=== PATIENT | female | born 1985 | race African-American/Black ===

== ENCOUNTER 2017-07-23 05:45 | Inpatient (IN) | payer MEDICAID, SELFPAY ==
[2017-07-16 14:49] VITALS: BMI 48.3
[2017-07-23] VITALS (20 sets, daily range): BP systolic 104–152; BP diastolic 64–97; PULSE 65–91; RESP 15–20; TEMP 36–37.1; O2SAT 97–100
[2017-07-23] MEDS: Lactated Ringers 1,000 ML 999 ML IV (06:00)
[2017-07-23 06:55] LABS: Absolute Lymphocyte Count 1.61 X10^3/ul (0.83-4.51); Absolute Neutrophil Count 3.5 X10^3/uL (2.0-7.7); Basophil# 0.01 X10^3/uL; Basophil% 0.2 % (0-1); Eosinophil# 0.12 X10^3/uL; Eosinophils% 2.1 % (0-5); Hematocrit 32.8 % (37-47); Hemoglobin 11.5 g/dl (12.0-15.0); Lymphocyte # 1.61 X10^3/ul (4.0); Lymphocyte % 28.3 % (19-41); Mean Corp Hgb Conc 35.1 g/gl (32-36); Mean Corpuscular Hgb 30.9 pg (27.0-32.0); Mean Corpuscular Volume 88.2 fL (81-99); Mean Platelet Vol. 9.9 fl (6.2-12.0); Monocyte# 0.41 X10^3/uL; Monocyte% 7.2 % (0-10); Neutrophil # 3.52 X10^3/uL (2.7-7.7); Platelet Count 195 K/mm3 (150-450); RBC Distribution Width CV 14.1 % (11.6-14.6); RBC Distribution Width SD 45.8 fl (35.1-43.9); Red Blood Count 3.72 M/mm3 (4.2-5.4); White Blood Count 5.7 K/mm3 (4.4-11.0)
[2017-07-23 06:56] LABS: POSITIVE COUNT NO; POSITIVE DIFFERENTIAL NO; POSITIVE MORPHOLOGY NO
[2017-07-23] MEDS: Sodium Citrate/Citric Acid 30 ML UDC PO (07:00)
[2017-07-23] MEDS: Lactated Ringers 1,000 ML 150 ML IV (07:00)
--- NOTE | 2017-07-23 07:14 | PCM.HP.OB ---
History Date of Admission: 07/23/17 Final MARIEL: 07/30/17 Gestational age: 39 Weeks and 0 Days History of this : Prior x2 Polyhydramnios HbC - no maternal intervention Pertinent Past Medical History: Chtn - on aldomet H/o PP depression See CCf H&P Allergies hydrocodone bitartrate [From Vicodin] Allergy (Verified 11/27/16 09:16) Hives meperidine HCl [From Demerol] Allergy (Verified 11/27/16 09:16) Hives Current Medications Citric Acid/Sodium Citrate (Bicitra) 30 ml PO UD TAJ Last Admin: 07/23/17 07:00 Dose: 30 ml Lactated Ringer's () 1,000 mls @ 150 mls/hr IV .Q6H40M TAJ Lactated Ringer's () 1,000 mls @ 999 mls/hr IV .Q1H1M TAJ PRN Reason: Wide Open Stop: 07/23/17 07:15 Last Admin: 07/23/17 07:00 Dose: 999 mls/hr Sodium Chloride () 0 ml IV UD TAJ Last Admin: 07/23/17 06:59 Dose: Not Given Smoking Status: Never smoker Alcohol: None Drug Use: none Number of Fetus(es): 1 Physical Exam General: Alert, Oriented x3 Abdomen: Soft, Non Tender, Non-Distended, Gravid Extremities:: No edema Assessment/Plan 31yo female for repeat Admit to L&D Proceed with repeat HbC - notify treasury consultant Social work consult PP Pre-op ancef Routine care
--- NOTE | 2017-07-23 07:18 | HP.PCM_ITS ---
History Date of Admission: 07/23/17 Final MARIEL: 07/30/17 Gestational age: 39 Weeks and 0 Days History of this : Prior x2 Polyhydramnios HbC - no maternal intervention Pertinent Past Medical History: Chtn - on aldomet H/o PP depression See CCf H&P Allergies hydrocodone bitartrate [From Vicodin] Allergy (Verified 11/27/16 09:16) Hives meperidine HCl [From Demerol] Allergy (Verified 11/27/16 09:16) Hives Current Medications Citric Acid/Sodium Citrate (Bicitra) 30 ml PO UD TAJ Last Admin: 07/23/17 07:00 Dose: 30 ml Lactated Ringer's () 1,000 mls @ 150 mls/hr IV .Q6H40M TAJ Lactated Ringer's () 1,000 mls @ 999 mls/hr IV .Q1H1M TAJ PRN Reason: Wide Open Stop: 07/23/17 07:15 Last Admin: 07/23/17 07:00 Dose: 999 mls/hr Sodium Chloride () 0 ml IV UD TAJ Last Admin: 07/23/17 06:59 Dose: Not Given Smoking Status: Never smoker Alcohol: None Drug Use: none Number of Fetus(es): 1 Physical Exam General: Alert, Oriented x3 Abdomen: Soft, Non Tender, Non-Distended, Gravid Extremities:: No edema Assessment/Plan 31yo female for repeat Admit to L&D Proceed with repeat HbC - notify sugar reprocess operator head Social work consult PP Pre-op ancef Routine care
[2017-07-23] MEDS: Cefazolin 2 GM in 0.9% Normal Saline 100 ML IV (07:27)
[2017-07-23] MEDS: Oxytocin 30 units/NS 500 ml 30 UNITS/500 ML IV.SOLN 167 UNITS IV (08:01)
[2017-07-23] MEDS: Ketorolac 30 MG/ML Syringe IV ×3 (08:30→20:58)
--- NOTE | 2017-07-23 08:49 | PCM.OB.CSR ---
Delivery Final MARIEL: 07/30/17 Gestational age: 39 Weeks and 0 Days Indications for : Repeat Elective Description of Procedure: Patient taken to OR where she was prepped and draped in normal sterile fashion in a dorsal lithotomy position with a leftward tilt. After ensuring adequacy of anesthesia the Pfannensteil skin incision was made and carried through to the underlying fascia w/ a bovie. The fascia was incised in the midline and carried laterally with the Soliz scissors. The rectus muscles were in the midline and the peritoneum was entered sharply. The bladder flap was dissected down with the Metzenbaum scissors and blunt dissection. The uterine incision was made with the scalpel and extended laterally w/ blunt dissection. The fetus was vertex and the head was brought to the incision in the flexed position. With good fundal pressure the head delivered easily. The shoulders & body easily followed. The cord was clamped and cut after 1 minute delay and the handed off to waiting RN. The placenta was delivered w/ gentle traction and fundal massage. The uterus was exteriorized and cleared of all clots and debris. The uterine incision was closed with 1 vicryl suture in a running locked fashion. A second layer of monocryl was used to imbricate the first layer and obtain hemostasis. The uterus was returned to the peritoneal cavity which was cleared of all clots and debris. Pelvis was irrigated. The uterine incision was reexamined and found to be hemostatic. Some carrie was placed over the uterine incision & blader flap due to the denuded areas. The parietal peritoneum was reapproximated with running 1 vicryl figure suture. The fascia was closed with looped PDS suture in a running standard fashion. The subcutaneous tissue was examined, any bleeding bovie cauterized. The subcutaneous tissue was reapproximated with 3-0 vicryl suture. The skin was closed in a subcuticular fashion by the BIOLOGY LECTURER with me present in the labor and delivery suite. I performed the remainder of the procedure w/ assistance. FINDINGS: Some scar tissue noted near fascia & rectus muscule. Scant scar tissue near bladder peritoneum. Amniotic Membrane Rupture Type: Artificial Amniotic Fluid Description: Lightly stained meconium Placenta Disposition: [facility] Drain: [place] to straight drain Fluids Replaced: 1700ml Cord Entanglement: None Cord Vessel Description: 3 Vessels Esitmated Blood Loss (ml): 800ml Infant Gender: Male (1 minute): 8 (5 minute): 9 Delayed cord clamping: Yes Pre-op Antibiotic Given: Ancef 2 grams IV x1
[2017-07-23] MEDS: Lactated Ringers 1,000 ML 100 ML IV ×2 (09:10→13:01)
[2017-07-23] MEDS: 0.9% Saline Lock 10 ML Syringe IV (14:20)
--- NOTE | 2017-07-23 17:58 | NURSING ---
1725 pt oob up to chair pt tolerated well; denies any dizziness while up;
--- NOTE | 2017-07-23 18:44 | NURSING ---
1830 pt returned to bed; dr mirza called on low urine output; orders received
[2017-07-23] MEDS: Lactated Ringers 500 ML 999 ML IV (18:50)
[2017-07-24] VITALS (7 sets, daily range): BP systolic 124–133; BP diastolic 64–89; PULSE 83–102; RESP 16–20; TEMP 36.2–37.3; O2SAT 97–99
[2017-07-24] MEDS: Ketorolac 30 MG/ML Syringe IV ×3 (03:29→14:53)
[2017-07-24 05:33] LABS: Hematocrit 24.1 % (37-47); Hemoglobin 8.8 g/dl (12.0-15.0); Mean Corp Hgb Conc 36.5 g/gl (32-36); Mean Corpuscular Hgb 32.5 pg (27.0-32.0); Mean Corpuscular Volume 88.9 fL (81-99); Mean Platelet Vol. 10.5 fl (6.2-12.0); Platelet Count 169 K/mm3 (150-450); RBC Distribution Width CV 13.1 % (11.6-14.6); RBC Distribution Width SD 40.7 fl (35.1-43.9); Red Blood Count 2.71 M/mm3 (4.2-5.4); White Blood Count 7.3 K/mm3 (4.4-11.0)
[2017-07-24 05:53] LABS: Scan Indicated on CBC? Y/N NO
[2017-07-24] MEDS: Lactated Ringers 1,000 ML 100 ML IV (06:30)
[2017-07-24] MEDS: Senna/Docusate Sodium 1 Tablet PO (08:21)
[2017-07-24] MEDS: 0.9% Saline Lock 10 ML Syringe IV ×2 (08:21→14:53)
--- NOTE | 2017-07-24 08:53 | PCM.PN.OB ---
Subjective: Patient sitting up in bed, patient's mother at bedside supporting patient at this time. Patient denies any issues or complaints. Patient reports that her pain is well controlled. Patient ambulating easily to bathroom and denies any problems with elimination. Patient is and baby is latched well to breast at this time; no issues with identified at this time. Objective: Nipples without cracks or blisters and is nonerythematous Incision dressing dry and intact Scant rubra lochia - Physical Exam General: Alert, Oriented x3, Cooperative HEENT: Atraumatic, Normocephalic Neck: Supple Lungs: Clear to auscultation, Normal air movement Cardiovascular: Regular rate, No murmurs Abdomen: Soft, Non Tender, Non-Distended Extremities: No edema, Capillary Refill Less than 3 Seconds Skin: No rashes, No breakdown Musculoskeletal: No Tenderness to Palpation of Joints or Extremities Neurological: Cranial nerves II-XII grossly intact Psych/Mental Status: Normal Affect, Appropriate, Alert and oriented to time, place, person, mood and affect Vital Signs Temp Pulse Resp BP Pulse Ox 98.3 F 88 18 126/64 H 97 07/24/17 06:00 07/24/17 06:00 07/24/17 06:00 07/24/17 06:00 07/24/17 06:00 Oxygen Delivery Method Room Air Weight: 247 lb 5.738 oz Body Mass Index (BMI) 48.3 Intake and Output for Last 24 Hours 07/22/17 07/23/17 07/24/17 23:59 23:59 23:59 Intake Total 4463 / 4463 1700 / 1700 Output Total 450 / 450 375 / 375 Balance 4013 / 4013 1325 / 1325 Laboratory Tests Past 24 Hrs 07/24/17 05:16 WBC 7.3 RBC 2.71 L Hgb 8.8 L Hct 24.1 L MCV 88.9 MCH 32.5 H MCHC 36.5 H RDW 13.1 RDW Differential 40.7 Plt Count 169 MPV 10.5 Medical Necessity - Tobacco Use Smoking Status: Never smoker Assessment/Plan A: 31 y/o G4 now P4, s/p repeat LTCS, Hx of CHTN - normotensive at this time, Asymptomatic Anemia P: 1) Repeat CBC at noon today 2) Consultation with Dr. Simmons re: reinitiation of antihypertensive medications - patient had been on Aldomet during the . Decision made at this time to not restart medication at this time as patient has been normotensive thus far. Will continue to monitor blood pressures through the day. 3) Continue orders at this time and assisting with Twila Kang CNM
[2017-07-24] MEDS: oxyCODONE 5 MG Tablet PO ×2 (11:02→18:06)
[2017-07-24 12:47] LABS: Hematocrit 24.8 % (37-47); Hemoglobin 8.9 g/dl (12.0-15.0); Mean Corp Hgb Conc 35.9 g/gl (32-36); Mean Corpuscular Hgb 31.9 pg (27.0-32.0); Mean Corpuscular Volume 88.9 fL (81-99); Mean Platelet Vol. 10.9 fl (6.2-12.0); Platelet Count 181 K/mm3 (150-450); RBC Distribution Width SD 40.3 fl (35.1-43.9); Red Blood Count 2.79 M/mm3 (4.2-5.4); White Blood Count 7.9 K/mm3 (4.4-11.0)
[2017-07-24 12:56] LABS: Scan Indicated on CBC? Y/N NO
[2017-07-24] MEDS: Ibuprofen 600 MG Tablet PO (20:47)
[2017-07-25] MEDS: Acetaminophen 500 MG Tablet 1000 MG PO (02:46)
[2017-07-25 02:49] VITALS: BP 143/88; PULSE 91; RESP 18; TEMP 36.8; O2SAT 100
[2017-07-25] MEDS: Ibuprofen 600 MG Tablet PO (06:27)
[2017-07-25 08:20] VITALS: BP 143/83; PULSE 88; RESP 18; TEMP 36.9; O2SAT 97
--- NOTE | 2017-07-25 08:53 | PCM.DCCSEC ---
Discharge Diet: No Restrictions Discharge Activity: May not drive while taking narcotic pain medications., May Shower May resume sexual activity in: 4-6 weeks Weight Bearing Status: Weight bearing as tolerated Call your doctor if your incision/area has: Continuous Slow Oozing, Sudden Increased Bleeding, Increased Pain/ Swelling, Increased Redness, Foul Smelling Discharge, Swelling at the incision site Suture Line Care: Avoid Pulling/Pushing, Avoid Pinching/Bending Cleanse incision/area with: Soap & Water Additional Instructions: If you experience any of the following, contact your healthcare provider. Bleeding that soaks a pad every hour for 2 hours Fever 100.4 or higher Unrelieved incision or abdominal pain Swelling, redness, discharge or bleeding from your incision or episiotomy site Your incision begins to separate Problems urinating (including inability to urinate or burning while urinating). Visual changes Severe headache Flu-like symptoms Pain or redness in one of both of your breasts Pain, warmth, tenderness or swelling in your legs, especially the calf area Frequent nausea and vomiting Symptoms of depression or anxiety If you experience any of the following, call 911 or go to the nearest Emergency Room. Chest pain Problems breathing Seizure activity Partial or complete paralysis of a body part, slurred speech, weakness or drooping of the face, or a sudden inability to walk or hold your balance Allergies/Adverse Reactions: Allergies hydrocodone bitartrate [From Vicodin] Allergy (Verified 11/27/16 09:16) Hives meperidine HCl [From Demerol] Allergy (Verified 11/27/16 09:16) Hives Medications to take at Discharge Vits [Prenatabs FA ] 1 tablet PO DAILY 07/16/17 Methyldopa 1 tab PO DAILY 07/23/17 Docusate Sodium [Colace] 100 mg PO BID PRN #60 cap 07/25/17 Ferrous Sulfate, Dried [Slow Release Iron] 160 mg PO BID #60 tablet.er 07/25/17 Ibuprofen 600 mg PO Q6H PRN PRN #60 tab 07/25/17 Oxycodone HCl/Acetaminophen [Percocet 5/325] 1 tab PO Q6H PRN PRN 7 Days #28 tab 07/25/17 The following prescriptions were given: Ibuprofen 600 mg PO Q6H PRN PRN #60 tab PRN Reason: Pain Oxycodone HCl/Acetaminophen [Percocet 5/325] 1 tab PO Q6H PRN PRN 7 Days #28 tab PRN Reason: Pain Docusate Sodium [Colace] 100 mg PO BID PRN #60 cap PRN Reason: Constipation Ferrous Sulfate, Dried [Slow Release Iron] 160 mg PO BID #60 tablet.er Follow-Up: Call to make an appointment with your doctor for an incision check in 1-2 weeks. You will also need a 6 week post- follow up appointment. Primary Care Physician: Care Physician,No Primary [Primary Care Provider] -
--- NOTE | 2017-07-25 08:59 | DCINST_ITS ---
Discharge Diet: No Restrictions Discharge Activity: May not drive while taking narcotic pain medications., May Shower May resume sexual activity in: 4-6 weeks Weight Bearing Status: Weight bearing as tolerated Call your doctor if your incision/area has: Continuous Slow Oozing, Sudden Increased Bleeding, Increased Pain/ Swelling, Increased Redness, Foul Smelling Discharge, Swelling at the incision site Suture Line Care: Avoid Pulling/Pushing, Avoid Pinching/Bending Cleanse incision/area with: Soap & Water Additional Instructions: If you experience any of the following, contact your healthcare provider. * Bleeding that soaks a pad every hour for 2 hours * Fever 100.4 or higher * Unrelieved incision or abdominal pain * Swelling, redness, discharge or bleeding from your incision or episiotomy site * Your incision begins to separate * Problems urinating (including inability to urinate or burning while urinating) . * Visual changes * Severe headache * Flu-like symptoms * Pain or redness in one of both of your breasts * Pain, warmth, tenderness or swelling in your legs, especially the calf area * Frequent nausea and vomiting * Symptoms of depression or anxiety If you experience any of the following, call 911 or go to the nearest Emergency Room. * Chest pain * Problems breathing * Seizure activity * Partial or complete paralysis of a body part, slurred speech, weakness or drooping of the face, or a sudden inability to walk or hold your balance Allergies/Adverse Reactions: Allergies hydrocodone bitartrate [From Vicodin] Allergy (Verified 11/27/16 09:16) Hives meperidine HCl [From Demerol] Allergy (Verified 11/27/16 09:16) Hives Medications to take at Discharge Vits [Prenatabs FA ] 1 tablet PO DAILY 07/16/17 Methyldopa 1 tab PO DAILY 07/23/17 Docusate Sodium [Colace] 100 mg PO BID PRN #60 cap 07/25/17 Ferrous Sulfate, Dried [Slow Release Iron] 160 mg PO BID #60 tablet.er 07/25/17 Ibuprofen 600 mg PO Q6H PRN PRN #60 tab 07/25/17 Oxycodone HCl/Acetaminophen [Percocet 5/325] 1 tab PO Q6H PRN PRN 7 Days #28 tab 07/25/17 The following prescriptions were given: Ibuprofen 600 mg PO Q6H PRN PRN #60 tab PRN Reason: Pain Oxycodone HCl/Acetaminophen [Percocet 5/325] 1 tab PO Q6H PRN PRN 7 Days #28 tab PRN Reason: Pain Docusate Sodium [Colace] 100 mg PO BID PRN #60 cap PRN Reason: Constipation Ferrous Sulfate, Dried [Slow Release Iron] 160 mg PO BID #60 tablet.er Follow-Up: Call to make an appointment with your doctor for an incision check in 1-2 weeks. You will also need a 6 week post- follow up appointment. Primary Care Physician: Care Physician,No Primary [Primary Care Provider] -
--- NOTE | 2017-07-25 09:00 | PCM.PN.OB ---
Subjective: Pain controlled - Physical Exam General: Alert, Oriented x3 Abdomen: Soft, Non Tender, Non-Distended - ff mid & below umb; incision - bandage c/d/i Extremities: No Calf Tenderness Vital Signs Temp Pulse Resp BP Pulse Ox 98.3 F 91 18 143/88 H 100 07/25/17 02:49 07/25/17 02:49 07/25/17 02:49 07/25/17 02:49 07/25/17 02:49 Oxygen Delivery Method Room Air Weight: 247 lb 5.738 oz Body Mass Index (BMI) 48.3 Intake and Output for Last 24 Hours 07/23/17 07/24/17 07/25/17 23:59 23:59 23:59 Intake Total 4463 / 4463 1700 / 1700 Output Total 450 / 450 1075 / 1075 Balance 4013 / 4013 625 / 625 Laboratory Tests Past 24 Hrs 07/24/17 12:15 WBC 7.9 RBC 2.79 L Hgb 8.9 L Hct 24.8 L MCV 88.9 MCH 31.9 MCHC 35.9 RDW 13.0 RDW Differential 40.3 Plt Count 181 MPV 10.9 Medical Necessity - Tobacco Use Smoking Status: Never smoker Assessment/Plan POD#2 Chronic hypertension - resume aldomet 250mg antonio, reviewed R/B/A in . Also discussed symptoms of PP preE & when to call. Anemia - D/c home on bid iron D/c home later today per patient request Continue social work consultation
[2017-07-25] MEDS: oxyCODONE 5 MG Tablet PO (09:37)
[2017-07-25 13:00] VITALS: BP 140/83; PULSE 88; RESP 18; TEMP 36.8; O2SAT 97
== END 2017-07-25 13:40 | disposition home or self-care (01) | DRG 370 ==
PROVIDERS: Advanced Practice Midwife; Admitting Provider Obstetrics & Gynecology; Visit Provider Obstetrics & Gynecology
PROC: 10D00Z1 Extraction of Products of Conception, Low, Open Approach (ICD-10-PCS; CPT 59514; principal; 2017-07-23 07:15)
DX: O10.92 Unspecified pre-existing hypertension complicating childbirth (principal); O90.81 Anemia of the puerperium; Z3A.39 39 weeks gestation of pregnancy; Z37.0 Single live birth; O34.211 Maternal care for low transverse scar from previous cesarean delivery; O77.0 Labor and delivery complicated by meconium in amniotic fluid; Z79.899 Other long term (current) drug therapy
CPT/HCPCS: 85025; 85027; 99218; J7120; A4216; G0378; J2405

== ENCOUNTER 2018-08-08 16:27 | Emergency (ER) | payer MEDICAID, SELFPAY ==
[2018-08-08 16:28] VITALS: BP 167/121; PULSE 80; RESP 16; TEMP 36.4; O2SAT 100; BMI 39.0
--- NOTE | 2018-08-08 16:42 | ED.VISSUMM ---
- ER Visit Summary Date of Service: 08/08/18 Chief Complaint: Eye watering History of Present Illness: The patient is a 33 F with right eye watering. Symptoms started earlier today. Associated with pain. Worse in the light. She tried eyedrops, but nothing seems to help. She never had this before. Denies any exposures or trauma. Denies contact lens use. Denies fever or systemic symptoms. Denies rash. Denies any other HEENT symptoms. Denies any history of glaucoma or sickle cell disease. Physical Examination: Blood pressure 167/121. Otherwise vitals unremarkable. Afebrile. Patient sitting comfortably in a well lit room. No acute distress. Very mild ptosis on the right. Conjunctivae and sclera are injected. Pupils normal, reactive. Good extraocular motion. Otherwise gross exam is unremarkable. Test Results: Visual acuity performed by nursing. Tetracaine and fluorescein applied. Patient has a band over the lower half of her cornea. This is hazy with floor seen uptake. I do not see dendritic lesions or linear abrasions. No ulcers or deep injuries. Intraocular pressures obtained and is 21. Emergency Department Course and Treatment: Patient was discussed with Dr. Fitzgerald. He suspects based on my findings that the patient slept with her eye open last night. He advised antibiotics and follow-up with him tomorrow if she is having continued symptoms. Treatment Plan: As above Disposition: Discharge Impression: Right eye corneal abrasion This note was generated with [employer] dictation software. It may contain incorrect words, spelling, and punctuation that were not noted in review of the chart prior to signing ED Disposition - Plan for ED Patient: Referrals: Care Physician,No Primary [Primary Care Provider] -
--- NOTE | 2018-08-08 17:34 | ED.DEP ---
ED Disposition - Plan for ED Patient: Instructions: ED Eye Injury Corneal Abrasion Referrals: Sincere Fitzgerald MD [STAFF PHYSICIAN] -
[2018-08-08] MEDS: Fluorescein 1 MG STRIP 1 STRIP OPHTHALMIC (17:48)
[2018-08-08] MEDS: Erythromycin Base 1 OPTH.TUBE 1 APPLIC RIGHT EYE (17:48)
[2018-08-08] MEDS: Tetracaine 0.5% Ophthalmic Bottle OPHTHALMIC (17:48)
== END 2018-08-08 17:49 | disposition home or self-care (01) ==
LOC: ED 16:47
PROVIDERS: Emergency Provider Emergency Medicine
DX: S05.01XA Injury of conjunctiva and corneal abrasion without foreign body, right eye, initial encounter (principal); Z72.0 Tobacco use; X58.XXXA Exposure to other specified factors, initial encounter; Y93.9 Activity, unspecified; Y92.89 Other specified places as the place of occurrence of the external cause; Y99.8 Other external cause status
CPT/HCPCS: 99283

== ENCOUNTER 2019-02-10 09:38 | Emergency (ER) | payer MEDICAID, SELFPAY ==
[2019-02-10 09:40] VITALS: BP 163/123; PULSE 78; RESP 18; TEMP 36.9; O2SAT 98; BMI 35.2
--- NOTE | 2019-02-10 09:51 | ED.DCSUM_ITS ---
History of Present Illness Chief Complaint: Abd Pain Informant: Patient Onset: Days - 3 Narrative: 3 days intermittent right upper quadrant abdominal pain. No fevers. No nausea or vomiting. Normal bowel movements. No urinary symptoms. Denies any previous similar symptoms in the past. States no worsening factors, states last meal was yesterday evening with no flare. However pain worsened this morning. No history of gastric ulcers or kidney injury. States he uses Aleve as needed for pain. Does not take any daily medicines. 3 C-sections in the past. Reports does not follow specific PCP however was able to get in with the physicians when she needs to as an outpatient. Last menstrual period started 2 days ago. Prior similar symptoms: No Past Medical History - Allergies and Home Meds Allergies/Adverse Reactions: Allergies hydrocodone bitartrate [From Vicodin] Allergy (Verified 02/10/19 09:46) Hives meperidine HCl [From Demerol] Allergy (Verified 02/10/19 09:46) Hives Primary Care Physician: Care Physician,No Primary [Primary Care Provider] - Surgical History: - - x3 Smoking Status: Never smoker Review of Systems General: Denies: Chills, Fever, Sweats Eyes: Denies: Visual changes - bilaterally, Diplopia ENT: Denies: Rhinorrhea, Sore throat Cardiovascular: Denies: Chest pain, Palpitations Respiratory: Denies: Dyspnea, Cough, Dyspnea on exertion Gastrointestinal: Reports: Abdominal pain. Denies: Nausea, Vomiting, Diarrhea, Melena, Hematochezia Genitourinary: Denies: Dysuria, Hematuria, Frequency Musculoskeletal: Denies: Back pain, Extremity Pain Skin: Denies: Rash, Wounds Neurological: Denies: Headache, Weakness, Numbness Physical Exam Vital Signs/Narrative: Vital Signs Temp Pulse Resp BP Pulse Ox 02/10/19 09:40 98.4 F 78 18 163/123 H 98 Inital Vital Signs reviewed: Yes General: Well nourished, Well developed, No Acute Distress Head: Normocephalic, Atraumatic Eyes: Perrl, EOMI ENT: Moist mucous membranes, No rhinorrhea Neck: Supple, Nontender Cardiovascular: Regular rate, Regular rhythm, No murmurs Respiratory: No distress, CTA bilaterally, Chest nontender Abdomen: Soft, Nondistended, Normal bowel sounds, - - Mild tenderness to deep palpation right upper quadrant without guarding or rebound. Negative McBurney's tenderness. Back: Nontender, Normal Inspection Extremities: Nontender, No edema Skin: Normal color, No rash Neurological: Alert, Oriented x3, Cranial nerves II-XII grossly intact, Normal Strength, Normal Sensation Psychological: Normal affect, Normal Mood Diagnostic/Tx/Re-eval Abnormal Lab Results 02/10/19 02/10/19 02/10/19 10:15 10:29 10:29 WBC Cancelled 4.8 Corrected WBC Cancelled RBC Cancelled 4.00 L Hgb Cancelled 10.2 L Hct Cancelled 29.9 L MCV Cancelled 74.8 L MCH Cancelled 25.5 L MCHC Cancelled 34.1 RDW Std Deviation Cancelled 48.9 H RDW Coeff of Ruby Cancelled 18.0 H Plt Count Cancelled 216 MPV Cancelled 9.8 Immature Gran % (Auto) Cancelled 0.200 Neut % (Auto) Cancelled 49.3 Lymph % (Auto) Cancelled 41.5 H [place] % (Auto) Cancelled 6.3 Eos % (Auto) Cancelled 2.1 Baso % (Auto) Cancelled 0.6 Absolute Neuts (auto) Cancelled 2.3 Absolute Lymphs (auto) Cancelled 1.97 Total Counted Cancelled Neutrophils % (Manual) Cancelled Band Neutrophils % Cancelled Lymphocytes % (Manual) Cancelled Monocytes % (Manual) Cancelled Eosinophils % (Manual) Cancelled Basophils % (Manual) Cancelled Metamyelocytes % Cancelled Myelocytes % Cancelled Promyelocytes % Cancelled Blast Cells % Cancelled Plasma Cell % (Manual) Cancelled Other Cells % Cancelled Nucleated RBC % Cancelled 0 Nucleated RBCs/100 WBC Cancelled Differential Comment Cancelled Diff Path Review Cancelled Hypersegmented Neuts Cancelled Atypical Lymphocytes Cancelled Reactive Lymphocytes Cancelled Smudge Cells Cancelled Toxic Granulation Cancelled Toxic Vacuolation Cancelled Dohle Bodies Cancelled Kimo Rods Cancelled Platelet Estimate Cancelled Plt Morphology Comment Cancelled RBC Morphology Cancelled Polychromasia Cancelled Hypochromasia Cancelled Poikilocytosis Cancelled Basophilic Stippling Cancelled Anisocytosis Cancelled Microcytosis Cancelled Macrocytosis Cancelled Spherocytes Cancelled Sickle Cells Cancelled Target Cells Cancelled Tear Drop Cells Cancelled Ovalocytes Cancelled Stomatocytes Cancelled [place] Bodies Cancelled Dotty Cells Cancelled Bite Cells Cancelled Crenated Cell Cancelled Acanthocytes (Spur) Cancelled Rouleaux Cancelled Schistocytes Cancelled Sodium 139 Potassium 3.8 Chloride 110 H Carbon Dioxide 23.0 Anion Gap 6 BUN 13 Creatinine 0.68 Estim Creat Clear Calc 86.10 Est GFR (MDRD) Af Amer 128 Est GFR (MDRD) Non-Af 106 BUN/Creatinine Ratio 19.0 Glucose 81 Calcium 9.0 Total Bilirubin 0.50 Direct Bilirubin 0.11 AST 17 ALT 13 Alkaline Phosphatase 52 Total Protein 8.0 Albumin 3.6 Globulin 4.4 H Lipase 116 Clinical Impression(s) from Imaging Studies Gallbladder Ultrasound 02/10/19 09:51 IMPRESSION: Normal right upper quadrant ultrasound examination. Electronically Signed: Roney Ruelas, at 12:20 EST , Service support , - Medical Decision Making Patient vital signs stable. Nonsurgical abdomen. Pain right upper quadrant, initially denied any medicines. Did have labs are normal ultrasound gallbladder negative. Later requested medicines given Toradol with improvement. Treat short course of NSAIDs use as needed she will follow-up with her PCP for reevaluation. All questions were answered. ED Disposition - Plan for ED Patient: Disposition: Home or Assisted Living Diagnosis: RUQ abdominal pain Instructions: ABDOMINAL PAIN, Unknown Cause, (Female) Prescriptions: Ibuprofen [Motrin] 600 mg PO Q6H PRN PRN #20 tablet PRN Reason: Pain Score 1-10/10 Referrals: Care Physician,No Primary [Primary Care Provider] - Additional Instructions: RUQ ultrasound negative. Labs normal. Follow up with your doctor.
--- NOTE | 2019-02-10 09:51 | US_ITS ---
STUDY: ABDOMINAL ULTRASOUND - RIGHT UPPER QUADRANT REASON FOR VISIT: Female, 33 years old 3 day history of right upper quadrant pain. TECHNIQUE: Ultrasound evaluation of the right upper quadrant was performed with real-time and static galdamez-scale imaging. TECHNICAL QUALITY: Adequate. COMPARISON: None. FINDINGS: Liver: The liver measures 15.8 cm. There is normal echogenicity of the liver. The bile ducts are within normal limits. There is hepatic color flow. The direction of portal flow is hepatopetal. There is no demonstrated mass lesion. Gallbladder: Normal distended gallbladder. The gallbladder wall measures 1.8 mm. There is a negative sonographic Bowser's sign. There is no pericholecystic fluid. There are no gallstones. Common Bile Duct (C.B.D.): The common bile duct measures 3.0 mm. Pancreas: Normal size of the head, body and tail of the pancreas. There is normal echogenicity of the pancreas. There is no demonstrated pancreatic mass or cyst. Right Kidney: Normal size of the right kidney. The right kidney measures 10.8 cm x 6 x 5.1 cm. Normal renal cortex. The right cortex measures 1.5 cm. There is no demonstrated renal mass or cyst. There is no right hydronephrosis. US/Gallbladder IMPRESSION: Normal right upper quadrant ultrasound examination. Electronically Signed: Roney Ruelas, at 12:20 EST , Service support ,
--- NOTE | 2019-02-10 10:24 | NURSING ---
PER MINA SINGH, NEED ANOTHER PURPLE TOP
[2019-02-10 10:36] LABS: Absolute Lymphocyte Count 1.97 X10^3/uL (0.83-4.51); Absolute Neutrophil Count 2.3 X10^3/uL (2.0-7.7); Basophil# 0.03 X10^3/uL; Basophil% 0.6 % (0-1); Eosinophils% 2.1 % (0-5); Hematocrit 29.9 % (37-47); Hemoglobin 10.2 g/dL (12.0-15.0); Lymphocyte # 1.97 X10^3/ul (4.0); Lymphocyte % 41.5 % (19-41); Mean Corp Hgb Conc 34.1 g/dL (32-36); Mean Corpuscular Hgb 25.5 pg (27.0-32.0); Mean Corpuscular Volume 74.8 fL (81-99); Mean Platelet Vol. 9.8 fl (6.2-12.0); Monocyte% 6.3 % (0-10); NRBC Flagged by Analyzer 0 % (0-5); Neutrophil # 2.34 X10^3/uL (2.7-7.7); Neutrophil % 49.3 % (47-70); Platelet Count 216 K/mm3 (150-450); RBC Distribution Width SD 48.9 fl (35.1-43.9); White Blood Count 4.8 K/mm3 (4.4-11.0)
[2019-02-10 10:52] LABS: AST(SGOT) 17 U/L (15-37); Alanine Aminotransfer ALT/SGPT 13 U/L (13-56); Albumin, Serum 3.6 g/dL (3.2-5.0); Alkaline Phosphatase 52 U/L (45-117); Anion Gap 6 (5-15); BUN 13 mg/dL (7-18); Bilirubin, Direct 0.11 mg/dL (0.00-0.30); Chloride 110 mmol/L (98-107); Creatinine, Serum 0.68 mg/dL (0.55-1.02); EST Glomerular Filtration Rate 106 mL/min (>60); Est Glom Filt Rate - Afr Amer 128 mL/min (>60); Globulin 4.4 g/dL (2.2-4.2); Glucose 81 mg/dL (74-106); Lipase 116 U/L (73-393); Potassium 3.8 mmol/L (3.5-5.1); Sodium Level 139 mmol/L (136-145)
[2019-02-10 12:05] VITALS: BP 188/119; PULSE 71; RESP 16; O2SAT 98
[2019-02-10] MEDS: Ketorolac 30 MG/ML Syringe IV (12:37)
[2019-02-10 13:52] VITALS: BP 170/117; RESP 16
--- NOTE | 2019-02-10 13:55 | ED.RN ---
REVIEWED D/C INSTRUCTIONS, FOLLOW UP CARE, PRESCRIPTION, AND S/S THAT WOULD WARRANT A RETURN TO THE ED WITH PT. PT VERBALIZED AN UNDERSTANDING AND DENIES FURTHER QUESTIONS FOR THIS RN. PT SKIN WARM AND DRY, RESP EVEN AND UNLABORED, PT A&O X 3, NO DISTRESS NOTED. PT AMBULATED OUT OF ED, GAIT STEADY.
== END 2019-02-10 13:56 | disposition home or self-care (01) ==
PROVIDERS: Emergency Provider Emergency Medicine
DX: R10.11 Right upper quadrant pain (principal)
CPT/HCPCS: 76705; 80048; 80076; 83690; 85025; 96374; 99285; A4216

== ENCOUNTER 2019-04-14 08:52 | Emergency (ER) | payer MEDICAID, SELFPAY ==
[2019-04-14 08:53] VITALS: BP 189/123; PULSE 102; RESP 16; TEMP 38.5; O2SAT 96; BMI 47.2
--- NOTE | 2019-04-14 09:07 | RAD_ITS ---
STUDY: X-RAY CHEST REASON FOR EXAM: Female, 33 years old. Cold like symptoms x 3 days TECHNIQUE: PA and lateral views of the chest. COMPARISON: None. FINDINGS: The lungs are clear and expanded. There is no demonstrated pleural abnormality. Normal size heart. Normal mediastinum and deepali. Normal visualized pulmonary arteries. Normal visualized aortic arch and descending thoracic aorta. Normal visualized thoracic spine. Normal visualized ribs, clavicles, and shoulders. There is no demonstrated abnormality of the visualized soft tissue structures of the upper abdomen. RAD/Chest PA and Lateral IMPRESSION: Normal x-ray examination of the chest. Electronically Signed: Roney Ruelas, at 9:38 EST , Service support ,
[2019-04-14] MEDS: Ibuprofen 600 MG Tablet PO (09:13)
[2019-04-14] MEDS: Acetaminophen 500 MG Tablet 1000 MG PO (09:13)
--- NOTE | 2019-04-14 09:13 | ED.VISSUMM ---
- ER Visit Summary Date of Service: 04/14/19 Chief Complaint: Fever History of Present Illness: The patient is a 33 F with no primary care physician. She reports that she has a fever that began 3 days ago. Is been 101 degrees. She had chills and cold sweats. She has a sore throat that set at 10 severity. She has a cough productive green sputum without blood. She has mild right ear pain. She has a headache that is 10 out of 10 in severity and aching. She does have a history of similar headaches. She also complains of generalized weakness. She did get a flu shot this year. Physical Examination: Vitals: One 1.3, 189/123, 102, 16, 96% on room air which is not hypoxic. General: Well-nourished and well-developed. Head: Normocephalic atraumatic. HEENT: TMs are within normal limits bilaterally. Pharyngeal erythema. No tonsillar exudate or enlargement. No cervical lymphadenopathy. Neck: Supple, no lymphadenopathy. No JVD. Nontender. Cardiovascular: Regular rate and rhythm. No murmurs. Respiratory: No respiratory distress. Clear to auscultation bilaterally. Abdominal: Soft, nontender, nondistended, normal bowel sounds. No guarding, rebound, or peritoneal signs. Back: Nontender. Extremities: Nontender, no edema. Skin: Normal color, no rash. Neurologic: Alert and oriented ?3. Cranial nerves II through XII are intact. Normal strength and sensation. Psych: Normal affect. Test Results: Chest x-ray shows no acute disease. Rapid strep is negative. Influenza is negative. Emergency Department Course and Treatment: Patient refused an IV or test. She reports that she is not sexually active. She was given Tylenol and ibuprofen p.o. She is resting more comfortably. Repeat blood pressure is 190/111. Treatment Plan: Patient will be discharged with symptomatic care. Instructed to follow-up with Dr. Hernandez, who is next on list for no doc, in 3 to 5 days for further evaluation. She does understand that she needs to have her blood pressure checked again. If this remains elevated she will need to be started on blood pressure medications. Return to the emergency department for any worsening symptoms. Disposition: To home in improved and stable condition. Impression: 1. URI. 2. Hypertension. This note was generated with Dragon dictation software. It may contain incorrect words, spelling, and punctuation that were not noted in review of the chart prior to signing ED Disposition - Plan for ED Patient: Instructions: URI, Viral, No Abx (Adult), HYPERTENSION, To Be Confirmed Referrals: Daniel Hernandez DO [NON CLINICAL AFFILIATE] - 3-5 Days
[2019-04-14 09:18] VITALS: O2SAT 96
[2019-04-14 09:30] VITALS: BP 190/111
== END 2019-04-14 10:15 | disposition home or self-care (01) ==
LOC: ED 09:16
PROVIDERS: Emergency Provider Emergency Medicine
DX: J06.9 Acute upper respiratory infection, unspecified (principal); I10 Essential (primary) hypertension; Z72.0 Tobacco use
CPT/HCPCS: 71046; 87804; 87880; 99283

== ENCOUNTER 2019-11-26 13:55 | Emergency (ER) | payer MEDICAID, SELFPAY ==
[2019-11-26 13:56] VITALS: BP 162/110; PULSE 87; RESP 16; TEMP 36.4; O2SAT 99; BMI 34.7
--- NOTE | 2019-11-26 15:15 | RAD_ITS ---
STUDY: X-RAY - RIGHT TIBIA AND FIBULA REASON FOR EXAM: Female, 34 years old. PAIN S./P FALLING ON STAIRS TECHNIQUE: 2 view(s) of the tibia and fibula were obtained. COMPARISON: None. FINDINGS: Normal visualized tibia. Normal visualized fibula. The soft tissue structures are unremarkable. RAD/Tibia & Fibula 2 Views IMPRESSION: Normal x-ray examination of the tibia and fibula. Electronically Signed: Roney Ruelas, at 15:46 EDT , Service support ,
--- NOTE | 2019-11-26 15:59 | ED.VISSUMM ---
- ER Visit Summary Date of Service: 11/26/19 Chief Complaint: Right leg pain History of Present Illness: The patient is a 34 F who presents with right leg pain that began after a fall today. Patient states she tripped on the steps and hit her right leg. Patient states the pain is over the anterior aspect of the right lower leg. Patient describes the pain is sharp. Patient states pain is worse with certain movements. Patient denies any paresthesias or weakness. Patient denies any head injury or loss of consciousness. Patient denies any other injuries. Physical Examination: Vital signs are stable. Patient is afebrile. Patient is in no acute distress. Musculoskeletal exam reveals tenderness over the anterior lateral aspect of the right lower leg. There is some mild edema. There is no ecchymosis. There is no bony crepitance or step-off. Range of motion was limited in all motions of the right lower leg secondary to pain. Sensation was intact to light touch in all digits. Capillary refill was less than 2 seconds in all digits. Pedal pulses are equal bilaterally. Test Results: X-rays of the right tib-fib were obtained. There is no acute fracture. This was interpreted by the radiologist and myself. Emergency Department Course and Treatment: Patient was instructed to ice and elevate the right leg. Patient was advised of her x-ray findings. Patient was instructed take Tylenol or ibuprofen as needed for pain. Patient was instructed to follow-up with her primary care physician in 5 to 7 days. Patient understood and was agreeable with the plan. All questions were answered. Disposition: Discharge home Impression: Right leg contusion This note was generated with RE[employer]IVE dictation software. It may contain incorrect words, spelling, and punctuation that were not noted in review of the chart prior to signing ED Disposition - Plan for ED Patient: Disposition: Home or Assisted Living Diagnosis: Contusion of right lower leg, initial encounter Instructions: ED EXTREMITY CONTUSION Lower Referrals: Elliott Ratliff MD [STAFF PHYSICIAN] - 5-7 Days
== END 2019-11-26 16:40 | disposition home or self-care (01) ==
PROVIDERS: Emergency Provider Emergency Medicine
DX: S80.11XA Contusion of right lower leg, initial encounter (principal); W01.0XXA Fall on same level from slipping, tripping and stumbling without subsequent striking against object, initial encounter; Y93.01 Activity, walking, marching and hiking; Y92.89 Other specified places as the place of occurrence of the external cause; Y99.8 Other external cause status
CPT/HCPCS: 73590; 99282

== ENCOUNTER 2021-06-05 09:13 | Inpatient (IN) | payer MEDICAID, SELFPAY ==
[2021-06-05] VITALS (17 sets, daily range): BP systolic 124–212; BP diastolic 91–161; PULSE 73–119; RESP 16–24; TEMP 36.3–36.9; O2SAT 95–100; BMI 44.1; BMI 43.3
--- NOTE | 2021-06-05 09:22 | EKG12_ITS ---
Test Reason : Blood Pressure : / mmHG Vent. Rate : 107 BPM Atrial Rate : 107 BPM P-R Int : 148 ms QRS Dur : 088 ms QT Int : 366 ms P-R-T Axes : 034 022 062 degrees QTc Int : 488 ms Sinus tachycardia Poor R wave progression Nonspecific T wave abnormality Confirmed by JOCELYN GILLIS, AKSHAT ([id number]), senior editor MONET CARROLL ([id number]) on 06/08/2021 9:59:35 AM Referred By: Confirmed By:AKSHAT BANKS MD
--- NOTE | 2021-06-05 09:24 | ED.VIS.CHEST ---
HPI History of Present Illness Chief Complaint: Chest Pain Informant: patient Onset/Context/Timing Onset: Days (1 week, worse since last evening) Activity at onset: gradual Timing: Waxes and wanes Quality: Positive for Aching, Heaviness and Pressure Location: - (Across the upper chest) Current Severity: Moderate Maximum Severity: Moderate Worsened By: Exertion Associated Symptoms: Positive for Dyspnea Narrative Narrative: Patient presents secondary to chest pain. She reports chest pain across her upper chest for the past week with some radiation into her arms and back. She states pain has been significantly worse since last evening. She reports shortness of breath with any exertion. She does report a history of hypertension but has not been on medication for quite some time. [facility] Medical History Anxiety Hypertension Home Medications NK 06/05/21 [History Last Taken Unknown] Allergy/AdvReac Type Severity Reaction Status Date / Time hydrocodone bitartrate Allergy Hives Verified 06/05/21 09:17 [From Vicodin] meperidine HCl [From Demerol] Allergy Hives Verified 06/05/21 09:17 Social History Smoking Status: Current every day smoker tobacco type: cigarettes ROS ROS ED Constitutional Constitutional ED: Denies chills or fever(s) Eyes Eyes: Denies change in vision ENT ENT ED: Denies sore throat Cardiovascular Cardiovascular: Reports chest pain Respiratory/Chest Respiratory/Chest: Reports dyspnea; Denies cough Gastrointestinal Gastrointestinal: Denies abdominal pain, diarrhea, nausea or vomiting Genitourinary Genitourinary ED: Denies dysuria Musculoskeletal Musculoskeletal: Reports back pain Integumentary Denies rash Neurologic Neurologic: Denies headache(s) or weakness Allergic/Immunologic Allergic/Immunologic ED: Denies urticaria EXAM Physical Exam Const Vital Signs: 06/05/21 09:13 06/05/21 09:19 06/05/21 09:23 Temperature 98.5 F Temperature Source Oral Pulse Rate 112 H 119 H Respiratory Rate 24 H 20 H Respiratory Effort Normal Non-Labored Respiratory Pattern Tachypnea Blood Pressure 212/161 H 212/161 H Blood Pressure Mean 178 178 Pulse Ox 100 99 Oxygen Delivery Method Room Air Room Air Room Air 06/05/21 09:32 06/05/21 09:45 06/05/21 10:13 Temperature Temperature Source Pulse Rate 97 97 Respiratory Rate 20 H 16 Respiratory Effort Respiratory Pattern Blood Pressure 195/152 H 195/141 H 175/137 H Blood Pressure Mean 166 159 149 Pulse Ox 100 95 Oxygen Delivery Method Room Air Room Air 06/05/21 11:15 06/05/21 12:02 06/05/21 12:05 Temperature Temperature Source Pulse Rate 77 Respiratory Rate 19 H Respiratory Effort Respiratory Pattern Blood Pressure 124/91 H 178/137 H 177/136 H Blood Pressure Mean 102 150 149 Pulse Ox 97 Oxygen Delivery Method Room Air Positive well nourished and well developed General Appearance ED: well developed HEENT normocephalic Eyes PERRL and EOMs intact bilaterally Neck supple Chest Wall inspection of chest normal and palpation of chest normal Resp normal respiratory effort Effort and Inspection: respiratory distress Cardio regular rhythm Rate: tachycardic GI soft to palpation and non-tender Extremity normal to inspection Neuro oriented x3 Sensorium / Orientation: awake and alert Psych mental status grossly normal Skin no rashes or lesions noted Heart Score History: Highly Suspicious ECG: Normal Age: </= 45 years Risk Factors: 1 or 2 Risk Factors Troponin: >/=3 x Normal Limit Score: 5 MDM MDM MDM Narrative Medical decision making narrative: Patient given aspirin on arrival. Patient given 10 mg of IV labetalol for blood pressure control. She was given morphine and Zofran for pain. Lab work, EKG, chest x-ray obtained. Lab Data Attestation: I reviewed the patient's lab results. Labs: Laboratory Results - last 24 hr 06/05/21 06/05/21 06/05/21 09:40 09:40 09:40 WBC Cancelled Corrected WBC Cancelled RBC Cancelled Hgb Cancelled Hct Cancelled MCV Cancelled MCH Cancelled MCHC Cancelled RDW Std Deviation Cancelled RDW Coeff of Ruby Cancelled Plt Count Cancelled MPV Cancelled Immature Gran % (Auto) Cancelled Neut % (Auto) Cancelled Lymph % (Auto) Cancelled [place] % (Auto) Cancelled Eos % (Auto) Cancelled Baso % (Auto) Cancelled Absolute Neuts (auto) Cancelled Absolute Lymphs (auto) Cancelled Total Counted Cancelled Neutrophils % (Manual) Cancelled Band Neutrophils % Cancelled Lymphocytes % (Manual) Cancelled Monocytes % (Manual) Cancelled Eosinophils % (Manual) Cancelled Basophils % (Manual) Cancelled Metamyelocytes % Cancelled Myelocytes % Cancelled Promyelocytes % Cancelled Blast Cells % Cancelled Plasma Cell % (Manual) Cancelled Other Cells % Cancelled Nucleated RBC % Cancelled Nucleated RBCs/100 WBC Cancelled Differential Comment Cancelled Diff Path Review Cancelled Hypersegmented Neuts Cancelled Atypical Lymphocytes Cancelled Reactive Lymphocytes Cancelled Smudge Cells Cancelled Toxic Granulation Cancelled Toxic Vacuolation Cancelled Dohle Bodies Cancelled Kimo Rods Cancelled Platelet Estimate Cancelled Plt Morphology Comment Cancelled RBC Morphology Cancelled Polychromasia Cancelled Hypochromasia Cancelled Poikilocytosis Cancelled Basophilic Stippling Cancelled Anisocytosis Cancelled Microcytosis Cancelled Macrocytosis Cancelled Spherocytes Cancelled Sickle Cells Cancelled Target Cells Cancelled Tear Drop Cells Cancelled Ovalocytes Cancelled Stomatocytes Cancelled [place] Bodies Cancelled Dotty Cells Cancelled Bite Cells Cancelled Crenated Cell Cancelled Acanthocytes (Spur) Cancelled Rouleaux Cancelled Schistocytes Cancelled Sodium 137 Potassium 3.8 Chloride 107 Carbon Dioxide 22.0 Anion Gap 8 BUN 10 Creatinine 0.90 Estim Creat Clear Calc 63.86 Est GFR (MDRD) Af Amer 92 Est GFR (MDRD) Non-Af 76 BUN/Creatinine Ratio 11.1 Glucose 99 Calcium 8.8 Troponin I High Sens 74741 H* Serum , Qual NEGATIVE 06/05/21 10:15 WBC 4.9 Corrected WBC RBC 4.14 L Hgb 10.5 L Hct 30.3 L MCV 73.2 L MCH 25.4 L MCHC 34.7 RDW Std Deviation 46.8 H RDW Coeff of Ruby 17.8 H Plt Count 348 MPV 9.5 Immature Gran % (Auto) 0.200 Neut % (Auto) 65.9 Lymph % (Auto) 27.4 [place] % (Auto) 5.1 Eos % (Auto) 0.8 Baso % (Auto) 0.6 Absolute Neuts (auto) 3.2 Absolute Lymphs (auto) 1.33 Total Counted Neutrophils % (Manual) Band Neutrophils % Lymphocytes % (Manual) Monocytes % (Manual) Eosinophils % (Manual) Basophils % (Manual) Metamyelocytes % Myelocytes % Promyelocytes % Blast Cells % Plasma Cell % (Manual) Other Cells % Nucleated RBC % 0 Nucleated RBCs/100 WBC Differential Comment Diff Path Review Hypersegmented Neuts Atypical Lymphocytes Reactive Lymphocytes Smudge Cells Toxic Granulation Toxic Vacuolation Dohle Bodies Kimo Rods Platelet Estimate Plt Morphology Comment RBC Morphology Polychromasia Hypochromasia Poikilocytosis Basophilic Stippling Anisocytosis Microcytosis Macrocytosis Spherocytes Sickle Cells Target Cells Tear Drop Cells Ovalocytes Stomatocytes [place] Bodies Dotty Cells Bite Cells Crenated Cell Acanthocytes (Spur) Rouleaux Schistocytes Sodium Potassium Chloride Carbon Dioxide Anion Gap BUN Creatinine Estim Creat Clear Calc Est GFR (MDRD) Af Amer Est GFR (MDRD) Non-Af BUN/Creatinine Ratio Glucose Calcium Troponin I High Sens Serum , Qual Radiography Chest X-Ray - ED: 1 View, Read by ED Physician and Cardiomegaly Diagnostic Testing: Clinical Impression(s) from Imaging Studies Chest X-Ray 06/05/21 09:59 IMPRESSION: No radiographic evidence of acute cardiopulmonary disease. No interval change. at 1018 Reported and signed by: Deric Bro MD Electronically Signed: Deric Bro MD at 10:17 EDT , Chest CTA 06/05/21 10:35 IMPRESSION: 1. No evidence of acute pulmonary embolism. 2. Pulmonary edema secondary to CHF/fluid overload. 3. Cardiomegaly with left ventricular hypertrophy. Individualized dose optimization techniques were used for this CT. at 1142 Reported and signed by: Deric Bro MD Electronically Signed: Deric Bro MD at 11:41 EDT , EKG Initial EKG: Attestation: I personally reviewed and interpreted this EKG as follows: Interpretation: Sinus Tachycardia (Sinus tach at 107. Nonspecific lateral T wave flattening with no acute ST change.) Treatment and Re-Evaluation Narrative: Chest x-ray per my interpretation reveals cardiomegaly with no focal infiltrate. Radial interpretation is reviewed and they do not believe there is any significant interval change. Lab work reveals normal renal function. Troponin is elevated at 12,488. On repeat evaluation patient is resting much more comfortably. Due to elevated blood pressure with pain pattern CTA of the chest was obtained to rule out dissection. This reveals evidence of mild pulmonary edema but no evidence of dissection or PE. Patient's blood pressure is currently 177/136, a 20% reduction over arrival. I did speak with cardiology. They asked the patient to be observed for repeat labs and echocardiogram. They did suggest starting losartan 50 mg twice daily, Norvasc 10 mg daily, Lopressor 50 mg twice daily. I will speak with hospitalist regarding admission. Discharge Plan Triage Chief Complaint: Chest Pain ED Provider: Kiesha Johnson Dx/Rx/DC Orders Clinical Impression: Hypertensive emergency, Elevated troponin Prescriptions: No Action NK RF: 0 Primary Care Provider: Care Physician,No Primary Referrals: Care Physician,No Primary [Primary Care Provider] - Disposition Disposition: Acute Care Hospital [facility]
[2021-06-05] MEDS: Aspirin 81 MG TAB.CHEW 324 MG PO (09:35)
[2021-06-05] MEDS: Ondansetron 4 MG/2 ML Vial IV (09:39)
[2021-06-05] MEDS: Morphine 4 MG/ML Syringe IV (09:40)
[2021-06-05] MEDS: Labetalol (Prefilled) 20 MG/4 ML 10 MG IV (09:47)
--- NOTE | 2021-06-05 09:55 | NURSING ---
CBCD IS CLOTTED
--- NOTE | 2021-06-05 09:59 | RAD_ITS ---
History: chest pain EXAMINATION/TECHNIQUE: XR Chest 1 View: Portable COMPARISON: April 14, 2019 FINDINGS: LINES/DEVICES: None. LUNGS: No consolidation, edema or effusion. No pneumothorax. MEDIASTINUM AND CARDIOVASCULAR STRUCTURES: Cardiac silhouette not enlarged. Central airways and mediastinal contour are unremarkable. BONES AND SOFT TISSUES: Unremarkable. RAD/Chest 1 View (Portable) IMPRESSION: No radiographic evidence of acute cardiopulmonary disease. No interval change. at 1018 Reported and signed by: Deric Bro MD Electronically Signed: Deric Bro MD at 10:17 EDT ,
[2021-06-05 10:06] LABS: Internal QC Validated? YES +Cl - CLEAR BKGD; Pregnancy, Serum, hCG Quali. NEGATIVE Negative
[2021-06-05 10:08] LABS: Anion Gap 8 (5-15); BUN 10 mg/dL (7-18); BUN/Creat Ratio 11.1 RATIO (10-20); Calcium,Total 8.8 mg/dL (8.5-10.1); Chloride 107 mmol/L (98-107); EST Glomerular Filtration Rate 76 mL/min (>60); Est Glom Filt Rate - Afr Amer 92 mL/min (>60); Estimated Creatinine Clearance 63.86 ml/min; Glucose 99 mg/dL (74-106); Potassium 3.8 mmol/L (3.5-5.1); Sodium Level 137 mmol/L (136-145); Troponin-I HS (w/2H Reflex) 12488 pg/mL (3.0-54.0)
[2021-06-05 10:26] LABS: Absolute Lymphocyte Count 1.33 X10^3/uL (0.83-4.51); Absolute Neutrophil Count 3.2 X10^3/uL (2.0-7.7); Basophil# 0.03 X10^3/uL; Basophil% 0.6 % (0-1); Eosinophil# 0.04 X10^3/uL; Eosinophils% 0.8 % (0-5); Hematocrit 30.3 % (37-47); Hemoglobin 10.5 g/dL (12.0-15.0); Lymphocyte # 1.33 X10^3/ul (0.83-4.51); Lymphocyte % 27.4 % (19-41); Mean Corp Hgb Conc 34.7 g/dL (32-36); Mean Corpuscular Hgb 25.4 pg (27.0-32.0); Mean Corpuscular Volume 73.2 fL (81-99); Mean Platelet Vol. 9.5 fl (6.2-12.0); Monocyte# 0.25 X10^3/uL; Monocyte% 5.1 % (0-10); NRBC Flagged by Analyzer 0 % (0-5); Neutrophil % 65.9 % (47-70); Platelet Count 348 K/mm3 (150-450); RBC Distribution Width CV 17.8 % (11.6-14.6); RBC Distribution Width SD 46.8 fl (35.1-43.9); Red Blood Count 4.14 M/mm3 (4.2-5.4); White Blood Count 4.9 K/mm3 (4.4-11.0)
--- NOTE | 2021-06-05 10:35 | CT_ITS ---
EXAM: CT ANGIOGRAPHY CHEST WITHOUT AND WITH INTRAVENOUS CONTRAST : 1985 CLINICAL INDICATION: cp, back pain, HTN TECHNIQUE: Helically acquired angiography images were obtained of the chest without and with intravenous contrast. This CT exam was performed using one or more of the following dose reduction techniques: automated exposure control, adjustment of the mA and/or kV according to patient size, and/or use of iterative reconstruction technique. This report was created using Dr[employer]4-[employer] report generation technology. MIP reconstructed images were created and reviewed. CONTRAST: IV 100mL [id number] COMPARISON: Chest radiograph June 05, 2021 FINDINGS: PULMONARY ARTERIES: Unremarkable. Normal in caliber. No evidence of pulmonary embolism. AORTA: Unremarkable. Normal in caliber. No evidence of dissection. GREAT VESSELS OF AORTIC ARCH: Unremarkable. Normal in caliber. No evidence of dissection. INFERIOR VENA CAVA: Contrast refluxes into distended inferior vena cava and hepatic veins indicating increased right-sided heart pressure. LUNGS AND PLEURAL SPACES: Minimal pleural effusion noted bilaterally. Mild thickening of the pulmonary interstitium consistent with mild pulmonary edema. No mass. No pneumothorax. HEART: Mild cardiomegaly with left ventricular hypertrophy. Minimal pericardial effusion. No coronary artery calcification. MEDIASTINUM: Unremarkable. No mediastinal or hilar adenopathy. Esophagus is unremarkable. No hiatal hernia. THYROID: Unremarkable. No thyroid lesions. BONES/JOINTS: Unremarkable. No suspicious lytic or blastic abnormality. CT/CTA Chest W/WO Contrast IMPRESSION: 1. No evidence of acute pulmonary embolism. 2. Pulmonary edema secondary to CHF/fluid overload. 3. Cardiomegaly with left ventricular hypertrophy. Individualized dose optimization techniques were used for this CT. at 1142 Reported and signed by: Deric Bro MD Electronically Signed: Deric Bro MD at 11:41 EDT ,
--- NOTE | 2021-06-05 12:53 | CM.ED ---
SW Note Referral Source: MD Referral Reason: Patient has four children 13, 11, 11, and 3 year old and patient needs admitted SW met with patient. Patient said that her 13 year old could watch the children over night and SW said that was not a good plan. Patient then said that her friend is bringing the 3 year old into the ED today and he will stay with her. SW explained that patient needs to care for herself and with a 3 year old it will be difficult for her to rest while the child is here. SW attempted to problem solve as to who could watch the children. Patient said that she is from [place]. Patient said that she has no siblings. Her father is in [place] and her mother recently. Patient said that her friend, Leia Larsen is watching her 3 year old but can't watch the older children as her is sick. Patient is a single mom. Patient said that she would ask Leia when they came to the hospital. SW met with Leia, patient's friend, and patient. Leia said she could care for the children while mother is in the hospital. Pauloemilylillie began to know patient through the [facility] and has been active in her life for 4 years. Leia said that she would keep the children and take them to school in the morning. Leia said that the children are good children. Leia identifies herself as patient's Godmother. and RN updated Elodia ARAGON
--- NOTE | 2021-06-05 13:12 | NURSING ---
DR BRYANT IN ER
[2021-06-05 13:26] LABS: Troponin-I HS 14091 pg/mL (3.0-54.0)
--- NOTE | 2021-06-05 13:26 | ED.RN ---
aware of high critical repeat troponin. no new orders at this time
--- NOTE | 2021-06-05 13:27 | NURSING ---
PCU [facility] HYPERTENSIVE EMERGENCY, ELEVATED TROP
--- NOTE | 2021-06-05 13:30 | CASEMGMT ---
MAVIS BUI Assessment: RN CM to room to meet with patient for initial transition planning/care coordination assessment. MAVIS BUI introduced self and role at [facility]. Patient voices understanding and consents to assessment at this time. No visitors present at bedside. Patient is alert and oriented and answers all questions appropriately. Patient sitting up on ER cart in no apparent distress. Care providers, pharmacy, and demographics verified/updated at this time. Admitting Dx: hypertensive emergency, elevated troponin PCP: No PCP. [facility] Healthcare Provider Directory provided to patient. Specialists: Denies Preferred Pharmacy: [email or web address] Insurance: [employer] Prescription Benefit: yes Living Will/HPOA: Patient denies having a living will or HPOA. LNOK: Father Jef Kaufman Living Arrangements: Patient is a single mother and lives with 4 children (ages 13 yo, 10 yo twins and 3 yo) in upstairs duplex apartment with 6 steps to enter the home. Patient states independent with ADLs prior to hospitalization. 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 Smoking/ETOH: Current smoker (1/2 ppd), denies ETOH use Transportation: Patient drives self and denies transportation concerns. DME/HHC/SNF: Patient denies having any DME in the home and denies need for DME at this time. Denies previous HHC or SNF stays. Patient has no concerns with going home at time of discharge. CM to follow for any discharge planning/needs. Patient voices no concerns/needs at this time. Advised patient to ask for CM if any questions/concerns/needs arise. Voices understanding. Plan: home
[2021-06-05 13:37] LABS: Amphetamine Urine VISTA NEGATIVE (<1000 ng/mL); Barbiturate Urine VISTA NEGATIVE (< 200 ng/mL); Benzodiazepine Urine VISTA NEGATIVE (< 200 ng/mL); Cocaine Urine VISTA NEGATIVE (< 300 ng/mL); Ecstacy Urine VISTA NEGATIVE (< 500 ng/mL); Methadone Urine VISTA NEGATIVE (< 300 ng/mL); PCP Urine VISTA NEGATIVE (< 25 ng/mL); THC Urine VISTA POSITIVE (< 50 ng/mL); Vista UDS pH Range 5
--- NOTE | 2021-06-05 14:40 | ECHOD_ITS ---
Reason For Study: CHEST PAIN Procedure This was a 2D Doppler, Color Flow transthoracic echocardiogram. Exam performed portable in patient room. Left Ventricle Moderately dilated left ventricle. The estimated ejection fraction is 35 %. Stage 2 diastolic dysfunction. There is moderate to severe global hypokinesis of the left ventricle. Right Ventricle Normal RV size. Normal systolic function. Atria Normal left atrium. Normal right atrium. Mitral Valve Normal mitral valve. Mild-Moderate (1-2+) eccentric mitral valve insufficiency. Tricuspid Valve Normal tricuspid valve. Mild to moderate (1-2+) tricuspid valve insufficiency. Pulmonary artery systolic pressure is 40 mmHg. Aortic Valve Trisinus/trileaflet aortic valve. Pulmonic Valve Normal pulmonic valve. Mild (1+) pulmonic valve insufficiency. Great Vessels Normal aortic root. The pulmonary artery is normal size. Normal inferior vena cava. Pericardium/Pleural No pericardial effusion. MMode/2D Measurements & Calculations LVIDd: 6.4 cm IVSd: 0.98 cm Ao root diam: 3.0 cm LVIDs: 5.5 cm LVPWd: 1.2 cm RVDd: 3.7 cm FS: 12.7 % LAV(MOD-bp): 50.1 ml LVAd ap4: 48.7 cm2 SV(MOD-sp4): 70.1 ml LAV(MOD-bp) Indexed: 25.7 ml/m2 LVLd ap4: 9.1 cm LAV(MOD-sp2): 48.4 ml EDV(MOD-sp4): 217.9 ml LAV(MOD-sp4): 50.6 ml EDV(sp4-el): 220.6 ml LVAs ap4: 37.7 cm2 LVLs ap4: 8.0 cm ESV(MOD-sp4): 147.8 ml ESV(sp4-el): 150.4 ml EF(MOD-sp4): 32.2 % EF(sp4-el): 31.8 % SV(sp4-el): 70.2 ml LA A4 area: 17.8 cm2 LA dimension(2D): 4.2 cm RA A4 area: 14.0 cm2 Time Measurements MV dec time: 0.14 sec Doppler Measurements & Calculations MV E max james: 114.7 cm/sec Lat Peak E' James: 6.0 cm/sec Med Peak E' James: 4.7 cm/sec MV A max james: 65.8 cm/sec E/E' lat: 19.1 E/E' med: 24.6 MV E/A: 1.7 Ao V2 max: 134.8 cm/sec LV V1 max: 82.2 cm/sec PA V2 max: 69.7 cm/sec Ao max P.3 mmHg LV V1 max P.7 mmHg TR max james: 300.1 cm/sec TR max P.0 mmHg ECHO/Echo Complete Interpretation Summary Moderately dilated left ventricle. The estimated ejection fraction is 35 %. Pulmonary artery systolic pressure is 40 mmHg. Stage 2 diastolic dysfunction. Mild-Moderate (1-2+) eccentric mitral valve insufficiency. Mild to moderate (1-2+) tricuspid valve insufficiency. Ordering Physician: Jhonny Rothman Performed By: Ely Prince RDCS
--- NOTE | 2021-06-05 14:45 | EKG12_ITS ---
Test Reason : AM EKG Blood Pressure : / mmHG Vent. Rate : 068 BPM Atrial Rate : 068 BPM P-R Int : 158 ms QRS Dur : 098 ms QT Int : 428 ms P-R-T Axes : 031 007 169 degrees QTc Int : 455 ms Normal sinus rhythm T wave abnormality, consider lateral ischemia Abnormal ECG Confirmed by JOCELYN GILLIS, AKSHAT ([id number]), society editor MONET CARROLL ([id number]) on 06/08/2021 10:13:10 AM Referred By: DR BRYANT Confirmed By:AKSHAT BANKS MD
[2021-06-05 15:15] LABS: BNP,B-Type NATRIURETIC PEPTIDE 1110.4 pg/mL (0-100)
--- NOTE | 2021-06-05 16:16 | HP.PCM.HOS_ITS ---
HPI - General General Date of Admission: 06/05/21 Date of Service: 06/05/21 Chief Complaint: Chest pain HPI Narrative STARR HURLEY, is a 35 F who presents to the emergency room at [facility] with complaints of chest discomfort that has been going on for the last week, she describes the chest discomfort as a tightness, also she describes it as being sharp and located in the mid chest area. She also states that the dis comfort goes down her arms and into her lower back. Patient denies any nausea or vomiting or diaphoresis. Patient has been complaining of intermittent shortness of breath on exertion. Patient was diagnosed as having hypertension 3 to 4 years ago when she was , unfortunately, she did not continue taking her blood pressure medications as directed has not been on any blood pressure medication for several years. Work-up in the emergency room included an EKG which showed normal sinus rhythm without evidence of ischemia, patient has CT of her chest performed which showed pulmonary edema, no evidence of any emboli were noted. Patient's blood pressure was very elevated (initial blood pressure was 212/161), lab work was obtained,- CBC showed a hemoglobin of 10.5 with normal white blood cell count, her chemistry profile was unremarkable, and her troponin was elevated at 14,091, beta natruretic peptide was elevated at 1110. Patient was given IV Trandate in the emergency room for her hypertension, cardiology was contacted and the case was discussed with cardiology by the emergency room physician. Patient will be admitted to PCU for non-STEMI, acute CHF, and hypertensive emergency, she will be placed on a beta-giselle, and ARB, IV Lasix, and a calcium channel giselle. She will get an echocardiogram performed and see cardiology in consultation. Patient may need to undergo heart catheterization-I discussed this briefly with her-depending on the results of her echocardiogram. Further note: Patient had a tox screen performed in the ER which was positive for opiates and cannabinoids, patient denies to the nurses in the emergency room that she uses outpatient opiates-it appears that her urine sample for toxicology was not obtained until early this afternoon, by that time she had had a dose of morphine in the emergency room that was given to her when she was first admitted earlier this morning to the ER. I feel this is why her tox screen is positive for opiates. [facility] Medical History Anxiety Hypertension Home Medications NK 06/05/21 [History Last Taken Unknown] Allergy/AdvReac Type Severity Reaction Status Date / Time hydrocodone bitartrate Allergy Hives Verified 06/05/21 09:17 [From Vicodin] meperidine HCl [From Demerol] Allergy Hives Verified 06/05/21 09:17 Family History (Updated 06/05/21 @ 14:35 by Kiesha Leahy) Mother Breast cancer Hypertension Diabetes Heart disease Social History Smoking Status: Current every day smoker tobacco type: cigarettes ROS Constitutional Constitutional: Denies anorexia, change in weight, fever(s), night sweats or weakness Eyes Eyes: Denies blurry vision, change in vision, discharge from eye(s) or eye pain Cardiovascular Cardiovascular: Reports chest pain and dyspnea on exertion; Denies claudication, edema or palpitations Respiratory/Chest Respiratory/Chest: Denies cough, hemoptysis, shortness of breath at rest or shortness of breath with exertion Gastrointestinal Gastrointestinal: Denies abdominal pain, constipation, diarrhea, hematemesis, hematochezia, melena, nausea or vomiting Genitourinary Genitourinary: Denies dysuria, hematuria, urinary frequency, urinary hesitancy, urinary incontinence or urinary urgency Musculoskeletal Musculoskeletal: Reports back pain; Denies joint pain, joint stiffness, joint swelling, myalgias or neck pain Neurologic Neurologic: Denies abnormal gait, abnormal speech, dizziness, focal weakness, headache(s), loss of vision, numbness, other visual disturbances, paresthesias, syncope or tingling Psychiatric Psychiatric: Denies anxiety, cognitive impairment, depression, irritability, mood swings or suicidal ideation Endocrine Endocrinology: Denies change in body appearance, cold intolerance, excessive sweating, heat intolerance, polydipsia or polyuria Hematologic/Lymphatic Hematologic/Lymphatic: Denies none, anemia, easy bleeding, easy bruising or lymphadenopathy Allergic/Immunologic Allergic/Immunologic: Denies rhinitis, urticaria, eczemia or asthma Vital Signs Vital Signs Vital Signs: 06/05/21 09:13 06/05/21 09:19 06/05/21 09:23 Temperature 98.5 F Temperature Source Oral Pulse Rate 112 H 119 H Respiratory Rate 24 H 20 H Respiratory Effort Normal Non-Labored Respiratory Pattern Tachypnea Blood Pressure 212/161 H 212/161 H Blood Pressure Mean 178 178 Blood Pressure Source Blood Pressure Position Blood Pressure Location Pulse Ox 100 99 Oxygen Delivery Method Room Air Room Air Room Air Oxygen Flow Rate (L/min) 06/05/21 09:32 06/05/21 09:45 06/05/21 10:13 Temperature Temperature Source Pulse Rate 97 97 Respiratory Rate 20 H 16 Respiratory Effort Respiratory Pattern Blood Pressure 195/152 H 195/141 H 175/137 H Blood Pressure Mean 166 159 149 Blood Pressure Source Blood Pressure Position Blood Pressure Location Pulse Ox 100 95 Oxygen Delivery Method Room Air Room Air Oxygen Flow Rate (L/min) 06/05/21 11:15 06/05/21 12:02 06/05/21 12:05 Temperature Temperature Source Pulse Rate 77 Respiratory Rate 19 H Respiratory Effort Respiratory Pattern Blood Pressure 124/91 H 178/137 H 177/136 H Blood Pressure Mean 102 150 149 Blood Pressure Source Blood Pressure Position Blood Pressure Location Pulse Ox 97 Oxygen Delivery Method Room Air Oxygen Flow Rate (L/min) 06/05/21 13:00 06/05/21 14:10 06/05/21 14:26 Temperature 97.3 F L 98.1 F Temperature Source Temporal Oral Pulse Rate 90 80 80 Respiratory Rate 24 H 20 H 16 Respiratory Effort Respiratory Pattern Blood Pressure 156/119 H 154/110 H 177/137 H Blood Pressure Mean 131 124 150 Blood Pressure Source Monitor Blood Pressure Position Sitting Blood Pressure Location Left Arm Pulse Ox 99 97 100 Oxygen Delivery Method Nasal Cannula Nasal Cannula Nasal Cannula Oxygen Flow Rate (L/min) 2 2 2 06/05/21 15:00 Temperature Temperature Source Pulse Rate 77 Respiratory Rate Respiratory Effort Respiratory Pattern Blood Pressure Blood Pressure Mean Blood Pressure Source Blood Pressure Position Blood Pressure Location Pulse Ox Oxygen Delivery Method Oxygen Flow Rate (L/min) Weight Weight: 100.7 kg Body Mass Index (BMI) 43.3 Physical Exam Const alert, oriented x3, no apparent distress and healthy appearing General Appearance: cooperative, well kempt and well developed Orientation / Consciousness: awake, oriented to person, oriented to place and oriented to time HEENT normocephalic and moist oral mucous membranes Eyes PERRL, EOMs intact bilaterally and conjunctivae normal Neck nuchal rigidity, supple, no JVD, thyroid normal and no carotid bruits General: trachea midline Resp normal respiratory effort and clear to auscultation bilaterally Auscultation: Negative for rales, rhonchi or wheezes Cardio regular rate, regular rhythm, S1 normal heart sound, S2 normal heart sound, no murmurs, no rub, no gallops, no clicks and no JVD GI normal to inspection, nondistended, normoactive bowel sounds, soft to palpation, non-tender and non-distended Extremity no clubbing, cyanosis or edema Skin no rashes or lesions noted, no wounds and skin turgor normal General Skin Exam: no breakdown Neuro oriented x3, CN's II-XII intact bilaterally, no focal motor deficits and no sensory deficits noted Sensorium / Orientation: awake and alert Speech: speech normal Psych affect normal Results Lab / Micro Data Result Diagrams: 06/05/21 10:15 06/05/21 09:40 Labs: Laboratory Results - last 24 hr 06/05/21 09:40: Serum , Qual NEGATIVE 06/05/21 09:40: WBC Cancelled, Corrected WBC Cancelled, RBC Cancelled, Hgb Cancelled, Hct Cancelled, MCV Cancelled, MCH Cancelled, MCHC Cancelled, RDW Std Deviation Cancelled, RDW Coeff of Ruby Cancelled, Plt Count Cancelled, MPV Cancelled, Immature Gran % (Auto) Cancelled, Neut % (Auto) Cancelled, Lymph % (Auto) Cancelled, [place] % (Auto) Cancelled, Eos % (Auto) Cancelled, Baso % (Auto) Cancelled, Absolute Neuts (auto) Cancelled, Absolute Lymphs (auto) Cancelled, Total Counted Cancelled, Neutrophils % (Manual) Cancelled, Band Neutrophils % Cancelled, Lymphocytes % (Manual) Cancelled, Monocytes % (Manual) Cancelled, Eosinophils % (Manual) Cancelled, Basophils % (Manual) Cancelled, Metamyelocytes % Cancelled, Myelocytes % Cancelled, Promyelocytes % Cancelled, Blast Cells % Cancelled, Plasma Cell % (Manual) Cancelled, Other Cells % Cancelled, Nucleated RBC % Cancelled, Nucleated RBCs/100 WBC Cancelled, Differential Comment Cancelled, Diff Path Review Cancelled, Hypersegmented Neuts Cancelled, Atypical Lymphocytes Cancelled, Reactive Lymphocytes Cancelled, Smudge Cells Cancelled, Toxic Granulation Cancelled, Toxic Vacuolation Cancelled, Dohle Bodies Cancelled, Kimo Rods Cancelled, Platelet Estimate Cancelled, Plt Morphology Comment Cancelled, RBC Morphology Cancelled, Polychromasia Cancelled, Hypochromasia Cancelled, Poikilocytosis Cancelled, Basophilic Stippling Cancelled, Anisocytosis Cancelled, Microcytosis Cancelled, Macrocytosis Cancelled, Spherocytes Cancelled, Sickle Cells Cancelled, Target Cells Cancelled, Tear Drop Cells Cancelled, Ovalocytes Cancelled, Stomatocytes Cancelled, [place] Bodies Cancelled, Dotty Cells Cancelled, Bite Cells Canc elled, Crenated Cell Cancelled, Acanthocytes (Spur) Cancelled, Rouleaux Cancelled, Schistocytes Cancelled 06/05/21 09:40: Sodium 137, Potassium 3.8, Chloride 107, Carbon Dioxide 22.0, Anion Gap 8, BUN 10, Creatinine 0.90, Estim Creat Clear Calc 63.86, Est GFR (MDRD) Af Amer 92, Est GFR (MDRD) Non-Af 76, BUN/Creatinine Ratio 11.1, Glucose 99, Calcium 8.8, Troponin I High Sens 13054 H* 06/05/21 10:15: WBC 4.9, RBC 4.14 L, Hgb 10.5 L, Hct 30.3 L, MCV 73.2 L, MCH 25.4 L, MCHC 34.7, RDW Std Deviation 46.8 H, RDW Coeff of Ruby 17.8 H, Plt Count 348, MPV 9.5, Immature Gran % (Auto) 0.200, Neut % (Auto) 65.9, Lymph % (Auto) 27.4, [place] % (Auto) 5.1, Eos % (Auto) 0.8, Baso % (Auto) 0.6, Absolute Neuts (auto) 3.2, Absolute Lymphs (auto) 1.33, Nucleated RBC % 0 06/05/21 10:15: B-Natriuretic Peptide 1110.4 H 06/05/21 12:50: Troponin I High Sens [id number] H* 06/05/21 13:15: Urine Opiates Screen POSITIVE H, Urine Methadone Screen NEGATIVE , Ur Barbiturates Screen NEGATIVE, Ur Phencyclidine Scrn NEGATIVE, Ur Amphetamines Screen NEGATIVE, MDMA (Ecstasy) Screen NEGATIVE, U Benzodiazepines Scrn NEGATIVE, Urine Cocaine Screen NEGATIVE, U Cannabinoids Screen POSITIVE H, Ur Drug Screen Comment Radiology Impression Chest X-Ray 06/05/21 09:59 IMPRESSION: No radiographic evidence of acute cardiopulmonary disease. No interval change. at 1018 Reported and signed by: Deric Bro MD Electronically Signed: Deric Bro MD at 10:17 EDT , Chest CTA 06/05/21 10:35 IMPRESSION: 1. No evidence of acute pulmonary embolism. 2. Pulmonary edema secondary to CHF/fluid overload. 3. Cardiomegaly with left ventricular hypertrophy. Individualized dose optimization techniques were used for this CT. at 1142 Reported and signed by: Deric Bro MD Electronically Signed: Deric Bro MD at 11:41 EDT , Assessment & Plan Assessment/Plan (1) Hypertensive emergency: PLAN: 1. [id number] will be admitted to PCU, cardiac enzymes will be cycled, she will be placed on 81 mg aspirin daily, metoprolol, Norvasc, losartan, and receive IV Lasix. She will be seen in consultation by cardiology and undergo an echocardiogram. Further testing may be indicated such as a heart catheterization. #2 hypertensive emergency-patient's blood pressure will be aggressively treated, she was placed on IV Lasix due to congestive heart failure. She will remain on her other medications as listed above. #3 congestive heart failure-type unknown-patient will be given IV Lasix, again she was placed on losartan and metoprolol #4 noncompliance with medical regimen-patient was reminded that she needs to be diligent about taking her blood pressure medications, she understands this and understands that she would be at risk for stroke or similar bad outcome if she does not take her medications. #5+ opiates on tox screen-according to nursing in the emergency room, patient was given IV morphine initially when she was admitted to the ER, several hours l ater urine was collected for tox screen, I think that this is why the patient's tox screen is positive for opiates. Patient denies any outpatient use of opiates per nursing in the ER. Charges/Coding Visit Charges Inpatient E&M: 99049 Init Hosp L3
[2021-06-05] MEDS: Losartan Potassium 100 MG Tablet PO (16:35)
[2021-06-05] MEDS: Furosemide 20 MG/2 ML VIAL IV ×2 (16:35→18:07)
[2021-06-05] MEDS: amLODIPine 5 MG Tablet PO (16:35)
[2021-06-05] MEDS: Metoprolol Tartrate 50 MG Tablet PO ×2 (16:35→22:03)
[2021-06-05] MEDS: 0.9% Saline Lock 10 ML Syringe IV ×2 (16:36→18:07)
[2021-06-05 16:53] LABS: Troponin-I HS 9090 pg/mL (3.0-54.0)
--- NOTE | 2021-06-05 18:52 | PCM.CONS.C ---
Assessment & Plan Assessment/Plan (1) Hypertensive emergency: PLAN: She presents with severe hypertension with evidence of cardiac enzyme elevation. Her blood pressure was initially treated with intravenous labetalol. She is currently being treated with oral beta-giselle with Lopressor 50 mg twice a day Losartan 50 mg twice a day Amlodipine 10 mg a day These medications will be reviewed in the next 24 to 48 hours. (2) Elevated troponin: PLAN: She does have significant cardiac enzyme elevation. It is likely that the above is a type II event due to the severe hypertension. However it may be prudent at that level to obtain and perform a cardiac catheterization to exclude any obstructive coronary disease. A CT scan has been performed which has excluded pulmonary embolism. (3) Cardiomyopathy: PLAN: She does have evidence of a cardiomyopathy which is likely on the basis of hypertensive heart disease. We will start guideline directed medical therapy. (4) CHF (NYHA class III, ACC/AHA stage C): PLAN: She does have evidence of congestive heart failure [place] Association class III with reduced ejection fraction. We will start the beta-giselle and titrate upwards Continue TYSON inhibitor for now which can later be switched to Entresto IV diuretics with Lasix Thank you for allowing me to participate in the care of your patient. Please don't hesitate to call if any issues arise. HPI Consult Data Date of Consult: 06/05/21 HPI Narrative HPI Narrative: STARR HURLEY, is a 35 F who presents to the emergency room with complaints of chest discomfort described as a heaviness and a tightness as well as sharp chest discomfort located in the mid chest area. She also said that the discomfort goes down her arms into her lower back. She denied any nausea vomiting or diaphoresis. She has been having intermittent shortness of breath with exertion. She had been diagnosed with hypertension a few years ago when she was however she did not continue taking her blood pressure medications. She says that she has not seen a physician for many years. She presented to the emergency room and an EKG was done which was noted to be normal. Due to the chest discomfort she underwent a CAT scan which showed mild pulmonary edema. Her blood pressure however was noted to be very elevated at 212 161 she was given intravenous labetalol. I was then called and discussed her case with the emergency room physician and medication regimen was given which was optimized. She currently is not having any chest discomfort. Cardiac enzymes demonstrated a troponin of over 14,000. She had an echocardiogram done which demonstrated global reduction in left ventricular systolic function with an estimated ejection fraction of approximately 35%. The ventricle was mildly dilated. [facility] Medical History Anxiety Hypertension Smoker Home Medications NK 06/05/21 [History Last Taken Unknown] Allergy/AdvReac Type Severity Reaction Status Date / Time hydrocodone bitartrate Allergy Hives Verified 06/05/21 09:17 [From Vicodin] meperidine HCl [From Demerol] Allergy Hives Verified 06/05/21 09:17 Family History Mother Breast cancer Hypertension Diabetes Heart disease Social History Smoking Status: Current every day smoker tobacco type: cigarettes ROS Constitutional Constitutional: Denies fever(s) or weight loss Eyes Eyes: Reports systems reviewed and no addt'l complaints, except as documented ENT HEENT: Reports systems reviewed and no addt'l complaints, except as documented Cardiovascular Cardiovascular: Reports chest pain at rest, chest pain with activity, dyspnea at rest and dyspnea on exertion; Denies edema, palpitations or paroxysmal nocturnal dyspnea Respiratory/Chest Respiratory/Chest: Denies dyspnea on exertion, productive cough, shortness of breath at rest or shortness of breath with exertion Gastrointestinal Gastrointestinal: Denies change in bowel habits, nausea, vomiting or weight changes Genitourinary Genitourinary: Denies difficulty urinating Musculoskeletal Musculoskeletal: Denies joint stiffness or muscle weakness Integumentary Integumentary: Denies lesions Neurologic Neurologic: Denies dizziness or syncope Psychiatric Psychiatric: Denies anxiety Endocrine Endocrinology: Denies excessive sweating or fatigue Hematologic/Lymphatic Hematologic/Lymphatic: Denies anemia Allergic/Immunologic Allergic/Immunologic: Denies seasonal rhinorrhea Physical Exam Const alert, oriented x3 and no apparent distress General Appearance: cooperative HEENT hearing grossly normal bilaterally Head and Scalp: atraumatic Eyes EOMs intact bilaterally Neck General: normal visual inspection Chest inspection of chest normal and palpation of chest normal Resp normal respiratory effort Auscultation: clear to auscultation bilaterally Cardio regular rate, regular rhythm, S1 normal heart sound and S2 normal heart sound Jugular Venous Distention: JVD Heart Sounds: abnormal sounds GI normal to inspection, nondistended, normoactive bowel sounds Extremity normal capillary refill and no pedal edema Peripheral Pulses: Yes pulses 2+ throughout and femoral pulses present Skin no rashes or lesions noted Neuro oriented x3 and CN's II-XII intact bilaterally Psych Appearance: grossly normal and appropriate Risk Stratification Risk Stratification Applicable: No Objective Data Vital Signs: Vital Signs Temp Pulse Resp BP Pulse Ox 97.7 F L 76 18 152/117 H 97 06/05/21 17:35 06/05/21 17:35 06/05/21 17:35 06/05/21 17:35 06/05/21 17:35 Oxygen Flow Rate (L/min) 2 Oxygen Delivery Method Room Air Weight: 222 lb 0.088 oz Body Mass Index (BMI) 43.3 Intake & Output: Intake and Output for Last 24 Hours 06/03/21 06/04/21 06/05/21 22:59 23:59 23:59 Intake Total 360 / 360 Balance 360 / 360 Lab / Micro Data Result Diagrams: 06/05/21 10:15 06/05/21 09:40 Labs: Laboratory Results - last 24 hr 06/05/21 09:40: Serum , Qual NEGATIVE 06/05/21 09:40: WBC Cancelled, Corrected WBC Cancelled, RBC Cancelled, Hgb Cancelled, Hct Cancelled, MCV Cancelled, MCH Cancelled, MCHC Cancelled, RDW Std Deviation Cancelled, RDW Coeff of Ruby Cancelled, Plt Count Cancelled, MPV Cancelled, Immature Gran % (Auto) Cancelled, Neut % (Auto) Cancelled, Lymph % (Auto) Cancelled, [place] % (Auto) Cancelled, Eos % (Auto) Cancelled, Baso % (Auto) Cancelled, Absolute Neuts (auto) Cancelled, Absolute Lymphs (auto) Cancelled, Total Counted Cancelled, Neutrophils % (Manual) Cancelled, Band Neutrophils % Cancelled, Lymphocytes % (Manual) Cancelled, Monocytes % (Manual) Cancelled, Eosinophils % (Manual) Cancelled, Basophils % (Manual) Cancelled, Metamyelocytes % Cancelled, Myelocytes % Cancelled, Promyelocytes % Cancelled, Blast Cells % Cancelled, Plasma Cell % (Manual) Cancelled, Other Cells % Cancelled, Nucleated RBC % Cancelled, Nucleated RBCs/100 WBC Cancelled, Differential Comment Cancelled, Diff Path Review Cancelled, Hypersegmented Neuts Cancelled, Atypical Lymphocytes Cancelled, Reactive Lymphocytes Cancelled, Smudge Cells Cancelled, Toxic Granulation Cancelled, Toxic Vacuolation Cancelled, Dohle Bodies Cancelled, Kimo Rods Cancelled, Platelet Estimate Cancelled, Plt Morphology Comment Cancelled, RBC Morphology Cancelled, Polychromasia Cancelled, Hypochromasia Cancelled, Poikilocytosis Cancelled, Basophilic Stippling Cancelled, Anisocytosis Cancelled, Microcytosis Cancelled, Macrocytosis Cancelled, Spherocytes Cancelled, Sickle Cells Cancelled, Target Cells Cancelled, Tear Drop Cells Cancelled, Ovalocytes Cancelled, Stomatocytes Cancelled, [place] Bodies Cancelled, [place] [employer] Cells Cancelled, Bite Cells Cancelled, Crenated Cell Cancelled, Acanthocytes (Spur) Cancelled, Rouleaux Cancelled, Schistocytes Cancelled 06/05/21 09:40: Sodium 137, Potassium 3.8, Chloride 107, Carbon Dioxide 22.0, Anion Gap 8, BUN 10, Creatinine 0.90, Estim Creat Clear Calc 63.86, Est GFR (MDRD) Af Amer 92, Est GFR (MDRD) Non-Af 76, BUN/Creatinine Ratio 11.1, Glucose 99, Calcium 8.8, Troponin I High Sens 28719 H* 06/05/21 10:15: WBC 4.9, RBC 4.14 L, Hgb 10.5 L, Hct 30.3 L, MCV 73.2 L, MCH 25.4 L, MCHC 34.7, RDW Std Deviation 46.8 H, RDW Coeff of Ruby 17.8 H, Plt Count 348, MPV 9.5, Immature Gran % (Auto) 0.200, Neut % (Auto) 65.9, Lymph % (Auto) 27.4, [place] % (Auto) 5.1, Eos % (Auto) 0.8, Baso % (Auto) 0.6, Absolute Neuts (auto) 3.2, Absolute Lymphs (auto) 1.33, Nucleated RBC % 0 06/05/21 10:15: B-Natriuretic Peptide 1110.4 H 06/05/21 12:50: Troponin I High Sens 56540 H* 06/05/21 13:15: Urine Opiates Screen POSITIVE H, Urine Methadone Screen NEGATIVE, Ur Barbiturates Screen NEGATIVE, Ur Phencyclidine Scrn NEGATIVE, Ur Amphetamines Screen NEGATIVE, MDMA (Ecstasy) Screen NEGATIVE, U Benzodiazepines Scrn NEGATIVE, Urine Cocaine Screen NEGATIVE, U Cannabinoids Screen POSITIVE H, Ur Drug Screen Comment 06/05/21 16:04: Troponin I High Sens 9090 H* Cardiology Labs/Tests 06/05/21 09:40: WBC Cancelled, Corrected WBC Cancelled, RBC Cancelled, Hgb Cancelled, Hct Cancelled, MCV Cancelled, MCH Cancelled, MCHC Cancelled, Plt Count Cancelled, MPV Cancelled, Immature Gran % (Auto) Cancelled, Neut % (Auto) Cancelled, Lymph % (Auto) Cancelled, [place] % (Auto) Cancelled, Eos % (Auto) Cancelled, Baso % (Auto) Cancelled, Absolute Neuts (auto) Cancelled, Total Counted Cancelled, Neutrophils % (Manual) Cancelled, Band Neutrophils % Cancelled, Lymphocytes % (Manual) Cancelled, Monocytes % (Manual) Cancelled, Eosinophils % (Manual) Cancelled, Basophils % (Manual) Cancelled, Metamyelocytes % Cancelled, Myelocytes % Cancelled, Promyelocytes % Cancelled, Blast Cells % Cancelled, Plasma Cell % (Manual) Cancelled, Other Cells % Cancelled, Nucleated RBC % Cancelled 06/05/21 09:40: Sodium 137, Potassium 3.8, Chloride 107, Carbon Dioxide 22.0, Anion Gap 8, BUN 10, Creatinine 0.90, Est GFR (MDRD) Af Amer 92, Est GFR (MDRD) Non-Af 76, BUN/Creatinine Ratio 11.1, Glucose 99, Calcium 8.8 06/05/21 10:15: WBC 4.9, RBC 4.14 L, Hgb 10.5 L, Hct 30.3 L, MCV 73.2 L, MCH 25.4 L, MCHC 34.7, Plt Count 348, MPV 9.5, Immature Gran % (Auto) 0.200, Neut % (Auto) 65.9, Lymph % (Auto) 27.4, [place] % (Auto) 5.1, Eos % (Auto) 0.8, Baso % (Auto) 0.6, Absolute Neuts (auto) 3.2, Nucleated RBC % 0 06/05/21 10:15: B-Natriuretic Peptide 1110.4 H Rhythm: EKG: ECHO: Stress Test: Cardiac Cath: PCI: CT Surgery: Holter monitor: EPS: PPM: CXR: Chest CT Scan: Radiography Diagnostic Testing: Radiology Impression Chest X-Ray 06/05/21 09:59 IMPRESSION: No radiographic evidence of acute cardiopulmonary disease. No interval change. at 1018 Reported and signed by: Deric Bro MD Electronically Signed: Deric Bro MD at 10:17 EDT , Chest CTA 06/05/21 10:35 IMPRESSION: 1. No evidence of acute pulmonary embolism. 2. Pulmonary edema secondary to CHF/fluid overload. 3. Cardiomegaly with left ventricular hypertrophy. Individualized dose optimization techniques were used for this CT. at 1142 Reported and signed by: Deric Bro MD Electronically Signed: Deric Bro MD at 11:41 EDT , Echocardiogram 06/05/21 14:40 Interpretation Summary Moderately dilated left ventricle. The estimated ejection fraction is 35 %. Pulmonary artery systolic pressure is 40 mmHg. Stage 2 diastolic dysfunction. Mild-Moderate (1-2+) eccentric mitral valve insufficiency. Mild to moderate (1-2+) tricuspid valve insufficiency. Ordering Physician: Jhonny Rothman Performed By: Ely Prince RDCS
[2021-06-06] VITALS (12 sets, daily range): BP systolic 136–153; BP diastolic 99–118; PULSE 66–93; RESP 16–18; TEMP 36.7–36.9; O2SAT 95–100
[2021-06-06 05:54] LABS: Anion Gap 5 (5-15); BUN 13 mg/dL (7-18); BUN/Creat Ratio 13.8 RATIO (10-20); Calcium,Total 8.8 mg/dL (8.5-10.1); Chloride 107 mmol/L (98-107); Cholesterol 144 mg/dL (200); Creatinine, Serum 0.94 mg/dL (0.55-1.02); EST Glomerular Filtration Rate 72 mL/min (>60); Est Glom Filt Rate - Afr Amer 88 mL/min (>60); Estimated Creatinine Clearance 61.14 ml/min; Glucose 93 mg/dL (74-106); High Density Lipoprotein 47 mg/dL; Magnesium 2.3 mg/dL (1.6-2.6); Potassium 3.8 mmol/L (3.5-5.1); Sodium Level 137 mmol/L (136-145); Triglycerides 60 mg/dL; Very Low Density Lipoprotein 12 mg/dL (5-40)
--- NOTE | 2021-06-06 05:55 | EKG12_ITS ---
Test Reason : CP ADMIN Blood Pressure : / mmHG Vent. Rate : 084 BPM Atrial Rate : 084 BPM P-R Int : 154 ms QRS Dur : 092 ms QT Int : 414 ms P-R-T Axes : 032 033 030 degrees QTc Int : 489 ms Normal sinus rhythm Nonspecific T wave abnormality Abnormal ECG Confirmed by JOCELYN GILLIS, AKSHAT ([id number]), video news editor MONET CARROLL ([id number]) on 06/08/2021 10:14:05 AM Referred By: MANNY Confirmed By:AKSHAT BANKS MD
[2021-06-06] MEDS: amLODIPine 5 MG Tablet PO ×2 (06:38→08:19)
[2021-06-06] MEDS: Losartan Potassium 100 MG Tablet PO (06:38)
[2021-06-06] MEDS: Aspirin E.C. 81 MG Tablet PO (06:38)
[2021-06-06] MEDS: Metoprolol Tartrate 50 MG Tablet PO (06:38)
[2021-06-06] MEDS: 0.9% Saline Lock 10 ML Syringe IV (06:39)
--- NOTE | 2021-06-06 07:56 | PN.CARD_ITS ---
Subjective Subjective Patient seen and had. Underwent cardiac catheterization today. Objective Data Vital Signs: Vital Signs Temp Pulse Resp BP Pulse Ox 98.0 F 93 16 153/118 H 100 06/06/21 06:36 06/06/21 07:00 06/06/21 06:36 06/06/21 06:36 06/06/21 06:36 Oxygen Flow Rate (L/min) 2 Oxygen Delivery Method Room Air Weight: 222 lb 0.088 oz Body Mass Index (BMI) 43.3 Intake & Output: Intake and Output for Last 24 Hours 06/04/21 06/05/21 06/06/21 23:59 23:59 23:59 Intake Total 560 / 560 0 / 0 Balance 560 / 560 0 / 0 Lab / Micro Data Result Diagrams: 06/05/21 10:15 06/06/21 04:49 Labs: Laboratory Results - last 24 hr 06/05/21 09:40: Serum , Qual NEGATIVE 06/05/21 09:40: WBC Cancelled, Corrected WBC Cancelled, RBC Cancelled, Hgb Cancelled, Hct Cancelled, MCV Cancelled, MCH Cancelled, MCHC Cancelled, RDW Std Deviation Cancelled, RDW Coeff of Ruby Cancelled, Plt Count Cancelled, MPV Cancelled, Immature Gran % (Auto) Cancelled, Neut % (Auto) Cancelled, Lymph % (Auto) Cancelled, [place] % (Auto) Cancelled, Eos % (Auto) Cancelled, Baso % (Auto) Cancelled, Absolute Neuts (auto) Cancelled, Absolute Lymphs (auto) Cancelled, Total Counted Cancelled, Neutrophils % (Manual) Cancelled, Band Neutrophils % Cancelled, Lymphocytes % (Manual) Cancelled, Monocytes % (Manual) Cancelled, Eosinophils % (Manual) Cancelled, Basophils % (Manual) Cancelled, Metamyelocytes % Cancelled, Myelocytes % Cancelled, Promyelocytes % Cancelled, Blast Cells % Cancelled, Plasma Cell % (Manual) Cancelled, Other Cells % Cancelled, Nucleated RBC % Cancelled, Nucleated RBCs/100 WBC Cancelled, Differential Comment Cancelled, Diff Path Review Cancelled, Hypersegmented Neuts Cancelled, Atypical Lymphocytes Cancelled, Reactive Lymphocytes Cancelled, Smudge Cells Cancelled, Toxic Granulation Cancelled, Toxic Vacuolation Cancelled, Dohle Bodies Cancelled, Kimo Rods Cancelled, Platelet Estimate Cancelled, Plt Morphology Comment Cancelled, RBC Morphology Cancelled, Polychromasia Cancelled, Hypochromasia Cancelled, Poikilocytosis Cancelled, Basophilic Stippling Cancelled, Anisocytosis Cancelled, Microcytosis Cancelled, Macrocytosis Cancelled, Spherocytes Cancelled, Sickle Cells Cancelled, Target Cells Cancelled, Tear Drop Cells Cancelled, Ovalocytes Cancelled, Stomatocytes Cancelled, [place] Bodies Cancelled, [place] Cells Cancelled, Bite Cells Cancelled, Crenated Cell Cancelled, Acanthocytes (Spur) Cancelled, Rouleaux Cancelled, Schistocytes Cancelled 06/05/21 09:40: Sodium 137, Potassium 3.8, Chloride 107, Carbon Dioxide 22.0, Anion Gap 8, BUN 10, Creatinine 0.90, Estim Creat Clear Calc 63.86, Est GFR (MDRD) Af Amer 92, Est GFR (MDRD) Non-Af 76, BUN/Creatinine Ratio 11.1, Glucose 99, Calcium 8.8, Troponin I High Sens 21926 H* 06/05/21 10:15: WBC 4.9, RBC 4.14 L, Hgb 10.5 L, Hct 30.3 L, MCV 73.2 L, MCH 25.4 L, MCHC 34.7, RDW Std Deviation 46.8 H, RDW Coeff of Ruby 17.8 H, Plt Count 348, MPV 9.5, Immature Gran % (Auto) 0.200, Neut % (Auto) 65.9, Lymph % (Auto) 27.4, [place] % (Auto) 5.1, Eos % (Auto) 0.8, Baso % (Auto) 0.6, Absolute Neuts (auto) 3.2, Absolute Lymphs (auto) 1.33, Nucleated RBC % 0 06/05/21 10:15: B-Natriuretic Peptide 1110.4 H 06/05/21 12:50: Troponin I High Sens 74581 H* 06/05/21 13:15: Urine Opiates Screen POSITIVE H, Urine Methadone Screen NEGATIVE, Ur Barbiturates Screen NEGATIVE, Ur Phencyclidine Scrn NEGATIVE, Ur Amphetamines Screen NEGATIVE, MDMA (Ecstasy) Screen NEGATIVE, U Benzodiazepines Scrn NEGATIVE, Urine Cocaine Screen NEGATIVE, U Cannabinoids Screen POSITIVE H, Ur Drug Screen Comment 06/05/21 16:04: Troponin I High Sens 9090 H* 06/06/21 04:49: Sodium 137, Potassium 3.8, Chloride 107, Carbon Dioxide 25.0, Anion Gap 5, BUN 13, Creatinine 0.94, Estim Creat Clear Calc 61.14, Est GFR (MDRD) Af Amer 88, Est GFR (MDRD) Non-Af 72, BUN/Creatinine Ratio 13.8, Glucose 93, Calcium 8.8, Magnesium 2.3, Triglycerides 60, Cholesterol 144, LDL Cholesterol 85, VLDL Cholesterol 12, HDL Cholesterol 47 Cardiology Labs/Tests 06/05/21 09:40: WBC Cancelled, Corrected WBC Cancelled, RBC Cancelled, Hgb Cancelled, Hct Cancelled, MCV Cancelled, MCH Cancelled, MCHC Cancelled, Plt Count Cancelled, MPV Cancelled, Immature Gran % (Auto) Cancelled, Neut % (Auto) Cancelled, Lymph % (Auto) Cancelled, [place] % (Auto) Cancelled, Eos % (Auto) Cancelled, Baso % (Auto) Cancelled, Absolute Neuts (auto) Cancelled, Total Counted Cancelled, Neutrophils % (Manual) Cancelled, Band Neutrophils % Cancelled, Lymphocytes % (Manual) Cancelled, Monocytes % (Manual) Cancelled, Eosinophils % (Manual) Cancelled, Basophils % (Manual) Cancelled, Metamyelocytes % Cancelled, Myelocytes % Cancelled, Promyelocytes % Cancelled, Blast Cells % Cancelled, Plasma Cell % (Manual) Cancelled, Other Cells % Cancelled, Nucleated RBC % Cancelled 06/05/21 09:40: Sodium 137, Potassium 3.8, Chloride 107, Carbon Dioxide 22.0, Anion Gap 8, BUN 10, Creatinine 0.90, Est GFR (MDRD) Af Amer 92, Est GFR (MDRD) Non-Af 76, BUN/Creatinine Ratio 11.1, Glucose 99, Calcium 8.8 06/05/21 10:15: WBC 4.9, RBC 4.14 L, Hgb 10.5 L, Hct 30.3 L, MCV 73.2 L, MCH 25.4 L, MCHC 34.7, Plt Count 348, MPV 9.5, Immature Gran % (Auto) 0.200, Neut % (Auto) 65.9, Lymph % (Auto) 27.4, [place] % (Auto) 5.1, Eos % (Auto) 0.8, Baso % (Auto) 0.6, Absolute Neuts (auto) 3.2, Nucleated RBC % 0 06/05/21 10:15: B-Natriuretic Peptide 1110.4 H 06/06/21 04:49: Sodium 137, Potassium 3.8, Chloride 107, Carbon Dioxide 25.0, Anion Gap 5, BUN 13, Creatinine 0.94, Est GFR (MDRD) Af Amer 88, Est GFR (MDRD) Non-Af 72, BUN/Creatinine Ratio 13.8, Glucose 93, Calcium 8.8, Magnesium 2.3, Triglycerides 60, Cholesterol 144, LDL Cholesterol 85, VLDL Cholesterol 12, HDL Cholesterol 47 Rhythm: EKG: ECHO: Stress Test: Cardiac Cath: PCI: CT Surgery: Holter monitor: EPS: PPM: CXR: Chest CT Scan: Radiography Diagnostic Testing: Radiology Impression Chest X-Ray 06/05/21 09:59 IMPRESSION: No radiographic evidence of acute cardiopulmonary disease. No interval change. at 1018 Reported and signed by: Deric Bro MD Electronically Signed: Deric Bro MD at 10:17 EDT Reading Location ID and State: [facility] / [place] Tel , Service support , Chest CTA 06/05/21 10:35 IMPRESSION: 1. No evidence of acute pulmonary embolism. 2. Pulmonary edema secondary to CHF/fluid overload. 3. Cardiomegaly with left ventricular hypertrophy. Individualized dose optimization techniques were used for this CT. at 1142 Reported and signed by: Deric Bro MD Electronically Signed: Deric Bro MD at 11:41 EDT , Echocardiogram 06/05/21 14:40 Interpretation Summary Moderately dilated left ventricle. The estimated ejection fraction is 35 %. Pulmonary artery systolic pressure is 40 mmHg. Stage 2 diastolic dysfunction. Mild-Moderate (1-2+) eccentric mitral valve insufficiency. Mild to moderate (1-2+) tricuspid valve insufficiency. Ordering Physician: Jhonny Rothman Performed By: Ely Prince RDCS Physical Exam Const alert, oriented x3 and no apparent distress General Appearance: cooperative HEENT hearing grossly normal bilaterally Head and Scalp: atraumatic Eyes EOMs intact bilaterally Neck General: normal visual inspection Chest inspection of chest normal and palpation of chest normal Resp normal respiratory effort Auscultation: clear to auscultation bilaterally Cardio regular rate, regular rhythm, S1 normal heart sound and S2 normal heart sound Jugular Venous Distention: JVD GI normal to inspection, nondistended, normoactive bowel sounds Extremity normal capillary refill and no pedal edema Peripheral Pulses: Yes pulses 2+ throughout and femoral pulses present Skin no rashes or lesions noted Neuro oriented x3 and CN's II-XII intact bilaterally Psych Appearance: grossly normal and appropriate Assessment & Plan Assessment/Plan (1) Hypertensive emergency: PLAN: She presents with severe hypertension with evidence of cardiac enzyme elevation. Her blood pressure was initially treated with intravenous labetalol. She is currently being treated with oral beta-giselle with Lopressor 50 mg twice a day Losartan 50 mg twice a day Amlodipine 10 mg a day (2) Elevated troponin: PLAN: She does have significant cardiac enzyme elevation. It is likely that the above is a type II event due to the severe hypertension. * Cardiac catheterization done today demonstrates normal coronary arteries with moderately severely reduced left ventricular ejection fraction. I suspect this was the etiology of the troponin elevation (3) Cardiomyopathy: PLAN: She does have evidence of a cardiomyopathy which is likely on the basis of hypertensive heart disease. We will start guideline directed medical therapy. (4) CHF (NYHA class III, ACC/AHA stage C): PLAN: She does have evidence of congestive heart failure [place] Association class III with reduced ejection fraction. We will start the beta-giselle and titrate upwards Continue TYSON inhibitor for now which can later be switched to Entresto P.o. Susie Thank you for allowing me to participate in the care of your patient. Please don't hesitate to call if any issues arise. From my standpoint she can be discharged for outpatient follow-up.
--- NOTE | 2021-06-06 08:02 | CL.D_ITS ---
Patient Name: STARR HURLEY Study Date: 06/06/2021 Performing: Harmeet Sorenson MD Ht: 60 inches 152 cm : 1985 Wt: 223 lbs 101 kg Age: 35 Gender: female BSA: 1.95 PROCEDURE(S) PERFORMED [id number])LHC/COR/LV CLINICAL PROFILE AND INDICATIONS Indications: Cardiomyopathy Heart Failure: NYHA Class: 3, Newly Diagnosed: Yes, Heart Failure Type: Systolic Stress/Imaging Stress/Image Study Performed: No CAD Presentations: Symptom unlikely to be ischemic. CONCLUSIONS Normal coronary arteries Cardiomyopathy: Congestive RECOMMENDATIONS Medical therapy DESCRIPTION OF PROCEDURE The patient arrived to the procedure lab. The risks and benefits of the procedure as well as a full d escription of our services here and current unavailability of surgical backup were fully explained to the patient and/or their significant other prior to the catheterization. The Timeout was completed, verifying the correct patient and procedure. The patient's procedural site was prepped and draped in the usual fashion. Local anesthetic was given subcutaneously to right radial region with Lidocaine 2% . Using a modified Seldinger technique, arterial access was obtained via the right radial artery, a 6 Fr sheath was inserted. Left Coronary Artery selective angiography was performed in multiple views u sing a 5 Fr. 4.0 Eaton catheter. Right Coronary Artery selective angiography was then performed in mu ltiple views using a 5 Fr. 4.0 Eaton catheter. Left Ventriculography was performed in [place] projection using a 5 Fr. Pigtail catheter. LV to AO pullback pressures were then recorded.The arterial sheath was pulled and a TR Band was applied for hemostasis CORONARY ANGIOGRAPHY DOMINANCE: Right Dominant LEFT HEART ASSESSMENT Left Ventricular Ejection Fraction: by LV Gram 35 % Global Hypokinesis - Severe Depressed Left Ventricular systolic function LEFT MAIN: Angiographically normal LEFT ANTERIOR DESCENDING ARTERY: Angiographically normal CIRCUMFLEX ARTERY: Angiographically normal RIGHT CORONARY ARTERY: Angiographically normal COMPLICATIONS No Complications PROCEDURE MEDICATIONS Versed 1 mg IV Fentanyl 50 mcg IV Versed 1 mg IV Oxygen: 2 L/min via nasal cannula Heparin given IA 06/06/2021 07:40:51 Verapamil 2.5mg, Ntg 100mcgs, 3000 units of Heparin given IA 06/06/2021 07:40:51 SUMMARY OF HEMODYNAMIC DATA Time AIR REST ECG 07:19:50 AO 135/106 (117) SA 07:41:35 LV 115/24, 29 07:46:48 LV 119/24, 30 07:46:56 LV 130/31, 35 07:47:23 LV 116/27, 31 07:47:30 LVp 119/23, 27 07:47:37 AOp 130/96 (111) 07:47:42 Signed By Harmeet Sorenson MD On 06/06/2021 07:53:40 Harmeet Sorenson MD
[2021-06-06] MEDS: 0.9% Normal Saline 1,000 ML 45 ML IV (08:10)
[2021-06-06] MEDS: Furosemide 40 MG Tablet PO (08:19)
[2021-06-06] MEDS: Acetaminophen 325 MG Tablet 650 MG PO (08:19)
--- NOTE | 2021-06-06 09:39 | PCM.DC ---
Discharge Instructions Diet Discharge Diet: Low fat / Low cholesterol Activity Discharge Activity: Return to Normal Activity Follow Up Care Test Results: Test results from this visit will be discussed in further detail at your follow-up appointment, if applicable. Discharge Plan Admission Admit Date/Time: 06/05/21 13:32 Primary Reason for Your Visit: Chest pain. Hypertensive urgency. Attending Provider: Mega Viera Primary Care Provider: Care Physician,No Primary Consulting Providers: Harmeet Sorenson Discharge Orders/Prescriptions Prescriptions: New furosemide 40 mg Tablet 40 mg PO DAILY Qty: 30 RF: 0 amlodipine 10 mg Tablet 10 mg PO DAILY Qty: 30 RF: 0 metoprolol tartrate 50 mg Tablet 50 mg PO BID Qty: 60 RF: 0 losartan 100 mg Tablet 100 mg PO DAILY Qty: 30 RF: 0 potassium chloride 8 mEq capsule, extended release 8 meq PO DAILY Qty: 30 RF: 0 Referrals / Follow Up: Harmeet Sorenson MD [STAFF PHYSICIAN] - Within 1 Month (cardiomyopathy follow up) Elliott Ratliff MD [STAFF PHYSICIAN] - Within 2 Weeks (Establish Primary Care) Care Physician,No Primary [Primary Care Provider] - Disposition Disposition (needs filled in before D/C Order can be placed): Home, Self Care
--- NOTE | 2021-06-06 09:44 | PCM.DC.SUM ---
Providers Date of Admission: 06/05/21 Primary Care Physician: Alla Primary Care Phys Consultations 06/05/21 14:40 Consult: Cardiology Routine Consulting Provider: Harmeet Sorenson Reason for Consult: NSTEMI EMERGENT Consult: No MD Notified: Yes Date Notified: 06/05/21 Time Notified: 14:00 Method of Notification: Verbal Method of Consult:: In-Person Reason For Visit: HYPERTENSIVE EMERGENCY, ELEVATED TROPONIN Diagnosis Discharge Diagnosis (1) Hypertensive emergency: Status: Acute Code(s): I16.1 - Hypertensive emergency (2) Elevated troponin: Status: Acute Code(s): R77.8 - Other specified abnormalities of plasma proteins (3) Cardiomyopathy: Status: Acute Code(s): I42.9 - Cardiomyopathy, unspecified (4) CHF (NYHA class III, ACC/AHA stage C): Status: Acute Code(s): I50.9 - Heart failure, unspecified Medications at Discharge Home Medications amlodipine 10 mg PO DAILY #30 tab 06/06/21 furosemide 40 mg PO DAILY #30 tab 06/06/21 losartan 100 mg PO DAILY #30 tab 06/06/21 metoprolol tartrate 50 mg PO BID #60 tab 06/06/21 potassium chloride 8 meq PO DAILY #30 cap 06/06/21 Hospital Course Operations None Procedures 2-D Echocardiogram (Moderately dilated left ventricle. The estimated ejection fraction is 35 %. Pulmonary artery systolic pressure is 40 mmHg. Stage 2 diastolic dysfunction. Mild-Moderate (1-2+) eccentric mitral valve insufficiency. Mild to moderate (1-2+) tricuspid valve insufficiency.) and Cardiac catheterization (Normal coronary arteries Cardiomyopathy: Congestive) Summary of Care Provided Minutes Spent on Discharge: 28 Hospital Course: This is a 35-year-old female presents with complaints of chest pain. Patient was noted to be hypertensive with blood pressure of 212/161. Patient has known history of hypertension but has not taken meds in 3years saying that she has been just very busy having 3 kids and has not been established with a primary care doctor during this time. Patient's troponins were elevated at 14,091. Patient had 2D echocardiogram that showed an EF of 35%. Patient underwent cardiac catheterization that showed normal coronaries. Patient likely had nonischemic cardiomyopathy due to uncontrolled hypertension. Patient has been started on numerous medications for her hypertension. Patient will need to be established with a primary care physician and referral be made. Patient also need follow-up with cardiology to further evaluate her cardiomyopathy. Patient states that despite not being established with a primary care doctor in the past few years she is more than willing to follow-up and take her medications. Physical Exam Const alert and no apparent distress Resp normal respiratory effort, no retractions, no use of accessory muscles and clear to auscultation bilaterally Cardio regular rate, regular rhythm, S1 normal heart sound and S2 normal heart sound Extremity Extremity Narrative: Right wrist catheterization site intact. No ecchymosis noted. Weight / BMI Weight Weight: 100.7 kg Body Mass Index (BMI) 43.3 ABG / Lab / Microbiology Data Result Diagrams: 06/05/21 10:15 06/06/21 04:49 Laboratory: Laboratory Results - last 24 hr 06/05/21 09:40: Serum , Qual NEGATIVE 06/05/21 09:40: WBC Cancelled, Corrected WBC Cancelled, RBC Cancelled, Hgb Cancelled, Hct Cancelled, MCV Cancelled, MCH Cancelled, MCHC Cancelled, RDW Std Deviation Cancelled, RDW Coeff of Ruby Cancelled, Plt Count Cancelled, MPV Cancelled, Immature Gran % (Auto) Cancelled, Neut % (Auto) Cancelled, Lymph % (Auto) Cancelled, [place] % (Auto) Cancelled, Eos % (Auto) Cancelled, Baso % (Auto) Cancelled, Absolute Neuts (auto) Cancelled, Absolute Lymphs (auto) Cancelled, Total Counted Cancelled, Neutrophils % (Manual) Cancelled, Band Neutrophils % Cancelled, Lymphocytes % (Manual) Cancelled, Monocytes % (Manual) Cancelled, Eosinophils % (Manual) Cancelled, Basophils % (Manual) Cancelled, Metamyelocytes % Cancelled, Myelocytes % Cancelled, Promyelocytes % Cancelled, Blast Cells % Cancelled, Plasma Cell % (Manual) Cancelled, Other Cells % Cancelled, Nucleated RBC % Cancelled, Nucleated RBCs/100 WBC Cancelled, Differential Comment Cancelled, Diff Path Review Cancelled, Hypersegmented Neuts Cancelled, Atypical Lymphocytes Cancelled, Reactive Lymphocytes Cancelled, Smudge Cells Cancelled, Toxic Granulation Cancelled, Toxic Vacuolation Cancelled, Dohle Bodies Cancelled, Kimo Rods Cancelled, Platelet Estimate Cancelled, Plt Morphology Comment Cancelled, RBC Morphology Cancelled, Polychromasia Cancelled, Hypochromasia Cancelled, Poikilocytosis Cancelled, Basophilic Stippling Cancelled, Anisocytosis Cancelled, Microcytosis Cancelled, Macrocytosis Cancelled, Spherocytes Cancelled, Sickle Cells Cancelled, Target Cells Cancelled, Tear Drop Cells Cancelled, Ovalocytes Cancelled, Stomatocytes Cancelled, Orozco-Venersborg Bodies Cancelled, Dotty Cells Cancelled, Bite Cells Cancelled, Crenated Cell Cancelled, Acanthocytes (Spur) Cancelled, Rouleaux Cancelled, Schistocytes Cancelled 06/05/21 09:40: Sodium 137, Potassium 3.8, Chloride 107, Carbon Dioxide 22.0, Anion Gap 8, BUN 10, Creatinine 0.90, Estim Creat Clear Calc 63.86, Est GFR (MDRD) Af Amer 92, Est GFR (MDRD) Non-Af 76, BUN/Creatinine Ratio 11.1, Glucose 99, Calcium 8.8, Troponin I High Sens 78754 H* 06/05/21 10:15: WBC 4.9, RBC 4.14 L, Hgb 10.5 L, Hct 30.3 L, MCV 73.2 L, MCH 25.4 L, MCHC 34.7, RDW Std Deviation 46.8 H, RDW Coeff of Ruby 17.8 H, Plt Count 348, MPV 9.5, Immature Gran % (Auto) 0.200, Neut % (Auto) 65.9, Lymph % (Auto) 27.4, Dimmit % (Auto) 5.1, Eos % (Auto) 0.8, Baso % (Auto) 0.6, Absolute Neuts (auto) 3.2, Absolute Lymphs (auto) 1.33, Nucleated RBC % 0 06/05/21 10:15: B-Natriuretic Peptide 1110.4 H 06/05/21 12:50: Troponin I High Sens 30044 H* 06/05/21 13:15: Urine Opiates Screen POSITIVE H, Urine Methadone Screen NEGATIVE, Ur Barbiturates Screen NEGATIVE, Ur Phencyclidine Scrn NEGATIVE, Ur Amphetamines Screen NEGATIVE, MDMA (Ecstasy) Screen NEGATIVE, U Benzodiazepines Scrn NEGATIVE, Urine Cocaine Screen NEGATIVE, U Cannabinoids Screen POSITIVE H, Ur Drug Screen Comment 06/05/21 16:04: Troponin I High Sens 9090 H* 06/06/21 04:49: Sodium 137, Potassium 3.8, Chloride 107, Carbon Dioxide 25.0, Anion Gap 5, BUN 13, Creatinine 0.94, Estim Creat Clear Calc 61.14, Est GFR (MDRD) Af Amer 88, Est GFR (MDRD) Non-Af 72, BUN/Creatinine Ratio 13.8, Glucose 93, Calcium 8.8, Magnesium 2.3, Triglycerides 60, Cholesterol 144, LDL Cholesterol 85, VLDL Cholesterol 12, HDL Cholesterol 47 Radiography Diagnostic Testing: Radiology Impression Chest X-Ray 06/05/21 09:59 IMPRESSION: No radiographic evidence of acute cardiopulmonary disease. No interval change. at 1018 Reported and signed by: Deric Bro MD Electronically Signed: Deric Bro MD at 10:17 EDT , Chest CTA 06/05/21 10:35 IMPRESSION: 1. No evidence of acute pulmonary embolism. 2. Pulmonary edema secondary to CHF/fluid overload. 3. Cardiomegaly with left ventricular hypertrophy. Individualized dose optimization techniques were used for this CT. at 1142 Reported and signed by: Deric Bro MD Electronically Signed: Deric Bro MD at 11:41 EDT , Echocardiogram 06/05/21 14:40 Interpretation Summary Moderately dilated left ventricle. The estimated ejection fraction is 35 %. Pulmonary artery systolic pressure is 40 mmHg. Stage 2 diastolic dysfunction. Mild-Moderate (1-2+) eccentric mitral valve insufficiency. Mild to moderate (1-2+) tricuspid valve insufficiency. Ordering Physician: Jhonny Rothman Performed By: Ely Prince RDCS D/C Instructions Discharge Diet: Low fat / Low cholesterol Meaningful Use Info Meaningful Use Diagnoses (Choose all that apply): AMI and CHF AMI/Post PCI/Angioplasty Aspirin given w/in 24hrs of arrival?: Yes ASA at discharge?: No Reason ASA not ordered:: Allergy (Nonischemic) Antiplatelet Therapy at Discharge:: No Reason Antiplatelet Therapy not ordered:: Allergy (Nonischemic) Statins at discharge?: No Reason statins not ordered:: Allergy (Nonischemic) Tyson/ARB at discharge?: Yes Beta Abhijit at discharge?: Yes Done w/ Acute NC measure.: Yes Documented LVEF (%): 35 CHF TYSON/ARB ordered at discharge?: Yes Documented LVEF (%): 35 Discharge Plan Admission Admit Date/Time: 06/05/21 13:32 Primary Reason for Your Visit: Chest pain. Hypertensive urgency. Attending Provider: Mega Viera Primary Care Provider: Care Physician,No Primary Consulting Providers: Harmeet oSrenson Discharge Orders/Prescriptions Prescriptions: New furosemide 40 mg Tablet 40 mg PO DAILY Qty: 30 RF: 0 amlodipine 10 mg Tablet 10 mg PO DAILY Qty: 30 RF: 0 metoprolol tartrate 50 mg Tablet 50 mg PO BID Qty: 60 RF: 0 losartan 100 mg Tablet 100 mg PO DAILY Qty: 30 RF: 0 potassium chloride 8 mEq capsule, extended release 8 meq PO DAILY Qty: 30 RF: 0 Referrals / Follow Up: Harmeet Sorenson MD [STAFF PHYSICIAN] - Within 1 Month (cardiomyopathy follow up) Elliott Ratliff MD [STAFF PHYSICIAN] - Within 2 Weeks (Establish Primary Care) Care Physician,No Primary [Primary Care Provider] - Disposition Disposition (needs filled in before D/C Order can be placed): Home, Self Care Charges/Coding Visit Charges OBSV E&M: 17361 Observation care discharge
== END 2021-06-06 10:43 | disposition home or self-care (01) | DRG 192 ==
LOC: ED 13:01 → PCU 06-06 07:02
PROVIDERS: Admitting Provider Internal Medicine; Emergency Provider Emergency Medicine
DX: I16.1 Hypertensive emergency (principal); I42.9 Cardiomyopathy, unspecified; I50.9 Heart failure, unspecified; I11.0 Hypertensive heart disease with heart failure; F17.210 Nicotine dependence, cigarettes, uncomplicated; Z91.19 Patient's noncompliance with other medical treatment and regimen
CPT/HCPCS: 36415; 71045; 71275; 80048; 80061; 80307; 83735; 83880; 84484; 84703; 85025; 93005; 93306; 93458; 99152; 99153; 99285; J7030; Q9967; A4216; C1769; C1894; J1940; J2405

== ENCOUNTER 2021-06-24 08:49 | Emergency (ER) | payer MEDICAID, SELFPAY ==
[2021-06-24 08:50] VITALS: BP 141/100; PULSE 72; RESP 18; TEMP 36.7; O2SAT 97; BMI 39.0
--- NOTE | 2021-06-24 09:17 | EX.ED.VIS.EY ---
HPI <NICOLE Ribeiro - Last Filed: 06/24/21 09:41> History of Present Illness Chief Complaint: Eye Problem Narrative Narrative: 35-year-old female with history of hypertension presents the emerge department with a foreign body sensation to her left eye. Patient states she was watching her face this morning, thought she saw something white in her eye and came to the emergency department for evaluation. Patient was concerned there was a bug in her eye. Patient denies any visual changes, patient denies any fever chills nausea vomiting. Patient denies any severe eye pain. PFSH <NICOLE Ribeiro - Last Filed: 06/24/21 09:41> PFSH Medical History Anxiety Cardiomyopathy CHF (NYHA class III, ACC/AHA stage C) HFrEF (heart failure with reduced ejection fraction) Hypertension Non-ischemic cardiomyopathy Smoker Home Medications amlodipine 10 mg PO DAILY #30 tab 06/06/21 [Rx Last Taken Unknown] furosemide 40 mg PO DAILY #30 tab 06/06/21 [Rx Last Taken Unknown] losartan 100 mg PO DAILY #30 tab 06/06/21 [Rx Last Taken Unknown] metoprolol tartrate 50 mg PO BID #60 tab 06/06/21 [Rx Last Taken Unknown] potassium chloride 8 meq PO DAILY #30 cap 06/06/21 [Rx Last Taken Unknown] erythromycin 1 applic LEFT EYE TID 4 Days #1 g 06/24/21 [Rx Last Taken Unknown] Allergy/AdvReac Type Severity Reaction Status Date / Time hydrocodone bitartrate Allergy Hives Verified 06/24/21 08:49 [From Vicodin] meperidine HCl [From Demerol] Allergy Hives Verified 06/24/21 08:49 Family History Mother Breast cancer Hypertension Diabetes Heart disease Surgical History (Updated 06/06/21 @ 08:53 by Gilma Lopez) History of left heart catheterization (06/06/21) Social History Smoking Status: Current every day smoker tobacco type: cigarettes ROS <NICOLE Ribeiro - Last Filed: 06/24/21 09:41> ROS ED ROS Narrative Constitutional: Negative for fever, chills, weight loss or gain, weakness Eyes: Negative for vision loss, vision change, double vision. Positive for for sensation to the left eye ENT: Negative for any hearing changes, ringing in the ears, discharge, pain Nose: Negative for any congestion, runny nose, sinus pain, allergies Throat: Negative for any sore throat, swelling, voice changes, Cardiovascular: Negative for any chest pain, tightness, palpitations, racing heartbeat Respiratory: Negative for any cough, sputum production, hemoptysis, shortness of breath, shortness of breath on exertion, Gastrointestinal: Negative for any abdominal pain, nausea, vomiting, diarrhea, constipation, blood in stool, blood in vomit : Negative for any urinary frequency, incontinence, dysuria, retention, blood in urine Muscle skeletal: Negative for any muscle joint pain, stiffness, myalgias, arthralgias, neck pain, back pain Neurological: Negative for any headache, dizziness, syncope, numbness or tingling Skin: Negative for any rashes, lumps, itching, abrasions, lacerations Psychiatric: Negative for any depression, anxiety, stress, suicidal ideation, homicidal ideation Hematologic: Negative for any easy bruising, excessive bruising, easy bleeding Allergies: Negative for any eczema, hives, rash EXAM <NICOLE Ribeiro - Last Filed: 06/24/21 09:41> Physical Exam Const Vital Signs: 06/24/21 08:50 Temperature 98.1 F Temperature Source Temporal Pulse Rate 72 Respiratory Rate 18 Blood Pressure 141/100 H Blood Pressure Mean 113 Pulse Ox 97 Oxygen Delivery Method Room Air Positive well nourished and well developed General Appearance ED: well developed HEENT atraumatic Eyes Eyes Narrative: On initial inspection, there was a small white foreign body, this did move around once the tetracaine was placed. On reinspection with the use of Q-tip, there was no foreign body noted. Patient did receive tetracaine, fluorescein staining, there was no obvious abrasion. Patient tolerated well. There is no redness of the conjunctiva, negative for any cellulitis, deep tissue infection. General Eye ED: Yes normal appearance of both eyes and normal light reflex Visual Acuity: acuity normal Neck no lymphadenopathy and supple Resp normal respiratory effort and clear to auscultation bilaterally Cardio regular rate and regular rhythm GI non-tender and non-distended Palpation: soft Back/Spine no CVA tenderness Extremity normal to inspection Neuro oriented x3 Sensorium / Orientation: alert, oriented to person and oriented to place Skin Rashes: no rashes [facility] <NICOLE Ribeiro - Last Filed: 06/24/21 09:41> [facility] Narrative Medical decision making narrative: Patient appears well, patient appears nontoxic, vital signs are stable. Patient presents to the emergency department with a foreign body sensation to her left eye. Upon initial inspection, there was a small white piece of an object, once tetracaine was placed, this object moved, and after fluorescein staining was no longer visible. There was no obvious corneal abrasion, patient tolerated well. Due to the foreign body seen, the patient be placed on erythromycin ointment to cover for any infection. Patient will follow up closely with eye clinic. Patient struck to return for any vision changes, worsening eye pain, fever chills nausea vomiting. Lab Data Attestation: I reviewed the patient's lab results. <Dr. Katherin Fleming, - Last Filed: 06/24/21 09:28> [facility] Narrative Medical decision making narrative: Patient was evaluated with physician oceanographer assistant. I fully evaluated the patient and agree with assessment. Patient had foreign body sensation for likely over something in her eye while washing her face today. She attempted to remove it with a Q-tip and was unsuccessful. Patient denies any eye pain currently. She denies photophobia. On exam patient is noted to have normal pupils that are reactive. There is no conjunctival erythema. Eyelids were everted no foreign bodies noted. The eye was stained with fluorescein and I do not appreciate any corneal abrasions or foreign bodies. Plan will be to start patient on antibiotic eyedrops and have her follow-up with ophthalmology within the next 2 to 3 days if symptoms do not improve. Patient advised to return if worsening pain increased redness, vision changes, or condition should worsen anyway. Discharge Plan Triage Chief Complaint: Eye Problem ED Midlevel Provider: Leonardo Barber ED Provider: Katherin Fleming Dx/Rx/DC Orders Clinical Impression: Abrasion, corneal Instructions: Corneal Injury Prescriptions: New erythromycin 5 mg/gram (0.5 %) ointment 1 applic LEFT EYE TID 4 Days Qty: 1 RF: 0 No Action furosemide 40 mg Tablet 40 mg PO DAILY Qty: 30 RF: 0 amlodipine 10 mg Tablet 10 mg PO DAILY Qty: 30 RF: 0 metoprolol tartrate 50 mg Tablet 50 mg PO BID Qty: 60 RF: 0 losartan 100 mg Tablet 100 mg PO DAILY Qty: 30 RF: 0 potassium chloride 8 mEq capsule, extended release 8 meq PO DAILY Qty: 30 RF: 0 Primary Care Provider: Care Physician,No Primary Referrals: Godfrey Lake MD [STAFF PHYSICIAN] - Care Physician,No Primary [Primary Care Provider] - Activity Restrictions/Additional Instructions: Please see ophthalmology this upcoming week. You will place 1/2 inch ribbon of the medication to your bottom eyelid 3 times a day for 4 days. Print Language: Uzbek Disposition Disposition: Home, Self Care
[2021-06-24] MEDS: Fluorescein 1 MG STRIP 1 STRIP LEFT EYE (10:07)
[2021-06-24] MEDS: Tetracaine 0.5% Ophthalmic Bottle 1 DRP LEFT EYE (10:07)
== END 2021-06-24 10:09 | disposition home or self-care (01) ==
LOC: ED 09:54
PROVIDERS: Emergency Provider Emergency Medicine; Visit Provider Emergency Medicine
DX: S05.02XA Injury of conjunctiva and corneal abrasion without foreign body, left eye, initial encounter (principal); I11.0 Hypertensive heart disease with heart failure; I42.8 Other cardiomyopathies; I50.22 Chronic systolic (congestive) heart failure; F17.210 Nicotine dependence, cigarettes, uncomplicated; Z79.899 Other long term (current) drug therapy; X58.XXXA Exposure to other specified factors, initial encounter; Y93.9 Activity, unspecified; Y99.9 Unspecified external cause status; Y92.9 Unspecified place or not applicable
CPT/HCPCS: 99282

== ENCOUNTER 2021-09-10 05:23 | Inpatient (IN) | payer MEDICAID, SELFPAY ==
[2021-09-10] VITALS (25 sets, daily range): BP systolic 133–188; BP diastolic 111–144; PULSE 77–124; RESP 16–23; TEMP 36.1–37.3; O2SAT 93–100; BMI 43.9; BMI 42.8
--- NOTE | 2021-09-10 05:31 | EKG12_ITS ---
Test Reason : SOB Blood Pressure : / mmHG Vent. Rate : 121 BPM Atrial Rate : 121 BPM P-R Int : 142 ms QRS Dur : 088 ms QT Int : 320 ms P-R-T Axes : 046 057 -02 degrees QTc Int : 454 ms Sinus tachycardia Nonspecific T wave abnormality Abnormal ECG Confirmed by JOCELYN GILLIS, AKSHAT ([id number]), photographic editor MONET CARROLL ([id number]) on 09/15/2021 11:49:48 AM Referred By: Confirmed By:AKSHAT BANKS MD
--- NOTE | 2021-09-10 05:34 | EKG12_ITS ---
Test Reason : SOB Blood Pressure : / mmHG Vent. Rate : 120 BPM Atrial Rate : 120 BPM P-R Int : 144 ms QRS Dur : 092 ms QT Int : 328 ms P-R-T Axes : 052 055 -47 degrees QTc Int : 463 ms Sinus tachycardia T wave abnormality, consider lateral ischemia Abnormal ECG Confirmed by FADUMO GILLIS, AMANDA ([id number]), purchase request editor MARLON ENRIQUEZ ([id number]) on 09/11/2021 10:13:52 AM Referred By: Confirmed By:AMANDA THORNE MD
[2021-09-10 05:42] LABS: Absolute Lymphocyte Count 2.31 X10^3/uL (0.83-4.51); Basophil# 0.03 X10^3/uL; Basophil% 0.4 % (0-1); Eosinophil# 0.08 X10^3/uL; Eosinophils% 1.2 % (0-5); Hematocrit 34.5 % (37-47); Hemoglobin 11.7 g/dL (12.0-15.0); Lymphocyte # 2.31 X10^3/ul (0.83-4.51); Lymphocyte % 33.6 % (19-41); Mean Corp Hgb Conc 33.9 g/dL (32-36); Mean Corpuscular Hgb 25.6 pg (27.0-32.0); Mean Corpuscular Volume 75.5 fL (81-99); Mean Platelet Vol. 9.5 fl (6.2-12.0); Monocyte# 0.41 X10^3/uL; NRBC Flagged by Analyzer 0 % (0-5); Neutrophil # 4.03 X10^3/uL (2.7-7.7); Neutrophil % 58.5 % (47-70); Platelet Count 402 K/mm3 (150-450); RBC Distribution Width CV 18.1 % (11.6-14.6); RBC Distribution Width SD 49.3 fl (35.1-43.9); Red Blood Count 4.57 M/mm3 (4.2-5.4); White Blood Count 6.9 K/mm3 (4.4-11.0)
--- NOTE | 2021-09-10 05:48 | ED.VIS.DYS ---
HPI History of Present Illness Chief Complaint: Shortness of Breath Informant: patient Onset/Context/Timing Onset: Weeks (2-3) Context: gradual Timing: Continuous Quality: Positive for Orthopnea Worsened by: Lying flat Relieved by: other (Sitting up and standing) Associated Symptoms cough; Negative for rhinorrhea, ear pain, fever, sore throat, chills or sweats Chest Pain: Positive for Tightness (Left chest) Narrative Narrative: Patient presents with shortness of breath that has been getting progressively worse over the past 2 to 3 weeks. Patient states that she ran out of her medications approximately 2 to 3 weeks ago. Patient states she was unable to make her appointment because she had to care for her children. Patient states her breathing is worse whenever she lays flat. Patient states it is better when she sits in a hot bath. Patient admits to a cough and some wheezing. Patient denies any fevers or chills. Patient denies any sore throat or rhinorrhea. Patient does admit to some tightness over the left side of her chest. Patient denies any nausea or vomiting. PFSH PFSH Medical History Anxiety Cardiomyopathy CHF (NYHA class III, ACC/AHA stage C) Former smoker HFrEF (heart failure with reduced ejection fraction) Hypertension Myocardial infarct Non-ischemic cardiomyopathy Smoker Allergy/AdvReac Type Severity Reaction Status Date / Time hydrocodone bitartrate Allergy Hives Verified 06/24/21 08:49 [From Vicodin] meperidine HCl [From Demerol] Allergy Hives Verified 06/24/21 08:49 Family History Mother Breast cancer Hypertension Diabetes Heart disease Surgical History History of History of left heart catheterization (06/06/21) Social History Smoking Status: Former smoker ROS ROS ED Constitutional Constitutional ED: Denies chills or fever(s) Eyes Eyes: Denies blurry vision or change in vision ENT ENT ED: Denies rhinorrhea or sore throat Cardiovascular Cardiovascular: Reports chest pain; Denies palpitations Respiratory/Chest Respiratory/Chest: Reports cough and dyspnea Gastrointestinal Gastrointestinal: Denies nausea or vomiting Genitourinary Genitourinary ED: Reports urinary frequency; Denies dysuria or hematuria Musculoskeletal Musculoskeletal: Reports back pain; Denies neck pain Integumentary Denies abscess or rash Neurologic Neurologic: Denies headache(s) or weakness Allergic/Immunologic Allergic/Immunologic ED: Denies mouth swelling or urticaria EXAM Physical Exam Const Vital Signs: 09/10/21 05:27 09/10/21 05:33 09/10/21 05:34 Temperature 99.1 F Temperature Source Oral Pulse Rate 124 H Respiratory Rate 18 Respiratory Effort Short of Breath Respiratory Depth Normal Respiratory Pattern Tachypnea Blood Pressure 179/130 H Blood Pressure Mean 146 Pulse Ox 99 99 Oxygen Delivery Method Nasal Cannula Room Air Nasal Cannula Oxygen Flow Rate (L/min) 2 2 09/10/21 05:56 09/10/21 06:16 Temperature Temperature Source Pulse Rate 106 H 104 H Respiratory Rate 23 H Respiratory Effort Respiratory Depth Respiratory Pattern Blood Pressure 188/144 H 166/124 H Blood Pressure Mean 158 Pulse Ox 100 Oxygen Delivery Method Nasal Cannula Oxygen Flow Rate (L/min) 2 Positive well nourished, well developed and obese General Appearance ED: well developed Nutritional Appearance: obese HEENT Reports moist mucous membranes Neck supple and no JVD Resp normal respiratory effort Auscultation: wheezes expiratory wheezes and throughout Cardio regular rhythm Rate: tachycardic GI non-tender and non-distended Auscultation: normoactive bowel sounds Palpation: soft Extremity normal to inspection General Extremety ED: Negative for edema or tenderness General Extremity: Negative for edema Neuro oriented x3, CN's II-XII intact bilaterally and no sensory deficits noted Sensorium / Orientation: alert Speech: speech normal Motor Exam: strength 5/5 throughout Psych mental status grossly normal MDM MDM MDM Narrative Medical decision making narrative: EKG was obtained. On my interpretation, it showed a sinus tachycardia with a rate of 120. HI interval, QRS interval, and QTc intervals were all normal. Shannon was normal. There are nonspecific ST-T wave changes. This was unchanged compared to previous EKG dated 06/06/2021. CBC was within normal limits. Basic metabolic profile was essentially within normal limits. High-sensitivity troponin was elevated to 51. BNP was elevated at 1192.8. Portable chest x-ray was obtained. There is 1 view. On my interpretation there is evidence of congestive heart failure. There is cardiomegaly. Bony thorax is normal. There are no infiltrates. Radiologist also interpreted the x-ray and agrees. Patient was given a dose of Lasix here. Patient was given aspirin. Patient was given nitroglycerin paste. Case was discussed with the hospitalist. She will admit the patient to PCU. Patient understood and was agreeable with the plan. All questions were answered. Lab Data Attestation: I reviewed the patient's lab results. Labs: Laboratory Results - last 24 hr 09/10/21 09/10/21 09/10/21 05:31 05:31 05:31 WBC 6.9 RBC 4.57 Hgb 11.7 L Hct 34.5 L MCV 75.5 L MCH 25.6 L MCHC 33.9 RDW Std Deviation 49.3 H RDW Coeff of Ruby 18.1 H Plt Count 402 MPV 9.5 Immature Gran % (Auto) 0.300 Neut % (Auto) 58.5 Lymph % (Auto) 33.6 [place] % (Auto) 6.0 Eos % (Auto) 1.2 Baso % (Auto) 0.4 Absolute Neuts (auto) 4.0 Absolute Lymphs (auto) 2.31 Nucleated RBC % 0 Sodium 138 Potassium 3.7 Chloride 109 H Carbon Dioxide 22.0 Anion Gap 7 BUN 15 Creatinine 0.92 Estim Creat Clear Calc 61.89 Est GFR (MDRD) Af Amer 89 Est GFR (MDRD) Non-Af 74 BUN/Creatinine Ratio 16.2 Glucose 122 H Calcium 8.8 Troponin I High Sens 251 H* B-Natriuretic Peptide 1192.8 H Radiography Chest X-Ray - ED: 1 View, Read by ED Physician, Read by Radiologist and CHF Diagnostic Testing: Clinical Impression(s) from Imaging Studies Chest X-Ray 09/10/21 05:55 IMPRESSION: Hazy lung opacities suggest possible pulmonary edema versus early infiltrates. Borderline cardiomegaly. Electronically Signed: Veronika Hinkle MD at 6:18 EDT , EKG Initial EKG: Interpretation: Sinus Tachycardia (120) and Non-Specific ST Changes Prior EKG tracings: available for review Prior: Unchanged (06/06/2021) Discharge Plan Triage Chief Complaint: Shortness of Breath ED Provider: Mega Chu Dx/Rx/DC Orders Clinical Impression: Congestive heart failure, Elevated troponin Primary Care Provider: Care Physician,No Primary Referrals: Care Physician,No Primary [Primary Care Provider] - Disposition Disposition: Acute Care Hospital [facility]
[2021-09-10] MEDS: Aspirin 81 MG TAB.CHEW 324 MG PO (05:53)
--- NOTE | 2021-09-10 05:55 | RAD_ITS ---
STUDY: X-RAY CHEST REASON FOR EXAM: Female, 36 years old. chest pain TECHNIQUE: AP portable. 5:53 AM. COMPARISON: 06/05/2021. FINDINGS: LUNGS: Hazy opacities in the mid to lower lungs. No pneumothorax. MEDIASTINUM: Unremarkable. CARDIAC SILHOUETTE: Top normal size. Stable. BONES AND SOFT TISSUES: No acute abnormalities. RAD/Chest 1 View (Portable) IMPRESSION: Hazy lung opacities suggest possible pulmonary edema versus early infiltrates. Borderline cardiomegaly. Electronically Signed: Veronika Hinkle MD at 6:18 EDT ,
[2021-09-10 06:00] LABS: BNP,B-Type NATRIURETIC PEPTIDE 1192.8 pg/mL (0-100)
--- NOTE | 2021-09-10 06:09 | ED.RN ---
DR MORENO NOTIFIED OF ELEVATED TROPONIN
[2021-09-10 06:11] LABS: Anion Gap 7 (5-15); BUN 15 mg/dL (7-18); BUN/Creat Ratio 16.2 RATIO (10-20); Calcium,Total 8.8 mg/dL (8.5-10.1); Chloride 109 mmol/L (98-107); Creatinine, Serum 0.92 mg/dL (0.55-1.02); EST Glomerular Filtration Rate 74 mL/min (>60); Est Glom Filt Rate - Afr Amer 89 mL/min (>60); Estimated Creatinine Clearance 61.89 ml/min; Glucose 122 mg/dL (74-106); Potassium 3.7 mmol/L (3.5-5.1); Sodium Level 138 mmol/L (136-145); Troponin-I HS (w/2H Reflex) 251 pg/mL (3.0-54.0)
[2021-09-10] MEDS: Nitroglycerin Oint 1 INCH PACKET TD (06:16)
[2021-09-10] MEDS: Furosemide 40 MG/4 ML Vial IV ×3 (06:19→17:58)
--- NOTE | 2021-09-10 07:12 | HP.PCM.HOS_ITS ---
HPI - General General Date of Admission: 09/10/21 Date of Service: 09/10/21 Chief Complaint: shortness of breath HPI Narrative STARR HURLEY, is a 36 F with a PMH as outlined who presents via the ED on 09/10/2021 with a complaint of shortness of breath. This had been ongoing for about 2-3 weeks prior to admission. She does have a history of congestive heart failure. She run out of her meds a few weeks ago and hadnt seen her doctors or gotten a refill because she was caring for her children. She admitted to associated orthopnea, wheezing and some left sided chest pain. She denied any nausea, vomiting or diarrhea. Review of systems was otherwise negative. She had a cath back in May 2021 which showed EF of 35% and clean coronaries. Vitals in the ED were BP of 166/124, KS of 104, RR of 23 and she was saturating at 100% on 2L of oxygen. CBC showed Hb of 11.7 with wbc of 6.9 and platelets of 402. Chemistry was unremarkable, and initial troponin was 251, with BNP of 1192.8. CXR showed hazy lung opacities suggesting possible pulmonary edema vs early infiltrates and borderline cardiomegaly. EKG showed no acute ST changes. She is being admitted to be managed for acute on chronic HFrEF due to medication noncompliance. PFSH Medical History Anxiety Cardiomyopathy CHF (NYHA class III, ACC/AHA stage C) Former smoker HFrEF (heart failure with reduced ejection fraction) Hypertension Myocardial infarct Non-ischemic cardiomyopathy Smoker Home Medications amlodipine 10 mg tablet tab blood pressure 09/10/21 [History Last Taken Unknown] furosemide 40 mg tablet tab water pill 09/10/21 [History Last Taken Unknown] losartan 100 mg tablet tab blood pressure 09/10/21 [History Last Taken Unknown] Allergy/AdvReac Type Severity Reaction Status Date / Time hydrocodone bitartrate Allergy Hives Verified 06/24/21 08:49 [From Vicodin] meperidine HCl [From Demerol] Allergy Hives Verified 06/24/21 08:49 Family History Mother Breast cancer Hypertension Diabetes Heart disease Surgical History History of History of left heart catheterization (06/06/21) Social History (Updated 09/10/21 @ 09:07 by Zainab Falcon) household members: children housing: house Smoking Status: Former smoker ROS Constitutional Constitutional: Reports fatigue; Denies anorexia, chills, fever(s), malaise or weakness Eyes Eyes: Denies change in vision ENT HEENT: Denies dysphagia or headache(s) Cardiovascular Cardiovascular: Reports chest pain, dyspnea on exertion, edema, orthopnea and paroxysmal nocturnal dyspnea; Denies lightheadedness, palpitations, rapid heart rate or syncope Respiratory/Chest Respiratory/Chest: Reports cough, dyspnea, shortness of breath at rest, shortness of breath with exertion and wheezing; Denies excessive phlegm production, hemoptysis or productive cough Gastrointestinal Gastrointestinal: Denies abdominal pain, constipation, diarrhea, dyspepsia, nausea or vomiting Genitourinary Genitourinary: Denies dysuria Musculoskeletal Musculoskeletal: Denies arthralgias or back pain Neurologic Neurologic: Denies confusion, dizziness, focal weakness, headache(s), seizures, syncope, tingling or tremor(s) Psychiatric Psychiatric: Denies anxiety or depression Hematologic/Lymphatic Hematologic/Lymphatic: Denies anemia Vital Signs Vital Signs Vital Signs: 09/10/21 05:27 09/10/21 05:33 09/10/21 05:34 Temperature 99.1 F Temperature Source Oral Pulse Rate 124 H Respiratory Rate 18 Respiratory Effort Short of Breath Respiratory Depth Normal Respiratory Pattern Tachypnea Blood Pressure 179/130 H Blood Pressure Mean 146 Pulse Ox 99 99 Oxygen Delivery Method Nasal Cannula Room Air Nasal Cannula Oxygen Flow Rate (L/min) 2 2 09/10/21 05:56 09/10/21 06:16 Temperature Temperature Source Pulse Rate 106 H 104 H Respiratory Rate 23 H Respiratory Effort Respiratory Depth Respiratory Pattern Blood Pressure 188/144 H 166/124 H Blood Pressure Mean 158 Pulse Ox 100 Oxygen Delivery Method Nasal Cannula Oxygen Flow Rate (L/min) 2 Weight Weight: 224 lb 10.417 oz Body Mass Index (BMI) 43.9 Physical Exam Const alert, oriented x3 and no apparent distress Constitutional Narrative: morbid obesity General Appearance: cooperative HEENT normocephalic, head/scalp atraumatic, hearing grossly normal bilaterally and moist oral mucous membranes Neck no lymphadenopathy Resp Resp Narrative: diminished breath sounds bibasally, mild wheezing, few crackles. Cardio regular rate, regular rhythm, S1 normal heart sound, S2 normal heart sound and no murmurs GI normal to inspection, nondistended, normoactive bowel sounds, soft to palpation, non-tender and non-distended Extremity normal to inspection, full ROM and no clubbing, cyanosis or edema Neuro oriented x3, CN's II-XII intact bilaterally, moves all extremities and no focal motor deficits Sensorium / Orientation: awake Motor Exam: strength 5/5 throughout Psych affect normal Results Lab / Micro Data Result Diagrams: 09/10/21 05:31 09/10/21 05:31 Labs: Laboratory Results - last 24 hr 09/10/21 05:31: WBC 6.9, RBC 4.57, Hgb 11.7 L, Hct 34.5 L, MCV 75.5 L, MCH 25.6 L, MCHC 33.9, RDW Std Deviation 49.3 H, RDW Coeff of Ruby 18.1 H, Plt Count 402, MPV 9.5, Immature Gran % (Auto) 0.300, Neut % (Auto) 58.5, Lymph % (Auto) 33.6, [place] % (Auto) 6.0, Eos % (Auto) 1.2, Baso % (Auto) 0.4, Absolute Neuts (auto) 4.0, Absolute Lymphs (auto) 2.31, Nucleated RBC % 0 09/10/21 05:31: Sodium 138, Potassium 3.7, Chloride 109 H, Carbon Dioxide 22.0, Anion Gap 7, BUN 15, Creatinine 0.92, Estim Creat Clear Calc 61.89, Est GFR (MDRD) Af Amer 89, Est GFR (MDRD) Non-Af 74, BUN/Creatinine Ratio 16.2, Glucose 122 H, Calcium 8.8, Troponin I High Sens 251 H* 09/10/21 05:31: B-Natriuretic Peptide 1192.8 H Radiology Impression Chest X-Ray 09/10/21 05:55 IMPRESSION: Hazy lung opacities suggest possible pulmonary edema versus early infiltrates. Borderline cardiomegaly. Electronically Signed: Veronika Hinkle MD at 6:18 EDT , Assessment & Plan Assessment/Plan (1) Congestive heart failure: (2) Elevated troponin: PLAN: Plan #Acute on chronic combined systolic and diastolic heart failure * due to noncompliance with her meds * says her meds run out a few weeks ago and she has not been able to see her doctors or get a refill * admit to PCU with telemetry * CXR showed bilateral hazy opacities suggesting pulmonary edema vs early infiltrates, adn borderline cardiomegaly * BNP is elevated at 1192. initial troponin also elevated at 251 * diurese with IV lasix 40mg bid. * fluid restriction to 1500cc daily * monitor intake and output * breathing treatment wtih bronchodilators * cycle troponins. * 2D echo from May 2021 showed EF of 35%, with moderately dilated LV, and pulmonary artery systolic pressure of 40mmHg as well as stage 2 diastolic dysfunction * patient doesnt know what meds she is on, but from her previous discahrge summary, she is on losartan 100mg daily, metoprolol 50mg bid and amlodipine 10mg daily * #Nstemi * initial troponin is elevated at 251 * EKG showed no acute ST changes * I think this is likely a type 2 nonstemi due to demand ischemia from acute on chronic heart failure * cycle troponins * had a cardiac cath on 06/06/2021 which showed normal coronaries * aspirin 81mg daily * consult cardiology * DVT prophylaxis: lovenox Code status: full code. Charges/Coding Visit Charges Inpatient E&M: 02115 Init Hosp L3
[2021-09-10 07:39] LABS: Reflex Troponin-HS? (from REC) Y
[2021-09-10] MEDS: Metoprolol Tartrate 5 MG/5 ML Vial IV ×3 (08:21→08:32)
[2021-09-10 09:01] LABS: Troponin-I HS 240 pg/mL (3.0-54.0)
[2021-09-10] MEDS: Acetaminophen 325 MG Tablet 650 MG PO (09:18)
[2021-09-10] MEDS: Enoxaparin 40 MG/0.4 ML Syringe SC ×2 (10:19→22:28)
[2021-09-10] MEDS: 0.9% Saline Lock 10 ML Syringe IV (10:19)
[2021-09-10 12:18] LABS: Troponin-I HS 247 pg/mL (3.0-54.0)
[2021-09-10] MEDS: Ipratropium/Albuterol Sulfate 3 ML AMPUL.NEB INHALATION ×2 (14:45→19:38)
[2021-09-10] MEDS: Metoprolol Tartrate 50 MG Tablet PO (15:24)
[2021-09-10] MEDS: amLODIPine 10 MG Tablet PO (15:24)
--- NOTE | 2021-09-10 16:20 | CON.PCM.CA_ITS ---
Assessment & Plan Assessment/Plan (1) Accelerated hypertension with NYHA class 4 systolic heart failure: (2) Elevated troponin: (3) Non compliance w medication regimen: (4) Obesity: (5) Hypokalemia due to excessive renal loss of potassium: (6) Type 2 ND (myocardial infarction): PLAN: Plan Assessment: 1. Accelerated hypertension with class IV acute on chronic systolic left heart failure 2. Personal history of hypertension with hypertensive heart disease and LV systolic dysfunction as well as LV diastolic dysfunction. LV end-diastolic pressure was 23 to 30 mmHg at the time of coronary angiography. 3. Medication noncompliance related to social responsibilities, single mother, work responsibilities. 4. Type II myocardial infarction recent coronary angiography showed angiographically normal coronary arteries 5. Iatrogenic hypokalemia 6. Increased BMI. 7. Poor social support. Recommendations: 1. Entresto 24/26 p.o. twice daily, with goal to uptitrate as tolerated. 2. I suspect that we will be able to quickly increase dose to Entresto 49/51 p.o. twice daily 3. She has Medicaid, hence unlikely that the Entresto will be cost prohibitive for her, social service to check 4. Aldactone 50 mg p.o. daily 5. Discontinue amlodipine 6. Carvedilol 12.5 mg p.o. twice daily, uptitrate to 25 mg p.o. twice daily and even further based on heart rate and blood pressure. 7. Discussed extensively the importance of medication compliance, and she understands. 8. Weight management was touched upon, this is to be addressed at subsequent office visits. 9. Dietary education for congestive heart failure. Does not require additional work-up for ischemic heart disease. Thank you for allowing us to participate in patient's care, please do not hesitate to call if further questions arise, Sincerely, Skye Castillo MD [facility] HPI Consult Data Date of Consult: 09/10/21 HPI Narrative Reason for Consultation: Chest discomfort and shortness of breath HPI Narrative: STARR HURLEY, is a 36 F who presents with over 1 week history of worsening shortness of breath orthopnea PND and chest tightness. She is a single mother of 4 children, works part-time at the [employer], could not make it to doctors appointments, and her medications ran out. She has had a similar presentation in May 2021, at which time she had elevated troponins accelerated hypertension cardiomyopathy with left ventricular ejection fraction of 25 to 30% angiographically normal coronary arteries LVEDP 23 to 30 mmHg. On her echocardiogram she had left atrial enlargement of 4.2 cm left ventricular enlargement with end-systolic dimension of 5.5 cm, 1-2+ eccentric mitral regurgitation, 1-2+ tricuspid regurgitation, 1+ pulmonary regurgitation and RV systolic pressure of 40 mmHg. Her BMI is excessive. There is no family history of premature coronary artery disease. Since admission, with initiation of medications and some diuretics her symptoms have improved. She is anxious to be discharged. She had accelerated hypertension on presentation to the emergency department. She denies any fever chills or cough. Denies any bleeding diathesis TIA sym ptoms or history of DVT or pulmonary embolism. Denies headache or diplopia. Denies any focal weakness. Her troponin is mildly elevated. Her EKG shows lateral ST-T abnormality which is unchanged compared to prior EKGs. [employer] Medical History Anxiety Cardiomyopathy CHF (NYHA class III, ACC/AHA stage C) Former smoker HFrEF (heart failure with reduced ejection fraction) Hypertension Myocardial infarct Non-ischemic cardiomyopathy Smoker Home Medications amlodipine 10 mg tablet tab blood pressure 09/10/21 [History Last Taken Unknown] furosemide 40 mg tablet tab water pill 09/10/21 [History Last Taken Unknown] losartan 100 mg tablet tab blood pressure 09/10/21 [History Last Taken Unknown] Allergy/AdvReac Type Severity Reaction Status Date / Time hydrocodone bitartrate Allergy Hives Verified 06/24/21 08:49 [From Vicodin] meperidine HCl [From Demerol] Allergy Hives Verified 06/24/21 08:49 Family History Mother Breast cancer Hypertension Diabetes Heart disease Surgical History History of History of left heart catheterization (06/06/21) Social History (Updated 09/10/21 @ 09:07 by Zainab Falcon) household members: children housing: house Smoking Status: Former smoker ROS ROS Narrative 12 point review of systems was obtained. Except as noted in history of present illness, review of systems is negative. Physical Exam Narrative Awake alert able to speak in full sentences no accessory muscle use not on oxygen. Hypertensive, sinus tachycardia noted oxygen saturation on room air is in the high 90s. No jugular venous distention carotid bruits scleral icterus or facial asymmetry. Tearful during conversation. Breath sounds distant without crepitations or rhonchi heart sounds regular did not appreciate any murmur rub or gallop abdomen obese and nontender without palpable masses or bruits extremities show no edema distal pulses are symmetric 2-3+ out of 4+ neurologically she is alert oriented x3 moves all extremities can ambulate without assistance. Skin shows no petechia or rash. Musculoskeletal no major deformities identified. Risk Stratification Risk Stratification Applicable: Yes Age >/= 65: No >/= 3 CAD Risk Factors (HTN, HLD, DM, family hx of CAD, or current smoker): No Aspirin Use in the Past 7 Days: No Severe Angina (>/= episodes in 24 hours): Yes EKG ST Changes >/= 0.5mm: Yes Positive Cardiac Marker: Yes RALPH Risk Stratification Score: 3 RALPH % Risk: 13% Risk Objective Data Vital Signs: Vital Signs Temp Pulse Resp BP Pulse Ox 97 F L 87 16 164/125 H 99 09/10/21 15:20 09/10/21 15:24 09/10/21 15:20 09/10/21 15:20 09/10/21 15:20 Oxygen Flow Rate (L/min) 2 Oxygen Delivery Method Room Air Weight: 219 lb 5.759 oz Body Mass Index (BMI) 42.8 Intake & Output: Intake and Output for Last 24 Hours 09/08/21 09/09/21 09/10/21 23:59 23:59 23:59 Intake Total 480 / 480 Balance 480 / 480 Lab / Micro Data Result Diagrams: 09/10/21 05:31 09/10/21 05:31 Labs: Laboratory Results - last 24 hr 09/10/21 05:31: WBC 6.9, RBC 4.57, Hgb 11.7 L, Hct 34.5 L, MCV 75.5 L, MCH 25.6 L, MCHC 33.9, RDW Std Deviation 49.3 H, RDW Coeff of Ruby 18.1 H, Plt Count 402, MPV 9.5, Immature Gran % (Auto) 0.300, Neut % (Auto) 58.5, Lymph % (Auto) 33.6, [place] % (Auto) 6.0, Eos % (Auto) 1.2, Baso % (Auto) 0.4, Absolute Neuts (auto) 4.0, Absolute Lymphs (auto) 2.31, Nucleated RBC % 0 09/10/21 05:31: Sodium 138, Potassium 3.7, Chloride 109 H, Carbon Dioxide 22.0, Anion Gap 7, BUN 15, Creatinine 0.92, Estim Creat Clear Calc 61.89, Est GFR (MDRD) Af Amer 89, Est GFR (MDRD) Non-Af 74, BUN/Creatinine Ratio 16.2, Glucose 122 H, Calcium 8.8, Troponin I High Sens 251 H* 09/10/21 05:31: B-Natriuretic Peptide 1192.8 H 09/10/21 08:25: Troponin I High Sens 240 H* 09/10/21 11:44: Troponin I High Sens 247 H* Rhythm Strip Rhythm Strip: Sinus Tach Cardiology Labs/Tests 09/10/21 05:31: WBC 6.9, RBC 4.57, Hgb 11.7 L, Hct 34.5 L, MCV 75.5 L, MCH 25.6 L, MCHC 33.9, Plt Count 402, MPV 9.5, Immature Gran % (Auto) 0.300, Neut % (Auto) 58.5, Lymph % (Auto) 33.6, [place] % (Auto) 6.0, Eos % (Auto) 1.2, Baso % (Auto) 0.4, Absolute Neuts (auto) 4.0, Nucleated RBC % 0 09/10/21 05:31: Sodium 138, Potassium 3.7, Chloride 109 H, Carbon Dioxide 22.0, Anion Gap 7, BUN 15, Creatinine 0.92, Est GFR (MDRD) Af Amer 89, Est GFR (MDRD) Non-Af 74, BUN/Creatinine Ratio 16.2, Glucose 122 H, Calcium 8.8 09/10/21 05:31: B-Natriuretic Peptide 1192.8 H Rhythm: EKG: ECHO: Stress Test: Cardiac Cath: PCI: CT Surgery: Holter monitor: EPS: PPM: CXR: Chest CT Scan: Radiography Diagnostic Testing: Radiology Impression Chest X-Ray 09/10/21 05:55 IMPRESSION: Hazy lung opacities suggest possible pulmonary edema versus early infiltrates. Borderline cardiomegaly. Electronically Signed: Veronika Hinkle MD at 6:18 EDT ,
[2021-09-10] MEDS: Losartan Potassium 100 MG Tablet PO (16:42)
[2021-09-10] MEDS: SACUBITRIL/VALSARTAN 24/26 MG TABLET 1 EACH PO (22:29)
[2021-09-10] MEDS: Carvedilol 25 MG Tablet PO (22:29)
[2021-09-11] VITALS (7 sets, daily range): BP systolic 108–131; BP diastolic 77–88; PULSE 73–89; RESP 16–20; TEMP 36.3–37.4; O2SAT 97–100
[2021-09-11 06:26] LABS: Absolute Lymphocyte Count 1.52 X10^3/uL (0.83-4.51); Basophil# 0.04 X10^3/uL; Basophil% 0.7 % (0-1); Eosinophil# 0.13 X10^3/uL; Eosinophils% 2.1 % (0-5); Hematocrit 36.7 % (37-47); Hemoglobin 12.5 g/dL (12.0-15.0); Lymphocyte # 1.52 X10^3/ul (0.83-4.51); Lymphocyte % 25.1 % (19-41); Mean Corp Hgb Conc 34.1 g/dL (32-36); Mean Corpuscular Hgb 25.6 pg (27.0-32.0); Mean Corpuscular Volume 75.2 fL (81-99); Mean Platelet Vol. 10.4 fl (6.2-12.0); Monocyte# 0.36 X10^3/uL; NRBC Flagged by Analyzer 0 % (0-5); Neutrophil # 3.98 X10^3/uL (2.7-7.7); Neutrophil % 65.8 % (47-70); Platelet Count 380 K/mm3 (150-450); RBC Distribution Width CV 18.2 % (11.6-14.6); RBC Distribution Width SD 48.5 fl (35.1-43.9); Red Blood Count 4.88 M/mm3 (4.2-5.4); White Blood Count 6.1 K/mm3 (4.4-11.0)
[2021-09-11] MEDS: Ipratropium/Albuterol Sulfate 3 ML AMPUL.NEB INHALATION ×2 (06:40→10:59)
[2021-09-11 07:01] LABS: Anion Gap 8 (5-15); BUN 16 mg/dL (7-18); BUN/Creat Ratio 17.6 RATIO (10-20); Calcium,Total 9.4 mg/dL (8.5-10.1); Chloride 104 mmol/L (98-107); Creatinine, Serum 0.91 mg/dL (0.55-1.02); EST Glomerular Filtration Rate 75 mL/min (>60); Est Glom Filt Rate - Afr Amer 91 mL/min (>60); Estimated Creatinine Clearance 62.57 ml/min; Glucose 105 mg/dL (74-106); Potassium 3.3 mmol/L (3.5-5.1); Sodium Level 137 mmol/L (136-145)
--- NOTE | 2021-09-11 08:56 | PCM.PN.CARD ---
Subjective Subjective The patient was seen in evaluated. Appears to be doing much better now. It appears that this exacerbation was secondary to medication noncompliance Objective Data Vital Signs: Vital Signs Temp Pulse Resp BP Pulse Ox 98.3 F 83 16 131/88 H 99 09/11/21 04:00 09/11/21 07:02 09/11/21 04:00 09/11/21 04:00 09/11/21 04:00 Oxygen Flow Rate (L/min) 2 Oxygen Delivery Method Room Air Weight: 213 lb 2.992 oz Body Mass Index (BMI) 42.8 Intake & Output: Intake and Output for Last 24 Hours 09/09/21 09/10/21 09/11/21 23:59 23:59 23:59 Intake Total 970 / 1470 500 / 500 Output Total 400 / 1400 2200 / 2200 Balance 570 / 70 -1700 / -1700 Lab / Micro Data Result Diagrams: 09/11/21 05:59 09/11/21 05:59 Labs: Laboratory Results - last 24 hr 09/10/21 08:25: Troponin I High Sens 240 H* 09/10/21 11:44: Troponin I High Sens 247 H* 09/11/21 05:59: WBC 6.1, RBC 4.88, Hgb 12.5, Hct 36.7 L, MCV 75.2 L, MCH 25.6 L, MCHC 34.1, RDW Std Deviation 48.5 H, RDW Coeff of Ruby 18.2 H, Plt Count 380, MPV 10.4, Immature Gran % (Auto) 0.300, Neut % (Auto) 65.8, Lymph % (Auto) 25.1, [place] % (Auto) 6.0, Eos % (Auto) 2.1, Baso % (Auto) 0.7, Absolute Neuts (auto) 4.0, Absolute Lymphs (auto) 1.52, Nucleated RBC % 0 09/11/21 05:59: Sodium 137, Potassium 3.3 L, Chloride 104, Carbon Dioxide 25.0, Anion Gap 8, BUN 16, Creatinine 0.91, Estim Creat Clear Calc 62.57, Est GFR (MDRD) Af Amer 91, Est GFR (MDRD) Non-Af 75, BUN/Creatinine Ratio 17.6, Glucose 105, Calcium 9.4 Rhythm Strip Rhythm Strip: Sinus Tach Cardiology Labs/Tests 09/11/21 05:59: WBC 6.1, RBC 4.88, Hgb 12.5, Hct 36.7 L, MCV 75.2 L, MCH 25.6 L, MCHC 34.1, Plt Count 380, MPV 10.4, Immature Gran % (Auto) 0.300, Neut % (Auto) 65.8, Lymph % (Auto) 25.1, [place] % (Auto) 6.0, Eos % (Auto) 2.1, Baso % (Auto) 0.7, Absolute Neuts (auto) 4.0, Nucleated RBC % 0 09/11/21 05:59: Sodium 137, Potassium 3.3 L, Chloride 104, Carbon Dioxide 25.0, Anion Gap 8, BUN 16, Creatinine 0.91, Est GFR (MDRD) Af Amer 91, Est GFR (MDRD) Non-Af 75, BUN/Creatinine Ratio 17.6, Glucose 105, Calcium 9.4 Rhythm: EKG: ECHO: Stress Test: Cardiac Cath: PCI: CT Surgery: Holter monitor: EPS: PPM: CXR: Chest CT Scan: Physical Exam Const alert, oriented x3 and no apparent distress General Appearance: cooperative HEENT hearing grossly normal bilaterally Head and Scalp: atraumatic Eyes EOMs intact bilaterally Neck General: normal visual inspection Chest inspection of chest normal and palpation of chest normal Resp normal respiratory effort Auscultation: clear to auscultation bilaterally Cardio regular rate, regular rhythm, S1 normal heart sound and S2 normal heart sound Jugular Venous Distention: JVD GI normal to inspection, nondistended, normoactive bowel sounds Extremity normal capillary refill and no pedal edema Peripheral Pulses: Yes pulses 2+ throughout and femoral pulses present Skin no rashes or lesions noted Neuro oriented x3 and CN's II-XII intact bilaterally Psych Appearance: grossly normal and appropriate Assessment & Plan Assessment/Plan (1) Non-ischemic cardiomyopathy: PLAN: She does have a history of nonischemic cardiomyopathy. Her catheterization in May of this year demonstrated no obstructive coronary disease. My recommendation would be to put her back on her guideline directed medical therapy Start carvedilol Start Entresto and if she cannot afford to go back to losartan 100 mg a day Lasix 40 mg a day Spironolactone 50 mg a day (2) Accelerated hypertension with NYHA class 4 systolic heart failure: PLAN: She does have significant accelerated hypertension and would recommend the following Carvedilol 25 mg twice a day Amlodipine 10 mg a day Lasix 40 mg a day Entresto 1 twice a day (3) Elevated troponin: PLAN: The elevated troponin is likely from demand ischemia. At this time I would not followed up with any further work-up. The patient can be discharged later today for outpatient follow-up in my office. I have counseled her about medication compliance.
[2021-09-11] MEDS: Furosemide 40 MG Tablet PO (09:39)
[2021-09-11] MEDS: Enoxaparin 40 MG/0.4 ML Syringe SC (09:39)
[2021-09-11] MEDS: Spironolactone 50 MG Tablet PO (09:39)
[2021-09-11] MEDS: amLODIPine 10 MG Tablet PO (09:39)
[2021-09-11] MEDS: Carvedilol 25 MG Tablet PO (09:39)
[2021-09-11] MEDS: SACUBITRIL/VALSARTAN 24/26 MG TABLET 1 EACH PO (09:39)
--- NOTE | 2021-09-11 11:44 | CASEMGMT ---
Addendum entered by Verona Angel 09/11/21 15:31: This RN RAMYA emphasized importance to pt of f/u with cardiology and establishing with PCP, voices understanding. Cardiology appt made for pt prior to d/c. Trung GAMBLE CM Addendum entered by Verona Angel 09/11/21 13:07: Call back from Sandy at [facility] prior auth and prior auth completed at this time. Per Sandy, this will only be good for 30 days and they will need notes to further approve for further months. Pt aware of all, voices understanding. Call to [facility] retail pharmacy to notify of prior auth, Miracle sorianos understanding. Trung GAMBLE CM Original Note: Per [facility] retail pharmacy, pt will need prior auth for Entresto. Call to [facility] to obtain prior auth for Entresto and message left with Sandy, nurse, to call this RN CM back to complete prior auth over phone. CM to follow. Trung GAMBLE CM
--- NOTE | 2021-09-11 12:00 | CASEMGMT ---
MAVIS BUI Assessment: MAVIS BUI to room to meet with patient for initial transition planning/care coordination assessment. MAVIS BUI introduced self and role at [facility]. Patient voices understanding and consents to assessment at this time. No visitors present at bedside. Patient is alert and oriented and answers all questions appropriately. Patient sitting up in chair in room in no apparent distress. Care providers, pharmacy, and demographics verified/updated at this time. Admitting Dx: A on C Heart Failure PCP: No PCP. [facility] Healthcare Provider Directory provided to patient. Pt states she had received one last admission in May, but she is not sure if she still has it. MAVIS BUI discussed importance of getting established w/PCP. Pt states she plans to call tomorrow. Specialists: Denies Preferred Pharmacy: [facility] Retail Insurance: [employer] Prescription Benefit: yes. MAVIS BUI discussed importance of not running out of medications and taking them as prescribed.. Pt voices understanding. Living Will/HPOA: Patient denies having a living will or HPOA. She is interested in further information. Questions answered. 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 LNOK: sister, Autumn White Living Arrangements: Patient is a single mother and lives with 4 children (ages 13 yo, 10 yo twins and 3 yo) in upstairs duplex apartment with 6 steps to enter the home. Patient states independent with ADLs prior to hospitalization. 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 Smoking/ETOH: denies ETOH use. Hx of smoking. She states she quit in May after her last hospitalization. Transportation: Patient drives self and denies transportation concerns. DME/HHC/SNF: Patient denies having any DME in the home and denies need for DME at this time. Denies previous HHC or SNF stays. Patient has no concerns with going home at time of discharge. CM to follow for any discharge planning/needs. Patient voices no concerns/needs at this time. Advised patient to ask for CM if any questions/concerns/needs arise. Voices understanding. Plan: home
--- NOTE | 2021-09-11 15:00 | PCM.DC.SUM ---
Providers Date of Admission: 09/10/21 Date of Discharge: 09/11/21 Primary Care Physician: Alla Primary Care Phys Consultations 09/10/21 15:05 Consult: Cardiology Routine Consulting Provider: Delfina Castillo Reason for Consult: nonstemi, acute on chronic heart failure EMERGENT Consult: No MD Notified: Yes Date Notified: 09/10/21 Time Notified: 15:06 Method of Notification: Text Reason For Visit: ACUTE ON CHRONIC HEART FAILURE Diagnosis Discharge Diagnosis (1) Non-ischemic cardiomyopathy: Status: Acute Code(s): I42.8 - Other cardiomyopathies (2) Accelerated hypertension with NYHA class 4 systolic heart failure: Status: Acute Code(s): I11.0 - Hypertensive heart disease with heart failure; I50.20 - Unspecified systolic (congestive) heart failure (3) Elevated troponin: Status: Acute Code(s): R77.8 - Other specified abnormalities of plasma proteins Plan 1. Acute on chronic systolic congestive heart failure #2 nonischemic cardiomyopathy #3 noncompliance with medical treatment #4 type II non-STEMI #5 hypertensive emergency with acute on chronic systolic congestive heart failure Medications at Discharge Home Medications amlodipine 10 mg tablet tab blood pressure 09/10/21 furosemide 40 mg tablet tab water pill 09/10/21 amlodipine 10 mg tablet 10 mg PO DAILY #30 tabs 09/11/21 carvedilol 25 mg tablet 25 mg PO BID #60 tabs 09/11/21 furosemide 40 mg tablet 40 mg PO DAILY #30 tabs 09/11/21 sacubitril 24 mg-valsartan 26 mg tablet (Entresto) 1 tab PO BID #60 tabs 09/11/21 spironolactone 50 mg tablet 50 mg PO DAILY #30 tabs 09/11/21 Hospital Course Operations None Procedures None Summary of Care Provided Minutes Spent on Discharge: 32 Hospital Course: This 36-year-old black female was seen in the emergency room at [facility] with a chief complaint of shortness of breath which has been progressively getting worse over the past 2 to 3 weeks prior. Patient stated that she ran out of her cardiac medications 2 to 3 weeks ago, she did not have a family doctor and was unable to make an appointment because she had to care for her children. Patient stated that her shortness of breath was worse when she was lying flat. Patient had recently been diagnosed with a nonischemic cardiomyopathy and had been placed on medications for this. EKG was obtained, it showed a sinus tachycardia with lateral ST-T wave changes which were nonspecific. This appeared unchanged from a previous EKG dated 06/06/2021. Metabolic profile was within normal limits, CBC was remarkable for a hemoglobin of 11.9, troponin was elevated at 251, beta natruretic peptide was elevated at 1192. Portable chest x-ray was obtained which showed evidence of congestive heart failure, patient did not require supplemental oxygen. Patient was given IV Lasix and aspirin, she was also given Nitropaste, she was admitted to PCU, she was seen in consultation by cardiology and her medications were restarted. Patient was symptomatically improved after 24 hours. On 09/11/2021, patient was seen and examined: On examination she appeared in good health and spirits, she does not appear to be in any distress. Vital signs as documented. Skin warm and dry and without overt rashes. Neck without JVD, thyroid appears normal, trachea is midline, neck is supple. Lungs clear, normal air movement was noted. Heart exam notable for regular rhythm, normal sounds and absence of murmurs, rubs or gallops. Abdomen unremarkable and without evidence of organomegaly, masses, or abdominal aortic enlargement, bowel sounds are present in all 4 quadrants, no abdominal tenderness was noted. Extremities nonedematous, no cyanosis was noted, no clubbing was noted. Neuro: Cranial nerves II through XII are grossly intact, no focal motor deficits were noted, sensation to light touch and pinprick is intact, motor exam 5/5 throughout. Psych: Patient is alert and oriented x3, she does not appear anxious or depressed, she does not appear agitated. I had a long discussion with the patient concerning her noncompliance with previous medications, I told her it was imperative that she take her medications as prescribed and she seemed to understand this. [facility], an appointment to see Dr. Sorenson's office was made for later on this month. Patient was discharged home in stable condition on 09/11/2021. Weight / BMI Weight Weight: 96.7 kg Body Mass Index (BMI) 42.8 ABG / Lab / Microbiology Data Result Diagrams: 09/11/21 05:59 09/11/21 05:59 D/C Instructions Discharge Diet: No restrictions Weight Bearing Status: Full weight bearing Meaningful Use Info Meaningful Use Diagnoses (Choose all that apply): CHF CHF TYSON/ARB ordered at discharge?: Yes Documented LVEF (%): 35 Discharge Plan Admission Admit Date/Time: 09/10/21 07:25 Attending Provider: Jhonny Rothman Primary Care Provider: Care Physician,No Primary Consulting Providers: Delfina Castillo ; Claudine Gallegos ; Harmeet Sorenson Instructions Additional Instructions / Restrictions: Suggest you make appointment with primary care physician Discharge Orders/Prescriptions Prescriptions: New furosemide 40 mg Tablet 40 mg PO DAILY Qty: 30 1RF carvedilol 25 mg Tablet 25 mg PO BID Qty: 60 1RF amlodipine 10 mg Tablet 10 mg PO DAILY Qty: 30 1RF Entresto 24-26 mg Tablet 1 tab PO BID Qty: 60 0RF spironolactone 50 mg Tablet 50 mg PO DAILY Qty: 30 0RF Continued furosemide 40 mg tablet amlodipine 10 mg tablet Discontinued losartan 100 mg tablet Referrals / Follow Up: Care Physician,No Primary [Primary Care Provider] - Suze Mortensen PA [PHYSICIAN BOILERMAKING SUPERVISOR] - 09/19/21 9:30 am Disposition Disposition (needs filled in before D/C Order can be placed): Home, Self Care Charges/Coding Visit Charges Inpatient E&M: 83530 Disch Hosp
--- NOTE | 2021-09-11 15:38 | PCM.DC ---
Discharge Instructions Diet Discharge Diet: No restrictions Activity Discharge Activity: Return to Normal Activity Weight Bearing Status: Full weight bearing Follow Up Care Test Results: Test results from this visit will be discussed in further detail at your follow-up appointment, if applicable. Discharge Plan Admission Admit Date/Time: 09/10/21 07:25 Attending Provider: Jhonny Rothman Primary Care Provider: Love Pagan,Alla Primary Consulting Providers: Delfina Castillo ; Claudine Gallegos ; Harmeet Sorenson Instructions Additional Instructions / Restrictions: Suggest you make appointment with primary care physician Discharge Orders/Prescriptions Prescriptions: New furosemide 40 mg Tablet 40 mg PO DAILY Qty: 30 1RF carvedilol 25 mg Tablet 25 mg PO BID Qty: 60 1RF amlodipine 10 mg Tablet 10 mg PO DAILY Qty: 30 1RF Entresto 24-26 mg Tablet 1 tab PO BID Qty: 60 0RF spironolactone 50 mg Tablet 50 mg PO DAILY Qty: 30 0RF Continued furosemide 40 mg tablet amlodipine 10 mg tablet Discontinued losartan 100 mg tablet Referrals / Follow Up: Care Physician,No Primary [Primary Care Provider] - Suze Mortensen PA [PHYSICIAN INVENTORY CONTROL MANAGER] - 09/19/21 9:30 am Disposition Disposition (needs filled in before D/C Order can be placed): Home, Self Care
--- NOTE | 2021-09-11 17:18 | PCM.DC.SUM ---
Providers Date of Admission: 09/10/21 Date of Discharge: 09/11/21 Primary Care Physician: Alla Primary Care Phys Consultations 09/10/21 15:05 Consult: Cardiology Routine Consulting Provider: Delfina Castillo Reason for Consult: nonstemi, acute on chronic heart failure EMERGENT Consult: No MD Notified: Yes Date Notified: 09/10/21 Time Notified: 15:06 Method of Notification: Text Reason For Visit: ACUTE ON CHRONIC HEART FAILURE Diagnosis Discharge Diagnosis (1) Non-ischemic cardiomyopathy: Status: Acute Code(s): I42.8 - Other cardiomyopathies (2) Accelerated hypertension with NYHA class 4 systolic heart failure: Status: Acute Code(s): I11.0 - Hypertensive heart disease with heart failure; I50.20 - Unspecified systolic (congestive) heart failure (3) Elevated troponin: Status: Acute Code(s): R77.8 - Other specified abnormalities of plasma proteins Medications at Discharge Home Medications amlodipine 10 mg tablet tab blood pressure 09/10/21 furosemide 40 mg tablet tab water pill 09/10/21 amlodipine 10 mg tablet 10 mg PO DAILY #30 tabs 09/11/21 carvedilol 25 mg tablet 25 mg PO BID #60 tabs 09/11/21 furosemide 40 mg tablet 40 mg PO DAILY #30 tabs 09/11/21 sacubitril 24 mg-valsartan 26 mg tablet (Entresto) 1 tab PO BID #60 tabs 09/11/21 spironolactone 50 mg tablet 50 mg PO DAILY #30 tabs 09/11/21 Weight / BMI Weight Weight: 96.7 kg Body Mass Index (BMI) 42.8 ABG / Lab / Microbiology Data Result Diagrams: 09/11/21 05:59 09/11/21 05:59 Laboratory: Laboratory Results - last 24 hr 09/11/21 05:59: WBC 6.1, RBC 4.88, Hgb 12.5, Hct 36.7 L, MCV 75.2 L, MCH 25.6 L, MCHC 34.1, RDW Std Deviation 48.5 H, RDW Coeff of Ruby 18.2 H, Plt Count 380, MPV 10.4, Immature Gran % (Auto) 0.300, Neut % (Auto) 65.8, Lymph % (Auto) 25.1, [place] % (Auto) 6.0, Eos % (Auto) 2.1, Baso % (Auto) 0.7, Absolute Neuts (auto) 4.0, Absolute Lymphs (auto) 1.52, Nucleated RBC % 0 09/11/21 05:59: Sodium 137, Potassium 3.3 L, Chloride 104, Carbon Dioxide 25.0, Anion Gap 8, BUN 16, Creatinine 0.91, Estim Creat Clear Calc 62.57, Est GFR (MDRD) Af Amer 91, Est GFR (MDRD) Non-Af 75, BUN/Creatinine Ratio 17.6, Glucose 105, Calcium 9.4 D/C Instructions Discharge Diet: No restrictions Weight Bearing Status: Full weight bearing Discharge Plan Admission Admit Date/Time: 09/10/21 07:25 Attending Provider: Jhonny Rothman Primary Care Provider: Care Physician,No Primary Consulting Providers: Delfina Castillo ; Claudine Gallegos ; Harmeet Sorenson Instructions Additional Instructions / Restrictions: Suggest you make appointment with primary care physician Discharge Orders/Prescriptions Prescriptions: New furosemide 40 mg Tablet 40 mg PO DAILY Qty: 30 1RF carvedilol 25 mg Tablet 25 mg PO BID Qty: 60 1RF amlodipine 10 mg Tablet 10 mg PO DAILY Qty: 30 1RF Entresto 24-26 mg Tablet 1 tab PO BID Qty: 60 0RF spironolactone 50 mg Tablet 50 mg PO DAILY Qty: 30 0RF Continued furosemide 40 mg tablet amlodipine 10 mg tablet Discontinued losartan 100 mg tablet Referrals / Follow Up: Care Physician,No Primary [Primary Care Provider] - Suze Mortensen PA [PHYSICIAN IMPLEMENT MECHANIC] - 09/19/21 9:30 am Disposition Disposition (needs filled in before D/C Order can be placed): Home, Self Care
== END 2021-09-11 16:11 | disposition home or self-care (01) | DRG 194 ==
LOC: ED 07:12 → PCU 07:51
PROVIDERS: Admitting Provider Student in an Organized Health Care Education/Training Program; Emergency Provider Emergency Medicine; Visit Provider Internal Medicine
DX: I11.0 Hypertensive heart disease with heart failure (principal); I21.A1 Myocardial infarction type 2; I42.8 Other cardiomyopathies; I50.43 Acute on chronic combined systolic (congestive) and diastolic (congestive) heart failure; Z68.41 Body mass index [BMI] 40.0-44.9, adult; E87.6 Hypokalemia; I16.1 Hypertensive emergency; E66.9 Obesity, unspecified; Z87.891 Personal history of nicotine dependence; Z91.14 Patient's other noncompliance with medication regimen; Z79.899 Other long term (current) drug therapy
CPT/HCPCS: 36415; 71045; 80048; 83880; 84484; 85025; 93005; 94640; 97802; 99285; A4216; J1940

== ENCOUNTER → 2021-09-26 | Outpatient (CLI) | payer MEDICAID, SELFPAY ==
[2021-09-26 15:30] LABS: ALB/GLOB Ratio 0.8 RATIO (0.9-2.4); AST(SGOT) 22 U/L (15-37); Alanine Aminotransfer ALT/SGPT 25 U/L (13-56); Albumin, Serum 3.6 g/dL (3.2-5.0); Alkaline Phosphatase 46 U/L (45-117); Anion Gap 5 (5-15); BUN 19 mg/dL (7-18); BUN/Creat Ratio 18.6 RATIO (10-20); Calcium,Total 9.5 mg/dL (8.5-10.1); Chloride 104 mmol/L (98-107); Creatinine, Serum 1.02 mg/dL (0.55-1.02); EST Glomerular Filtration Rate 66 mL/min (>60); Est Glom Filt Rate - Afr Amer 80 mL/min (>60); Ferritin 22 ng/mL (8-252); Globulin 4.8 g/dL (2.2-4.2); Glucose 99 mg/dL (74-106); Iron 64 ug/dL (50-170); Iron Binding Capacity,Total 389 ug/dL (250-450); PERCENT IRON SATURATION 16.5 % (15.0-55.0); Potassium 4.1 mmol/L (3.5-5.1); Protein, Total 8.4 g/dL (6.4-8.2); Sodium Level 138 mmol/L (136-145)
== END | disposition home or self-care (01) ==
PROVIDERS: Visit Provider Internal Medicine
DX: I11.0 Hypertensive heart disease with heart failure (principal); I50.20 Unspecified systolic (congestive) heart failure; D50.9 Iron deficiency anemia, unspecified
CPT/HCPCS: 36415; 80053; 82728; 83540; 83550

== ENCOUNTER → 2021-10-10 | Outpatient (CLI) | payer MEDICAID, SELFPAY ==
--- NOTE | 2021-10-10 08:40 | US_ITS ---
STUDY: SUPERFICIAL ULTRASOUND - REASON FOR EXAM: Female, 36 years old. Pain around site. TECHNIQUE: A superficial ultrasound was performed with real-time and static galdamez-scale imaging. COMPARISON: None. FINDINGS: The right lateral aspect of the scar of the was examined. The palpable abnormality corresponds to an irregular heterogeneous 4.5 cm x 3 cm x 4 cm hypoechoic soft tissue density. Vascularity is seen within it. A biopsy is indicated for further evaluation. US/Abdomen Limited IMPRESSION: 4.5 cm x 3 cm x 4 cm hypoechoic heterogeneous soft tissue density corresponding to the palpable abnormality along the right lateral aspect of the scar. Increased vascularity is seen within it. Biopsy recommended. Electronically Signed: Roney Ruelas MD at 9:38 EDT ,
== END | disposition home or self-care (01) ==
LOC: US 08:39
PROVIDERS: Referring Provider Internal Medicine; Visit Provider Internal Medicine
DX: R52 Pain, unspecified (principal); L90.5 Scar conditions and fibrosis of skin
CPT/HCPCS: 76705

== ENCOUNTER 2022-02-22 14:39 | Emergency (ER) | payer MEDICAID, SELFPAY ==
[2022-02-22 14:40] VITALS: BP 158/112; PULSE 94; RESP 16; TEMP 36.7; O2SAT 96; BMI 42.3
--- NOTE | 2022-02-22 17:23 | EDS_ITS ---
HPI History of Present Illness Chief Complaint: General Illness Informant: patient Narrative Narrative: Patient presents with about 24 to 30 hours of cough that is minimal. She mostly has myalgias, hot cold sensation, mild headaches, decreased appetite without na usea vomiting diarrhea. She states she just does not feel well overall. She is not having chest pain. Despite a slight cough, she said cough is a minor part of this illness and she does not feel little short of breath. She is taking her meds for blood pressure. She is taking her Lasix. No known exposure to influenza or COVID. Nothing really makes her symptoms better or worse but she has not tried much. She is also been sleeping quite a bit. [facility] Medical History Anxiety Cardiology follow-up encounter Cardiomyopathy CHF (NYHA class III, ACC/AHA stage C) HFrEF (heart failure with reduced ejection fraction) Hypertension Myocardial infarct Non compliance w medication regimen Non-ischemic cardiomyopathy Smoker TIA (transient ischemic attack) Home Medications nicotine 7 mg/24 hr daily transdermal patch 1 patch transdermal Q24H #28 ea 09/26/21 [Rx Last Taken Unknown] furosemide 40 mg tablet 40 mg PO DAILY #90 tabs 10/12/21 [Rx Last Taken Unknown] spironolactone 50 mg tablet 50 mg PO DAILY #90 tabs 10/12/21 [Rx Last Taken Unknown] amlodipine 10 mg tablet 10 mg PO DAILY #90 tabs 12/22/21 [Rx Last Taken Unknown] [facility] test [facility] ea 12/22/21 [Rx Last Taken Unknown] carvedilol 25 mg tablet 25 mg PO BID #180 tabs 12/22/21 [Rx Last Taken Unknown] sacubitril 49 mg-valsartan 51 mg tablet 1 tab PO BID #180 tabs 12/22/21 [Rx Last Taken Unknown] oseltamivir 75 mg capsule (Tamiflu) 75 mg PO BID 5 days #10 caps 02/22/22 [Rx Last Taken Unknown] Allergy/AdvReac Type Severity Reaction Status Date / Time hydrocodone bitartrate Allergy Hives Verified 02/22/22 14:40 [From Vicodin] meperidine HCl [From Demerol] Allergy Hives Verified 02/22/22 14:40 Family History Mother Breast cancer Hypertension Diabetes Heart disease Grandmother Breast cancer Aunt Breast cancer Surgical History History of History of cardiac catheterization History of left heart catheterization (06/06/21) Social History household members: children housing: house current occupational status: employed current occupation: works at [employer] Smoking Status: Current some day smoker Electronic Cigarette Use: not used alcohol intake: current alcohol intake frequency: holidays/special occasions only substance use type: former substance user Date of last use: smoked marijuana in past do you feel safe at home: Yes ROS ROS ED Constitutional Constitutional ED: Reports chills, fever(s), subjective and sweats Eyes Eyes: Denies change in vision ENT ENT ED: Reports rhinorrhea; Denies sore throat Cardiovascular Cardiovascular: Denies chest pain or palpitations Respiratory/Chest Respiratory/Chest: Reports cough; Denies dyspnea or sputum Gastrointestinal Gastrointestinal: Denies abdominal pain, nausea or vomiting Genitourinary Genitourinary ED: Denies dysuria or hematuria Musculoskeletal Musculoskeletal: Reports arthralgias and myalgias Integumentary Denies rash Neurologic Neurologic: Reports headache(s); Denies paresthesias or weakness Endocrine Endocrinology: Denies polydipsia or polyuria Hematologic/Lymphatic Hematologic/Lymphatic: Denies easy bleeding or easy bruising Allergic/Immunologic Allergic/Immunologic ED: Denies urticaria EXAM Physical Exam Const Vital Signs: 02/22/22 14:40 Temperature 98.1 F Temperature Source Temporal Pulse Rate 94 Respiratory Rate 16 Blood Pressure 158/112 H Blood Pressure Mean 127 Pulse Ox 96 Oxygen Delivery Method Room Air Positive well nourished and well developed General Appearance ED: well developed and NAD HEENT Reports moist mucous membranes Eyes EOMs intact bilaterally General Eye ED: Negative for scleral icterus Neck no lymphadenopathy, supple and no JVD Resp normal respiratory effort and clear to auscultation bilaterally Resp Narrative: Lungs are actually completely clear. No rales at all at the bases. No pain with a deep breath. Her saturations are 96 to 98% on room air showing no hypoxia while I am in the room. Cardio regular rate and regular rhythm GI normal to inspection, nondistended, normoactive bowel sounds and non-tender Back/Spine no CVA tenderness Extremity General Extremety ED: Negative for tenderness Neuro Sensorium / Orientation: alert Psych mental status grossly normal Skin no rashes or lesions noted MDM MDM MDM Narrative Medical decision making narrative: I had a long talk with the patient. Her flu is negative. But I think she likely is influenza positive. She has all the symptoms with sudden onset. I discussed that we could consider Tamiflu because she does have influenza-like illness and we know the sensitivity of this test is quite poor. I do not think she needs an x-ray because she is having minimal cough and no dyspnea at all. I explained that Tamiflu is indicated when you have flu. Although not proven I am suspicious she does have it. It shortens symptoms by about 17 hours. It does not change severity of disease rate of admission or . It does have a significant rate and nausea and vomiting. She would like to try it and will stop if she has side effects. Discharge Plan Triage Chief Complaint: General Illness ED Provider: Dagoberto Leyva Dx/Rx/DC Orders Clinical Impression: Influenza-like illness Instructions: The Flu (Influenza) Prescriptions: New oseltamivir [Tamiflu] 75 mg capsule 75 mg PO BID 5 Days Qty: 10 0RF No Action nicotine 7 mg/24 hr patch 24 hour 1 patch transdermal Q24H Qty: 28 0RF sacubitril-valsartan 49-51 mg tablet 1 tab PO BID Qty: 180 1RF amlodipine 10 mg tablet 10 mg PO DAILY Qty: 90 1RF carvedilol 25 mg tablet 25 mg PO BID Qty: 180 1RF (DME) blood pressure test kit-large Kit See Rx Instructions .Route Qty: 1 0RF Rx Instructions: Check blood pressure twice a day furosemide 40 mg tablet 40 mg PO DAILY Qty: 90 1RF spironolactone 50 mg tablet 50 mg PO DAILY Qty: 90 1RF Primary Care Provider: Ashlie Romero Referrals: Ashlie Romero MD [Primary Care Provider] - 3-5 Days if not improving Disposition Disposition: Home, Self Care
== END 2022-02-22 17:43 | disposition home or self-care (01) ==
LOC: ED 17:33
PROVIDERS: Emergency Provider Emergency Medicine; PCP Internal Medicine; Visit Provider Emergency Medicine
DX: J11.1 Influenza due to unidentified influenza virus with other respiratory manifestations (principal); I11.0 Hypertensive heart disease with heart failure; I50.20 Unspecified systolic (congestive) heart failure; F17.200 Nicotine dependence, unspecified, uncomplicated
CPT/HCPCS: 87428; 99282

== ENCOUNTER → 2022-09-06 | Outpatient (CLI) | payer MEDICAID, SELFPAY ==
[2022-09-06 12:00] LABS: Absolute Lymphocyte Count 1.47 X10^3/uL (0.83-4.51); Absolute Neutrophil Count 2.1 X10^3/uL (2.0-7.7); Basophil# 0.03 X10^3/uL; Basophil% 0.7 % (0-1); Eosinophil# 0.22 X10^3/uL; Eosinophils% 5.1 % (0-5); Hematocrit 30.7 % (37-47); Hemoglobin 10.1 g/dL (12.0-15.0); Lymphocyte # 1.47 X10^3/ul (0.83-4.51); Lymphocyte % 33.9 % (19-41); Mean Corp Hgb Conc 32.9 g/dL (32-36); Mean Corpuscular Hgb 24.6 pg (27.0-32.0); Mean Corpuscular Volume 74.9 fL (81-99); Mean Platelet Vol. 10.7 fl (6.2-12.0); Monocyte# 0.49 X10^3/uL; Monocyte% 11.3 % (0-10); NRBC Flagged by Analyzer 0 % (0-5); Neutrophil # 2.11 X10^3/uL (2.7-7.7); Neutrophil % 48.8 % (47-70); Platelet Count 412 K/mm3 (150-450); RBC Distribution Width CV 18.9 % (11.6-14.6); RBC Distribution Width SD 50.9 fl (35.1-43.9); White Blood Count 4.3 K/mm3 (4.4-11.0)
[2022-09-06 12:29] LABS: ALB/GLOB Ratio 0.7 RATIO (0.9-2.4); AST(SGOT) 18 U/L (15-37); Alanine Aminotransfer ALT/SGPT 16 U/L (13-56); Albumin, Serum 3.2 g/dL (3.2-5.0); Alkaline Phosphatase 46 U/L (45-117); Anion Gap 4 (5-15); BUN 18 mg/dL (7-18); BUN/Creat Ratio 22.3 RATIO (10-20); Chloride 110 mmol/L (98-107); Cholesterol 152 mg/dL (200); Creatinine, Serum 0.81 mg/dL (0.55-1.02); EST Glomerular Filtration Rate 86 mL/min (>60); Est Glom Filt Rate - Afr Amer 104 mL/min (>60); Globulin 4.5 g/dL (2.2-4.2); Glucose 97 mg/dL (74-106); High Density Lipoprotein 66 mg/dL; Potassium 3.9 mmol/L (3.5-5.1); Protein, Total 7.7 g/dL (6.4-8.2); Sodium Level 139 mmol/L (136-145); Triglycerides 56 mg/dL; Very Low Density Lipoprotein 11 mg/dL (5-40)
== END | disposition home or self-care (01) ==
PROVIDERS: PCP Internal Medicine; Referring Provider Internal Medicine; Visit Provider Internal Medicine
DX: I11.0 Hypertensive heart disease with heart failure (principal); I50.20 Unspecified systolic (congestive) heart failure
CPT/HCPCS: 36415; 80053; 80061; 85025

== ENCOUNTER 2022-09-07 08:51 | Emergency (ER) | payer MEDICAID, SELFPAY ==
[2022-09-07 08:53] VITALS: BP 152/102; PULSE 79; RESP 14; TEMP 36.3; O2SAT 100; BMI 43.4
--- NOTE | 2022-09-07 10:01 | ED.VIS.GI ---
HPI HPI - GI History of Present Illness Chief Complaint: Abd Pain Informant: patient Abdominal Pain/Flank Pain Onset: - (1 year) Timing: Continuous Quality: Sharp Location: RLQ and LLQ Worsened by: - (Working) Relieved by: Not Relieved By Nothing Nausea/Vomiting/Emesis GI Symptom: Negative for Nausea or Vomiting Diarrhea/Melena/Hematochezia GI Symptom: Negative for Diarrhea, Melena or Hematochezia Associated Symptoms Associated Symptoms: Negative for Dysuria, Frequency or Hematuria Narrative Narrative: Patient presents with lower abdominal pain that has been constant for the last year. Patient describes it as sharp. Patient states it is diffuse across her lower abdomen. Patient states it is worse whenever she is at work. Patient denies any nausea or vomiting. Patient denies any diarrhea, melena, or hematochezia. Patient denies any dysuria, frequency, or hematuria. Patient states she is scheduled for a surgical consultation on 09/12/[address] Leyva. Patient denies any abnormal vaginal bleeding or discharge. [facility] Medical History Anxiety Cardiology follow-up encounter Cardiomyopathy CHF (NYHA class III, ACC/AHA stage C) Family history of BRCA gene mutation Family history of breast cancer HFrEF (heart failure with reduced ejection fraction) Hypertension Myocardial infarct Non compliance w medication regimen Non-ischemic cardiomyopathy Smoker TIA (transient ischemic attack) Home Medications blood pressure test kit-large #1 ea 12/22/21 [Rx Last Taken Unknown] amlodipine 10 mg tablet 10 mg PO DAILY #90 tabs 09/06/22 [Rx Last Taken Unknown] carvedilol 25 mg tablet 25 mg PO BID #180 tabs 09/06/22 [Rx Last Taken Unknown] sacubitril 49 mg-valsartan 51 mg tablet 1 tab PO BID #180 tabs 09/06/22 [Rx Last Taken Unknown] spironolactone 50 mg tablet 50 mg PO DAILY #90 tabs 09/06/22 [Rx Last Taken Unknown] naproxen 500 mg tablet 500 mg PO BID PRN #20 tabs 09/07/22 [Rx Last Taken Unknown] Allergy/AdvReac Type Severity Reaction Status Date / Time hydrocodone bitartrate Allergy Hives Verified 09/07/22 08:55 [From Vicodin] meperidine HCl [From Demerol] Allergy Hives Verified 09/07/22 08:55 Family History Mother Breast cancer Hypertension Diabetes Heart disease Grandmother Breast cancer Aunt Breast cancer Surgical History History of History of cardiac catheterization History of left heart catheterization (06/06/21) Social History household members: children housing: house current occupational status: employed 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 [employer] Smoking Status: Former smoker quit date: 03/24/22 pack-years: 3 Electronic Cigarette Use: not used alcohol intake: former substance use type: former substance user Date of last use: smoked marijuana in past do you feel safe at home: Yes ROS ROS ED Constitutional Constitutional ED: Denies chills or fever(s) Eyes Eyes: Denies blurry vision or change in vision ENT ENT ED: Denies rhinorrhea or sore throat Cardiovascular Cardiovascular: Denies chest pain or palpitations Respiratory/Chest Respiratory/Chest: Denies cough or dyspnea Gastrointestinal Gastrointestinal: Reports abdominal pain; Denies nausea or vomiting Genitourinary Genitourinary ED: Denies dysuria or hematuria Musculoskeletal Musculoskeletal: Denies back pain or neck pain Integumentary Denies abscess or rash Neurologic Neurologic: Denies headache(s) or weakness Allergic/Immunologic Allergic/Immunologic ED: Denies mouth swelling or urticaria EXAM Physical Exam Const Vital Signs: 09/07/22 08:53 Temperature 97.4 F L Temperature Source Temporal Pulse Rate 79 Respiratory Rate 14 Blood Pressure 152/102 H Blood Pressure Mean 118 Pulse Ox 100 Oxygen Delivery Method Room Air Positive well nourished, well developed and obese General Appearance ED: well developed and NAD Nutritional Appearance: obese HEENT Reports moist mucous membranes Neck supple and no JVD Resp normal respiratory effort and clear to auscultation bilaterally Cardio regular rate, regular rhythm and no murmurs GI normal to inspection, nondistended, normoactive bowel sounds GI Narrative: There is a tender nodular area over the right lower pelvic area near the pubic symphysis. There is no fluctuance. There is no edema or erythema. There is no discharge or drainage. Palpation: soft and tender LLQ, RLQ and suprapubic; Negative for guarding or rebound tenderness present Extremity normal to inspection General Extremety ED: Negative for edema or tenderness General Extremity: Negative for edema Neuro oriented x3, CN's II-XII intact bilaterally and no sensory deficits noted Sensorium / Orientation: alert Motor Exam: strength 5/5 throughout Psych mental status grossly normal Skin no rashes or lesions noted MDM MDM MDM Narrative Medical decision making narrative: Differential diagnosis includes pelvic infection, urinary tract infection, colitis, diverticulitis, ovarian cyst, and ectopic . CBC will be obtained to assess for leukocytosis and anemia. Basic metabolic profile will be obtained to assess for electrolyte abnormality and renal function. Urinalysis will be obtained to assess for urinary tract infection. Serum hCG will be obtained to assess for . CT scan of the abdomen pelvis will be obtained to assess for pelvic infection. Lab Data Attestation: I reviewed the patient's lab results. Lab results narrative: CBC was reviewed. White blood cell count was slightly low at 3.8. Hemoglobin was 11.2 and hematocrit was 32.5. Platelets were normal. Basic metabolic profile was reviewed and was within normal limits. Serum hCG was reviewed and was negative. Urinalysis was reviewed. There is no evidence of urinary tract infection or hematuria. Labs: Laboratory Results - last 24 hr 09/07/22 09/07/22 09/07/22 10:22 10:22 10:22 WBC 3.8 L RBC 4.41 Hgb 11.2 L Hct 32.5 L MCV 73.7 L MCH 25.4 L MCHC 34.5 RDW Std Deviation 49.9 H RDW Coeff of Ruby 18.8 H Plt Count 437 MPV 10.2 Immature Gran % (Auto) 0.300 Neut % (Auto) 49.2 Lymph % (Auto) 37.2 Cedar % (Auto) 7.7 Eos % (Auto) 4.8 Baso % (Auto) 0.8 Absolute Neuts (auto) 1.9 L Absolute Lymphs (auto) 1.40 Nucleated RBC % 0 Sodium 139 Potassium 4.0 Chloride 106 Carbon Dioxide 27.0 Anion Gap 6 BUN 17 Creatinine 0.86 Estim Creat Clear Calc 65.58 Est GFR (MDRD) Af Amer 97 Est GFR (MDRD) Non-Af 80 BUN/Creatinine Ratio 19.8 Glucose 97 Calcium 9.3 Serum , Qual NEGATIVE Urine Color Urine Clarity Urine pH Ur Specific [place] Urine Protein Urine Glucose (UA) Urine Ketones Urine Occult Blood Urine Nitrite Urine Bilirubin Urine Urobilinogen Ur Leukocyte Esterase Urine RBC Urine WBC Ur Squamous Epith Cells Urine Bacteria Urine Mucus 09/07/22 11:30 WBC RBC Hgb Hct MCV MCH MCHC RDW Std Deviation RDW Coeff of Ruby Plt Count MPV Immature Gran % (Auto) Neut % (Auto) Lymph % (Auto) Cedar % (Auto) Eos % (Auto) Baso % (Auto) Absolute Neuts (auto) Absolute Lymphs (auto) Nucleated RBC % Sodium Potassium Chloride Carbon Dioxide Anion Gap BUN Creatinine Estim Creat Clear Calc Est GFR (MDRD) Af Amer Est GFR (MDRD) Non-Af BUN/Creatinine Ratio Glucose Calcium Serum , Qual Urine Color Yellow Urine Clarity Sl. Cloudy Urine pH 6.5 Ur Specific [place] 1.015 Urine Protein 15 H Urine Glucose (UA) Normal Urine Ketones Negative Urine Occult Blood 25 H Urine Nitrite Negative Urine Bilirubin Negative Urine Urobilinogen Normal Ur Leukocyte Esterase Negative Urine RBC 0-5 SEEN Urine WBC 0 SEEN Ur Squamous Epith Cells 5-10 SEEN Urine Bacteria 1+ Urine Mucus 0 SEEN Radiography Diagnostic Testing: Clinical Impression(s) from Imaging Studies Abdomen/Pelvis CT 09/07/22 10:08 IMPRESSION: Enlargement of the distal aspect of the right rectus sheath muscle at the level of the right side of the pelvis as well as nodular densities in the subcutaneous fat overlying the region of the pubis. Clinical correlation is recommended. Electronically Signed: Roney Ruelas MD at 12:27 EDT , CT scan of the abdomen and pelvis was obtained. There is enlargement of the distal aspect of the right rectus sheath muscle at the level of the right side of the pelvis as well as nodular densities in the subcutaneous fat overlying the region of the pubis. This was interpreted by the radiologist and was also independently reviewed by myself. Treatment and Re-Evaluation :: Patient was given IV fluids, morphine, and Zofran. Patient is feeling better on reevaluation. Patient was advised of her findings. Patient was given a prescription for Naprosyn. Patient was instructed to follow-up with her surgeons as scheduled. Patient was instructed to return if worse in any way. Patient understood and was agreeable with the plan. All questions were answered. Discharge Plan Triage Chief Complaint: Abd Pain ED Provider: Mega Chu Dx/Rx/DC Orders Clinical Impression: Abdominal pain, Obesity Instructions: ED Abdominal Pain Unkn Cause Fem Prescriptions: New naproxen 500 mg tablet 500 mg PO BID PRN Qty: 20 0RF No Action (DME) blood pressure test kit-large Kit See Rx Instructions .Route Qty: 1 0RF Rx Instructions: Check blood pressure twice a day amlodipine 10 mg tablet 10 mg PO DAILY Qty: 90 0RF carvedilol 25 mg tablet 25 mg PO BID Qty: 180 0RF sacubitril-valsartan 49-51 mg tablet 1 tab PO BID Qty: 180 0RF spironolactone 50 mg tablet 50 mg PO DAILY Qty: 90 0RF Primary Care Provider: Ashlie Romero Referrals: Ashlie Romero MD [Primary Care Provider] - 5-7 Days Kiesha Marques DO [Med Staff - Active Staff] - Keep [facility] appointment Lizzy Leyva MD [Med Staff - Active Staff] - Keep [facility] appointment Disposition Disposition: Home, Self Care Discharge Date/Time: 09/07/22 13:12
--- NOTE | 2022-09-07 10:08 | CT_ITS ---
STUDY: CT ABDOMEN AND PELVIS WITH CONTRAST REASON FOR EXAM: Female, 37 years old. Abdominal pain -- IV PO Contrast RADIATION DOSAGE (If Supplied By Facility): CTDIvol = ( 17.70 ) mGy, DLP = ( 1055.20 ) mGycm TECHNIQUE: Transaxial images were obtained from the dome of the diaphragm to the symphysis pubis with oral contrast. Oral and amp; IV Gastrografin and amp; 100mL Isovue-300 was administered. Sagittal and coronal images were reconstructed. Individualized dose optimization techniques were used for this CT. COMPARISON: None. FINDINGS: Minimal increased linear markings at the lung bases suggest underlying atelectasis. The visualized portions of the heart are within normal limits. Normal liver. Normal gallbladder and extrahepatic biliary system. Normal spleen. Normal pancreas. Normal bilateral adrenal glands. Normal right kidney. Normal left kidney. Normal visualized stomach. Normal small intestine. Normal colon. The appendix is visualized and appears normal. Normal abdominal aorta. Normal inferior vena cava. Normal retroperitoneum. Normal urinary bladder. There is a small umbilical hernia containing fat. There is enlargement of the inferior aspect of the right rectus sheath muscle at the level of the right side of the pelvis. Several nodular densities are seen in the subcutaneous fat at that level. The largest measures 2.7 cm x 1.6 cm. There is also evidence of increased markings in the subcutaneous fat. This patient have a history of trauma. Normal osseous structures. CT/Abdomen/Pelvis WITH Contrast IMPRESSION: Enlargement of the distal aspect of the right rectus sheath muscle at the level of the right side of the pelvis as well as nodular densities in the subcutaneous fat overlying the region of the pubis. Clinical correlation is recommended. Electronically Signed: Roney Ruelas MD at 12:27 EDT ,
[2022-09-07] MEDS: 0.9% Normal Saline 1,000 ML 1000 ML IV (10:27)
[2022-09-07] MEDS: Ondansetron 4 MG/2 ML Vial IV (10:27)
[2022-09-07] MEDS: Morphine 4 MG/ML Syringe IV (10:27)
[2022-09-07 10:38] LABS: Absolute Neutrophil Count 1.9 X10^3/uL (2.0-7.7); Basophil# 0.03 X10^3/uL; Basophil% 0.8 % (0-1); Eosinophil# 0.18 X10^3/uL; Eosinophils% 4.8 % (0-5); Hematocrit 32.5 % (37-47); Hemoglobin 11.2 g/dL (12.0-15.0); Lymphocyte % 37.2 % (19-41); Mean Corp Hgb Conc 34.5 g/dL (32-36); Mean Corpuscular Hgb 25.4 pg (27.0-32.0); Mean Corpuscular Volume 73.7 fL (81-99); Mean Platelet Vol. 10.2 fl (6.2-12.0); Monocyte# 0.29 X10^3/uL; Monocyte% 7.7 % (0-10); NRBC Flagged by Analyzer 0 % (0-5); Neutrophil # 1.85 X10^3/uL (2.7-7.7); Neutrophil % 49.2 % (47-70); Platelet Count 437 K/mm3 (150-450); RBC Distribution Width CV 18.8 % (11.6-14.6); RBC Distribution Width SD 49.9 fl (35.1-43.9); Red Blood Count 4.41 M/mm3 (4.2-5.4); White Blood Count 3.8 K/mm3 (4.4-11.0)
[2022-09-07 10:45] LABS: Internal QC Validated? YES +Cl - CLEAR BKGD; Pregnancy, Serum, hCG Quali. NEGATIVE Negative
[2022-09-07 10:51] LABS: Anion Gap 6 (5-15); BUN 17 mg/dL (7-18); BUN/Creat Ratio 19.8 RATIO (10-20); Calcium,Total 9.3 mg/dL (8.5-10.1); Chloride 106 mmol/L (98-107); Creatinine, Serum 0.86 mg/dL (0.55-1.02); EST Glomerular Filtration Rate 80 mL/min (>60); Est Glom Filt Rate - Afr Amer 97 mL/min (>60); Estimated Creatinine Clearance 65.58 ml/min; Glucose 97 mg/dL (74-106); Sodium Level 139 mmol/L (136-145)
[2022-09-07 11:36] LABS: Mucous, Urine 0 SEEN /hpf (<or=2+); White Blood Cells 0 SEEN /hpf (0-5)
[2022-09-07 11:37] LABS: Color, Urine Yellow (Yellow); Glucose, Dipstick Normal (Normal); Ketone-Dipstick Negative (Negative); Leukocyte Esterase-Dipstick Negative /ul (Negative); Nitrite-Dipstick Negative (Negative); Occult Blood-Urine 25 /ul (Negative); Protein-Dipstick 15 mg/dl (Negative); Specific Gravity, Urine 1.015 (1.002-1.030); Urine Bilirubin Dipstick Negative (Negative); Urine Clarity Sl. Cloudy (Clear); Urine Urobilinogen Normal (Normal); Urine pH 6.5 (5.0 - 8.0)
[2022-09-07 11:48] LABS: Bacteria 1+ /hpf (None Seen); Red Blood Cells-Urine 0-5 SEEN /hpf (0-5); Squamous Epithelial Cells - UA 5-10 SEEN /hpf (5-10)
== END 2022-09-07 13:12 | disposition home or self-care (01) ==
PROVIDERS: Emergency Provider Emergency Medicine; PCP Internal Medicine; Visit Provider Emergency Medicine
DX: R10.31 Right lower quadrant pain (principal); I50.9 Heart failure, unspecified; I11.0 Hypertensive heart disease with heart failure; Z87.891 Personal history of nicotine dependence; E66.9 Obesity, unspecified; R10.32 Left lower quadrant pain
CPT/HCPCS: 74177; 80048; 81001; 84703; 85025; 96361; 96374; 96375; 99283; J7030; Q9967; A4216; J2405

== ENCOUNTER → 2022-09-20 | Outpatient (CLI) | payer MEDICAID, SELFPAY ==
--- NOTE | 2022-09-20 13:54 | ECHOD_ITS ---
Reason For Study: CHF Procedure This was a 2D Doppler, Color Flow transthoracic echocardiogram. Exam performed in department. Left Ventricle Normal LV size. The estimated ejection fraction is 40 %. Stage 1 diastolic dysfunction. There is mild to moderate global hypokinesis of the left ventricle. Right Ventricle Normal RV size. Normal systolic function. Atria Normal left atrium. Normal right atrium. Mitral Valve Normal mitral valve. Mild-Moderate (1-2+) eccentric mitral valve insufficiency. Tricuspid Valve Normal tricuspid valve. Aortic Valve Trisinus/trileaflet aortic valve. Pulmonic Valve Normal pulmonic valve. Great Vessels Normal aortic root. The pulmonary artery is normal size. Normal inferior vena cava. Pericardium/Pleural No pericardial effusion. MMode/2D Measurements & Calculations LVIDd: 5.7 cm IVSd: 0.87 cm Ao root diam: 3.2 cm LVIDs: 4.5 cm LVPWd: 1.4 cm RVDd: 3.6 cm FS: 20.8 % LAV(MOD-bp): 65.3 ml LVAd ap4: 41.5 cm2 LVAd ap2: 39.6 cm2 LAV(MOD-bp) Indexed: 33.4 ml/m2 LVLd ap4: 9.0 cm LVLd ap2: 8.9 cm LAV(MOD-sp2): 48.7 ml EDV(MOD-sp4): 158.4 ml EDV(MOD-sp2): 146.7 ml LAV(MOD-sp4): 83.1 ml EDV(sp4-el): 162.8 ml EDV(sp2-el): 150.3 ml LVAs ap4: 29.1 cm2 LVAs ap2: 26.5 cm2 LVLs ap4: 7.9 cm LVLs ap2: 8.0 cm ESV(MOD-sp4): 91.2 ml ESV(MOD-sp2): 70.7 ml ESV(sp4-el): 91.2 ml ESV(sp2-el): 75.0 ml EF(MOD-sp4): 42.4 % EF(MOD-sp2): 51.8 % EF(sp4-el): 44.0 % SV(MOD-sp4): 67.2 ml SV(MOD-sp2): 76.0 ml SV(sp4-el): 71.6 ml LA dimension(2D): 2.9 cm LA A4 area: 23.7 cm2 RA A4 area: 15.2 cm2 Doppler Measurements & Calculations MV E max james: 79.2 cm/sec Lat Peak E' James: 7.3 cm/sec Med Peak E' James: 7.7 cm/sec MV A max james: 95.3 cm/sec E/E' lat: 10.8 E/E' med: 10.3 MV E/A: 0.83 Ao V2 max: 149.2 cm/sec LV V1 max: 95.9 cm/sec Ao max P.9 mmHg LV V1 max P.7 mmHg ECHO/Echo Complete Interpretation Summary The estimated ejection fraction is 40 %. Normal LV size. Stage 1 diastolic dysfunction. Mild-Moderate (1-2+) eccentric mitral valve insufficiency. Compared to previous study, the left ventricular systolic function has improved .. Ordering Physician: Ashlie Romero Referring Physician: Ashlie Romero Performed By: Ro Perez RDCS and Student
[2022-09-20 15:11] LABS: Absolute Lymphocyte Count 1.92 X10^3/uL (0.83-4.51); Basophil# 0.04 X10^3/uL; Basophil% 0.7 % (0-1); Eosinophil# 0.17 X10^3/uL; Hematocrit 29.9 % (37-47); Hemoglobin 10.1 g/dL (12.0-15.0); Lymphocyte # 1.92 X10^3/ul (0.83-4.51); Lymphocyte % 33.9 % (19-41); Mean Corp Hgb Conc 33.8 g/dL (32-36); Mean Corpuscular Hgb 25.1 pg (27.0-32.0); Mean Corpuscular Volume 74.2 fL (81-99); Mean Platelet Vol. 10.2 fl (6.2-12.0); Monocyte% 8.8 % (0-10); NRBC Flagged by Analyzer 0 % (0-5); Neutrophil # 3.01 X10^3/uL (2.7-7.7); Neutrophil % 53.2 % (47-70); Platelet Count 358 K/mm3 (150-450); RBC Distribution Width CV 19.7 % (11.6-14.6); Red Blood Count 4.03 M/mm3 (4.2-5.4); White Blood Count 5.7 K/mm3 (4.4-11.0)
== END | disposition home or self-care (01) ==
LOC: CVS 13:41
PROVIDERS: PCP Internal Medicine; Referring Provider Internal Medicine; Visit Provider Internal Medicine
DX: D50.9 Iron deficiency anemia, unspecified (principal); I11.0 Hypertensive heart disease with heart failure; I50.9 Heart failure, unspecified
CPT/HCPCS: 36415; 85025; 93306

== ENCOUNTER 2023-01-06 08:23 | Emergency (ER) | payer MEDICAID, SELFPAY ==
[2023-01-06 08:24] VITALS: BP 197/141; PULSE 98; RESP 14; TEMP 35.9; O2SAT 100; BMI 46.0
--- NOTE | 2023-01-06 08:35 | ED.VIS.GI ---
HPI HPI - GI History of Present Illness Chief Complaint: Abd Pain Detail of Chief Complaint: Abdominal pain Informant: patient Narrative Narrative: Patient presents to the emergency room with complaint of abdominal pain and sore 2 days ago when her period started. Patient has similar pain every month. Patient states that she has endometriosis that is attached to the abdominal musculature and she is scheduled to see a specialist on the 18 of this month. Patient has been taking naproxen but not get much pain relief. She denies fever. She denies vomiting. She denies diarrhea. She denies blood in her stool or vomit. Does not think she is . [facility] Medical History Anxiety Cardiology follow-up encounter Cardiomyopathy CHF (NYHA class III, ACC/AHA stage C) Family history of BRCA gene mutation Family history of breast cancer HFrEF (heart failure with reduced ejection fraction) Hypertension Myocardial infarct Non compliance w medication regimen Non-ischemic cardiomyopathy Smoker TIA (transient ischemic attack) Home Medications blood pressure test kit-large #1 ea 12/22/21 [Rx Last Taken Unknown] amlodipine 10 mg tablet 10 mg PO DAILY #90 tabs 09/06/22 [Rx Last Taken Unknown] carvedilol 25 mg tablet 25 mg PO BID #180 tabs 09/06/22 [Rx Last Taken Unknown] sacubitril 49 mg-valsartan 51 mg tablet 1 tab PO BID #180 tabs 09/06/22 [Rx Last Taken Unknown] spironolactone 50 mg tablet 50 mg PO DAILY #90 tabs 09/06/22 [Rx Last Taken Unknown] naproxen 500 mg tablet 500 mg PO BID PRN #20 tabs 09/07/22 [Rx Last Taken Unknown] oxycodone-acetaminophen 5 mg-325 mg tablet (Percocet) 1 tab PO Q8H PRN pain 3 days #14 tabs 01/06/23 [Rx Last Taken Unknown] Allergy/AdvReac Type Severity Reaction Status Date / Time hydrocodone bitartrate Allergy Hives Verified 01/06/23 08:27 [From Vicodin] meperidine HCl [From Demerol] Allergy Hives Verified 01/06/23 08:27 Family History Mother Breast cancer Hypertension Diabetes Heart disease Grandmother Breast cancer Aunt Breast cancer Surgical History History of History of cardiac catheterization History of left heart catheterization (06/06/21) Social History household members: children housing: house current occupational status: employed 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 [employer] Smoking Status: Former smoker quit date: 03/24/22 pack-years: 3 Electronic Cigarette Use: not used alcohol intake: former substance use type: former substance user Date of last use: smoked marijuana in past do you feel safe at home: Yes ROS ROS ED Review of Systems ROS Unobtainable: other Constitutional Constitutional ED: Reports lethargy; Denies chills, fever(s), sweats or weight loss Eyes Eyes: Denies blurry vision, change in vision or diplopia ENT ENT ED: Denies rhinorrhea or sore throat Cardiovascular Cardiovascular: Denies chest pain, orthopnea or racing heartbeat Respiratory/Chest Respiratory/Chest: Denies cough, dyspnea, dyspnea on exertion, orthopnea or sputum Gastrointestinal Gastrointestinal: Reports abdominal pain; Denies diarrhea, nausea or vomiting Genitourinary Genitourinary ED: Denies dysuria, hematuria or urinary frequency Musculoskeletal Musculoskeletal: Denies arthralgias, back pain, myalgias or neck pain Integumentary Denies abscess, Abrasions or rash Neurologic Neurologic: Denies headache(s) or weakness Psychiatric Psychiatric: Denies anxiety, depression or suicidal thoughts Endocrine Endocrinology: Denies polydipsia, polyphagia or polyuria Hematologic/Lymphatic Hematologic/Lymphatic: Denies easy bleeding, easy bruising or lymphadenopathy Allergic/Immunologic Allergic/Immunologic ED: Denies mouth swelling, tongue swelling or urticaria EXAM Physical Exam Const Vital Signs: 01/06/23 08:24 01/06/23 11:09 Temperature 96.7 F L Temperature Source Temporal Pulse Rate 98 88 Respiratory Rate 14 Blood Pressure 197/141 H 162/105 H Blood Pressure Mean 159 124 Pulse Ox 100 100 Oxygen Delivery Method Room Air Positive well nourished and well developed General Appearance ED: well developed and NAD HEENT Reports TM's clear and moist mucous membranes normocephalic and atraumatic; Negative for trauma or tenderness Tympanic Membrane ED: Yes TM's clear Eyes PERRL and EOMs intact bilaterally General Eye ED: Negative for pale conjunctiva or scleral icterus Neck no lymphadenopathy, supple and no JVD General: Negative for tenderness Chest Wall inspection of chest normal and palpation of chest normal Chest: Negative for tenderness Resp normal respiratory effort and clear to auscultation bilaterally Effort and Inspection: Negative for respiratory distress or pain with movement Auscultation: Negative for rhonchi, wheezes or diminished lung sounds Cardio regular rate, regular rhythm, S1 normal heart sound, S2 normal heart sound and no murmurs Peripheral Pulses: pulses 2+ throughout GI normal to inspection, nondistended, normoactive bowel sounds, soft to palpation, non-distended and no masses GI Narrative: Tenderness palpation of the right lower quadrant with some guarding. There is no rebound, rigidity, or peritoneal signs. No mass palpated. No evidence of erythema to the skin or warmth. Back/Spine no CVA tenderness and no thoracic nor lumbar tenderness Extremity normal to inspection General Extremety ED: Negative for edema General Extremity: Negative for edema Neuro oriented x3, CN's II-XII intact bilaterally, no sensory deficits noted and gait normal Sensorium / Orientation: awake, alert, oriented to person, oriented to place and oriented to time Motor Exam: strength 5/5 throughout and strength abnormal Psych mental status grossly normal Skin no rashes or lesions noted and no wounds MDM MDM MDM Narrative Medical decision making narrative: Patient presents with right lower abdomen pain that is similar to pain she has had monthly with her periods. She is known to have endometriosis and is scheduled to see a specialist on the 18th of the month. She had a CAT scan in August that showed some increased fullness to the lower right rectal musculature that I suspect may be the endometriosis patient is talking about. In the differential again would be appendicitis or UTI or other acute process. Clinically the patient looks well. Her abdominal exam relatively benign. IV line established. Blood work obtained showed a white count of 6.3 with hemoglobin 10.8 and platelet count of 357. Chemistries unremarkable. LFTs were normal. hCG was negative. Urinalysis showed blood as she is on her menstrual period but no signs of infection. Patient was medicated with morphine and Zofran. She had some pain relief with that. At this point I do not feel any imaging is indicated and she is comfortable with plan to follow-up with her specialist and she will be given a prescription for Okay for pain. She is advised to return if fever, vomiting, worsening pain, or condition worsening way Lab Data Attestation: I reviewed the patient's lab results. Labs: Laboratory Results - last 24 hr 01/06/23 01/06/23 09:11 09:55 WBC 6.3 RBC 4.09 L Hgb 10.8 L Hct 31.0 L MCV 75.8 L MCH 26.4 L MCHC 34.8 RDW Std Deviation 46.6 H RDW Coeff of Ruby 17.2 H Plt Count 357 MPV 9.4 Immature Gran % (Auto) 0.300 Neut % (Auto) 65.9 Lymph % (Auto) 25.3 [place] % (Auto) 4.8 Eos % (Auto) 3.2 Baso % (Auto) 0.5 Absolute Neuts (auto) 4.1 Absolute Lymphs (auto) 1.58 Nucleated RBC % 0 Sodium 138 Potassium 3.4 L Chloride 106 Carbon Dioxide 27.0 Anion Gap 5 BUN 10 Creatinine 0.77 Estim Creat Clear Calc 73.25 Est GFR (MDRD) Af Amer 109 Est GFR (MDRD) Non-Af 90 BUN/Creatinine Ratio 12.9 Glucose 105 Lactic Acid 1.3 Calcium 9.1 Total Bilirubin 0.80 AST 14 L ALT 17 Alkaline Phosphatase 52 Total Protein 7.8 Albumin 3.4 Globulin 4.4 H Albumin/Globulin Ratio 0.8 L Serum , Qual NEGATIVE Urine Color Red Urine Clarity Cloudy Urine pH 7.0 Ur Specific [place] 1.010 Urine Protein 100 H Urine Glucose (UA) Normal Urine Ketones 5 H Urine Occult Blood 250 H Urine Nitrite Negative Urine Bilirubin Negative Urine Urobilinogen 1 H Ur Leukocyte Esterase 100 H Urine RBC > 100 SEEN Urine WBC 0-5 SEEN Ur Squamous Epith Cells 0 SEEN Urine Bacteria 0 SEEN Urine Mucus 0 SEEN Discharge Plan Triage Chief Complaint: Abd Pain ED Provider: Katherin Fleming Dx/Rx/DC Orders Clinical Impression: Abdominal pain, Endometriosis Instructions: Abdominal Pain, ED Endometriosis Prescriptions: New oxycodone-acetaminophen [Percocet] 5-325 mg tablet 1 tab PO Q8H PRN (Reason: pain) 3 Days Qty: 14 0RF No Action (DME) blood pressure test kit-large Kit See Rx Instructions .Route Qty: 1 0RF Rx Instructions: Check blood pressure twice a day amlodipine 10 mg tablet 10 mg PO DAILY Qty: 90 0RF carvedilol 25 mg tablet 25 mg PO BID Qty: 180 0RF sacubitril-valsartan 49-51 mg tablet 1 tab PO BID Qty: 180 0RF spironolactone 50 mg tablet 50 mg PO DAILY Qty: 90 0RF naproxen 500 mg tablet 500 mg PO BID PRN Qty: 20 0RF Primary Care Provider: Ashlie Romero Referrals: Ashlie Romero MD [Primary Care Provider] - 3-5 Days Activity Restrictions/Additional Instructions: Keep your appointment with specialist on the . Disposition Disposition: Home, Self Care Discharge Date/Time: 01/06/23 11:11
[2023-01-06] MEDS: Ondansetron 4 MG/2 ML Vial IV (09:10)
[2023-01-06] MEDS: Morphine 4 MG/ML Syringe IV (09:10)
[2023-01-06] MEDS: 0.9% Normal Saline (1000mL) 1,000 ML 125 ML IV (09:10)
[2023-01-06 09:25] LABS: Internal QC Validated? YES +Cl - CLEAR BKGD; Pregnancy, Serum, hCG Quali. NEGATIVE Negative
[2023-01-06 09:30] LABS: Absolute Lymphocyte Count 1.58 X10^3/uL (0.83-4.51); Absolute Neutrophil Count 4.1 X10^3/uL (2.0-7.7); Basophil# 0.03 X10^3/uL; Basophil% 0.5 % (0-1); Eosinophils% 3.2 % (0-5); Hemoglobin 10.8 g/dL (12.0-15.0); Lymphocyte # 1.58 X10^3/ul (0.83-4.51); Lymphocyte % 25.3 % (19-41); Mean Corp Hgb Conc 34.8 g/dL (32-36); Mean Corpuscular Hgb 26.4 pg (27.0-32.0); Mean Corpuscular Volume 75.8 fL (81-99); Mean Platelet Vol. 9.4 fl (6.2-12.0); Monocyte% 4.8 % (0-10); NRBC Flagged by Analyzer 0 % (0-5); Neutrophil # 4.12 X10^3/uL (2.7-7.7); Neutrophil % 65.9 % (47-70); Platelet Count 357 K/mm3 (150-450); RBC Distribution Width CV 17.2 % (11.6-14.6); RBC Distribution Width SD 46.6 fl (35.1-43.9); Red Blood Count 4.09 M/mm3 (4.2-5.4); White Blood Count 6.3 K/mm3 (4.4-11.0)
[2023-01-06 09:35] LABS: ALB/GLOB Ratio 0.8 RATIO (0.9-2.4); AST(SGOT) 14 U/L (15-37); Alanine Aminotransfer ALT/SGPT 17 U/L (13-56); Albumin, Serum 3.4 g/dL (3.2-5.0); Alkaline Phosphatase 52 U/L (45-117); Anion Gap 5 (5-15); BUN 10 mg/dL (7-18); BUN/Creat Ratio 12.9 RATIO (10-20); Calcium,Total 9.1 mg/dL (8.5-10.1); Chloride 106 mmol/L (98-107); Creatinine, Serum 0.77 mg/dL (0.55-1.02); EST Glomerular Filtration Rate 90 mL/min (>60); Est Glom Filt Rate - Afr Amer 109 mL/min (>60); Estimated Creatinine Clearance 73.25 ml/min; Globulin 4.4 g/dL (2.2-4.2); Glucose 105 mg/dL (74-106); Potassium 3.4 mmol/L (3.5-5.1); Protein, Total 7.8 g/dL (6.4-8.2); Sodium Level 138 mmol/L (136-145)
[2023-01-06 09:45] LABS: Lactic Acid 1.3 mmol/L (0.4-1.9)
[2023-01-06 10:04] LABS: Bacteria 0 SEEN /hpf (None Seen); Mucous, Urine 0 SEEN /hpf (<or=2+); Squamous Epithelial Cells - UA 0 SEEN /hpf (5-10)
[2023-01-06 10:33] LABS: Color, Urine Red (Yellow); Glucose, Dipstick Normal (Normal); Ketone-Dipstick 5 mg/dl (Negative); Leukocyte Esterase-Dipstick 100 /ul (Negative); Nitrite-Dipstick Negative (Negative); Occult Blood-Urine 250 /ul (Negative); Protein-Dipstick 100 mg/dl (Negative); Urine Bilirubin Dipstick Negative (Negative); Urine Clarity Cloudy (Clear); Urine Urobilinogen 1 mg/dl (Normal)
[2023-01-06 10:44] LABS: Red Blood Cells-Urine > 100 SEEN /hpf (0-5); White Blood Cells 0-5 SEEN /hpf (0-5)
[2023-01-06 11:09] VITALS: BP 162/105; PULSE 88; O2SAT 100
== END 2023-01-06 11:11 | disposition home or self-care (01) ==
PROVIDERS: Emergency Provider Emergency Medicine; PCP Internal Medicine; Visit Provider Emergency Medicine
DX: R10.9 Unspecified abdominal pain (principal); I11.0 Hypertensive heart disease with heart failure; I50.22 Chronic systolic (congestive) heart failure; N80.9 Endometriosis, unspecified; Z87.891 Personal history of nicotine dependence
CPT/HCPCS: 80053; 81001; 83605; 84703; 85025; 96361; 96374; 96375; 99283; J7030; A4216; J2405

== ENCOUNTER 2023-01-30 07:56 | Emergency (ER) | payer MEDICAID, SELFPAY ==
[2023-01-30 07:57] VITALS: BP 147/95; PULSE 90; RESP 16; TEMP 35.8; O2SAT 99
[2023-01-30 08:00] VITALS: BMI 44.4
--- NOTE | 2023-01-30 08:11 | RAD_ITS ---
STUDY: X-RAY - LEFT ANKLE REASON FOR EXAM: Female, 37 years old. Injury and swelling TECHNIQUE: 3 view(s) of the ankle. COMPARISON: None. FINDINGS: Normal visualized distal tibia and fibula. Normal medial and lateral malleoli. Normal tibiotalar articulation and ankle mortise. Normal visualized talus and calcaneus. The visualized subtalar, talonavicular, calcaneocuboid and tarsal articulations are normal. Soft tissue swelling. No fracture is seen. RAD/Ankle min 3 Views IMPRESSION: Soft tissue swelling. No fracture is seen. Electronically Signed: Roney Ruelas MD at 8:43 EST ,
--- NOTE | 2023-01-30 08:11 | EDS_ITS ---
HPI History of Present Illness Chief Complaint: Lower Extremity Injury Informant: patient Narrative Narrative: 37-year-old female presenting to the emergency room with left ankle injury. Patient has a known nonischemic cardiomyopathy and states that last night she was cooking. She had taken 5 blood pressure pills and got very hot. A family member believes that she crossed her legs. She states that she got very lightheaded and believes she passed out. She did not experience any chest pain shortness of breath or palpitations. She states that this is happened to her before when she gets hot. She recovered without any problems and went to go upstairs and lay down when she fell going up the stairs. This resulted in injury to the left ankle. She notes swelling and pain laterally. She has been able to bear weight but it is painful to walk on it. She denies any other injuries. [facility] Medical History Anxiety Cardiology follow-up encounter Cardiomyopathy CHF (NYHA class III, ACC/AHA stage C) Family history of BRCA gene mutation Family history of breast cancer HFrEF (heart failure with reduced ejection fraction) Hypertension Myocardial infarct Non compliance w medication regimen Non-ischemic cardiomyopathy Smoker TIA (transient ischemic attack) Home Medications blood pressure test kit-large #1 ea 12/22/21 [Rx Last Taken Unknown] amlodipine 10 mg tablet 10 mg PO DAILY #90 tabs 09/06/22 [Rx Last Taken 01/29/23] carvedilol 25 mg tablet 25 mg PO BID #180 tabs 09/06/22 [Rx Last Taken 01/29/23] sacubitril 49 mg-valsartan 51 mg tablet 1 tab PO BID #180 tabs 09/06/22 [Rx Last Taken 01/29/23] spironolactone 50 mg tablet 50 mg PO DAILY #90 tabs 09/06/22 [Rx Last Taken 01/29/23] Allergy/AdvReac Type Severity Reaction Status Date / Time hydrocodone bitartrate Allergy Hives Verified 01/30/23 07:57 [From Vicodin] meperidine HCl [From Demerol] Allergy Hives Verified 01/30/23 07:57 Family History Mother Breast cancer Hypertension Diabetes Heart disease Grandmother Breast cancer Aunt Breast cancer Surgical History History of History of cardiac catheterization History of left heart catheterization (06/06/21) Social History household members: children housing: house current occupational status: employed 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 [employer] Smoking Status: Former smoker quit date: 03/24/22 pack-years: 3 Electronic Cigarette Use: not used alcohol intake: former substance use type: former substance user Date of last use: smoked marijuana in past do you feel safe at home: Yes ROS ROS ED Constitutional Constitutional ED: Denies chills or weight loss Eyes Eyes: Denies change in vision or diplopia ENT ENT ED: Denies ear pain, rhinorrhea or sore throat Cardiovascular Cardiovascular: Reports other Details: Reported syncope ; Denies chest pain, orthopnea, palpitations or racing heartbeat Respiratory/Chest Respiratory/Chest: Denies cough, dyspnea or orthopnea Gastrointestinal Gastrointestinal: Denies abdominal pain, diarrhea, nausea or vomiting Genitourinary Genitourinary ED: Denies dysuria, hematuria or urinary frequency Musculoskeletal Musculoskeletal: Reports other Details: Left ankle pain and swelling ; Denies arthralgias, back pain, myalgias or neck pain Integumentary Denies abscess or rash Neurologic Neurologic: Denies headache(s) or weakness Psychiatric Psychiatric: Denies anxiety, depression, suicidal ideation or suicidal thoughts Endocrine Endocrinology: Denies polydipsia, polyphagia or polyuria Allergic/Immunologic Allergic/Immunologic ED: Denies mouth swelling, tongue swelling or urticaria EXAM Physical Exam Const Vital Signs: 01/30/23 07:57 Temperature 96.5 F L Temperature Source Temporal Pulse Rate 90 Respiratory Rate 16 Blood Pressure 147/95 H Blood Pressure Mean 112 Pulse Ox 99 Oxygen Delivery Method Room Air Positive well nourished and well developed General Appearance ED: well developed HEENT Reports normocephalic, head/scalp atraumatic and moist mucous membranes Eyes PERRL and EOMs intact bilaterally Neck no lymphadenopathy, supple and no JVD Resp normal respiratory effort and clear to auscultation bilaterally Cardio regular rate, regular rhythm and no murmurs GI normal to inspection, nondistended, normoactive bowel sounds and non-tender Palpation: soft Back/Spine no CVA tenderness and normal ROM Extremity Extremity Narrative: There is swelling of the ankle. Tenderness over the lateral malleolus. Achilles palpates intact with negative Gonzalez's test. There is no posterior or medial malleoli or tenderness. No fifth metatarsal pain. No swelling of the foot. No fibular head pain. The distal tibial shaft is nontender General Extremety ED: Negative for edema General Extremity: Negative for edema Neuro oriented x3 and CN's II-XII intact bilaterally Sensorium / Orientation: alert Motor Exam: strength 5/5 throughout Psych mental status grossly normal Mood & Affect: Negative for depressed or tearful Skin no rashes or lesions noted and no wounds MDM MDM MDM Narrative Medical decision making narrative: My independent interpretation of the plain films of the left ankle is a lateral malleolus fracture with soft tissue swelling. Patient will have pain medication written as well as been placed in a walking boot and as needed crutches. She will follow-up with orthopedics. At this point I believe the syncope was benign in nature. She notes that she has passed out with heat before. Should the patient have recurrent syncope in the next 24 to 48 hours would recommend her returning to emergency. Discharge Plan Triage Chief Complaint: Lower Extremity Injury ED Provider: Matthew Greenwood Dx/Rx/DC Orders Prescriptions: No Action (DME) blood pressure test kit-large Kit See Rx Instructions .Route Qty: 1 0RF Rx Instructions: Check blood pressure twice a day amlodipine 10 mg tablet 10 mg PO DAILY Qty: 90 0RF carvedilol 25 mg tablet 25 mg PO BID Qty: 180 0RF sacubitril-valsartan 49-51 mg tablet 1 tab PO BID Qty: 180 0RF spironolactone 50 mg tablet 50 mg PO DAILY Qty: 90 0RF Primary Care Provider: Ashlie Romero Referrals: Ashlie Romero MD [Primary Care Provider] -
[2023-01-30 09:31] VITALS: BP 149/98; PULSE 92; RESP 16; TEMP 36.1; O2SAT 98
== END 2023-01-30 09:33 | disposition home or self-care (01) ==
LOC: ED 08:44
PROVIDERS: Emergency Provider Emergency Medicine; PCP Internal Medicine; Visit Provider Emergency Medicine
DX: S82.65XA Nondisplaced fracture of lateral malleolus of left fibula, initial encounter for closed fracture (principal); I11.0 Hypertensive heart disease with heart failure; I42.8 Other cardiomyopathies; I50.22 Chronic systolic (congestive) heart failure; Z87.891 Personal history of nicotine dependence; Z79.899 Other long term (current) drug therapy; W10.9XXA Fall (on) (from) unspecified stairs and steps, initial encounter
CPT/HCPCS: 73610; 99284

== ENCOUNTER → 2023-03-14 | Outpatient (CLI) | payer MEDICAID, SELFPAY | END | disposition home or self-care (01) | LOC: PSN 09:46 | PROVIDERS: PCP Internal Medicine; Referring Provider Physician Assistant Medical; Visit Provider Physician Assistant Medical | DX: I11.0 Hypertensive heart disease with heart failure (principal); I50.20 Unspecified systolic (congestive) heart failure; I42.8 Other cardiomyopathies; R55 Syncope and collapse | CPT/HCPCS: 93225; 93226 ==

== ENCOUNTER 2023-05-05 19:23 | Emergency (ER) | payer MEDICAID, SELFPAY ==
[2023-05-05 19:25] VITALS: BP 132/92; PULSE 124; RESP 20; TEMP 36.6; O2SAT 99; BMI 43.9
[2023-05-05 19:27] VITALS: BP 132/92; PULSE 124; RESP 20; TEMP 36.6; O2SAT 99
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
--- NOTE | 2023-05-05 20:00 | EDS_ITS ---
HPI <NICOLE Ribeiro - Last Filed: 05/05/23 21:26> History of Present Illness Chief Complaint: Fever Narrative Narrative: Patient is a 37-year-old female with history of hypertension, who presents to the [facility] with 1 day of fever, chills, body aches, diarrhea as well as congestion. Patient states that her daughter was sick a couple days ago however she has gotten better. Patient states she is feeling much worse and is here for evaluation. She denies any nausea or vomiting, she denies any chest pain or shortness of breath. She does feel congested. [facility] <NICOLE Ribeiro - Last Filed: 05/05/23 21:26> [facility] Medical History Anxiety Cardiology follow-up encounter Cardiomyopathy CHF (NYHA class III, ACC/AHA stage C) Family history of BRCA gene mutation Family history of breast cancer HFrEF (heart failure with reduced ejection fraction) Hypertension Myocardial infarct Non compliance w medication regimen Non-ischemic cardiomyopathy Smoker TIA (transient ischemic attack) Home Medications blood pressure test kit-large #1 ea 12/22/21 [Rx Last Taken Unknown] amlodipine 10 mg tablet 10 mg PO DAILY #90 tabs 03/05/23 [Rx Last Taken Unknown] bupropion HCl 150 mg tablet,12 hr sustained-release (Wellbutrin SR) 150 mg PO BID #60 ea 03/05/23 [Rx Last Taken Unknown] carvedilol 25 mg tablet 25 mg PO BID #180 tabs 03/05/23 [Rx Last Taken Unknown] sacubitril 49 mg-valsartan 51 mg tablet 1 tab PO BID #180 tabs 03/05/23 [Rx Last Taken Unknown] spironolactone 50 mg tablet 50 mg PO DAILY #90 tabs 03/05/23 [Rx Last Taken Unknown] dapagliflozin propanediol 10 mg tablet (Farxiga) 10 mg PO DAILY #90 tabs 03/11/23 [Rx Last Taken Unknown] furosemide 40 mg tablet 40 mg PO DAILY #90 tabs 03/28/23 [Rx Last Taken Unknown] oseltamivir 75 mg capsule (Tamiflu) 75 mg PO BID 5 days #10 caps 05/05/23 [Rx Last Taken Unknown] Allergy/AdvReac Type Severity Reaction Status Date / Time hydrocodone bitartrate Allergy Hives Verified 05/08/23 08:56 [From Vicodin] meperidine HCl [From Demerol] Allergy Hives Verified 05/08/23 08:56 Family History Mother Breast cancer Hypertension Diabetes Heart disease Grandmother Breast cancer Aunt Breast cancer Surgical History History of History of cardiac catheterization History of left heart catheterization (06/06/21) Social History household members: children housing: house current occupational status: employed 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 Positive for fever and chills Eyes: Negative for vision loss, vision change, double vision ENT: Negative for any ear pain. Positive sore throat, congestion Cardiovascular: Negative for any chest pain, tightness, palpitations Respiratory: Negative for any sputum production, hemoptysis, dyspnea, dyspnea on exertion, orthopnea. Positive for cough Gastrointestinal: Negative for any abdominal pain, nausea, vomiting, constipation, blood in stool, blood in vomit. Positive diarrhea : Negative for any urinary frequency, dysuria, retention, blood in urine Muscle skeletal: Negative for any neck pain, back pain Neurological: Negative for any headache, syncope, dizziness Skin: Negative for any rashes, itching, abrasions, lacerations Psychiatric: Negative for any depression, anxiety, stress, suicidal ideation, homicidal ideation Hematologic: Negative for any excessive bruising, easy bleeding EXAM <NICOLE Ribeiro - Last Filed: 05/05/23 21:26> Physical Exam Narrative Exam Narrative: Vital signs reviewed. HEET: Head normocephalic atraumatic, TMs clear bilaterally. Posterior pharynx is clear, moist mucous membranes. Nares clear bilaterally. Neck: Supple with no lymphadenopathy or tenderness. No signs of meningismus. Cardiac: Regular rate and rhythm no murmurs gallops or rubs, equal peripheral pulses bilaterally. Respiratory: Patient does have expiratory wheeze to the right lower lung base. No chest tenderness. Abdomen: Soft, nontender, nondistended. No abdominal bruit or pulsatile masses. No hepatosplenomegaly Extremities: No peripheral edema, no signs of gross trauma or deformity. Active full range of motion of all extremities. Neuro: Cranial nerves II through XII intact, no focal neurological deficits. Skin: Clean dry and intact with no rash, purpura, petechiae, vesicles or pustules. Backs/flank: No CVA tenderness, no midline spinal tenderness, no deformity. Psych: Normal mood and affect. No SI, HI or acute psychosis. Const Vital Signs: 05/05/23 19:25 05/05/23 19:27 05/05/23 19:33 Temperature 98 F 98 F Temperature Source Temporal Temporal Pulse Rate 124 H 124 H Respiratory Rate 20 H 20 H Respiratory Effort Normal Respiratory Pattern Normal Blood Pressure 132/92 H 132/92 H Blood Pressure Mean 105 105 Pulse Ox 99 99 Oxygen Delivery Method 05/05/23 20:11 05/05/23 20:19 Temperature 103.3 F H Temperature Source Oral Pulse Rate 116 H 114 H Respiratory Rate 20 H 20 H Respiratory Effort Respiratory Pattern Normal Blood Pressure 116/88 H Blood Pressure Mean 97 Pulse Ox 99 Oxygen Delivery Method Room Air <Dr. Joya Knight DO - Last Filed: 05/08/23 10:02> Physical Exam Const Vital Signs: 05/05/23 19:25 05/05/23 19:27 05/05/23 19:33 Temperature 98 F 98 F Temperature Source Temporal Temporal Pulse Rate 124 H 124 H Respiratory Rate 20 H 20 H Respiratory Effort Normal Respiratory Pattern Normal Blood Pressure 132/92 H 132/92 H Blood Pressure Mean 105 105 Pulse Ox 99 99 Oxygen Delivery Method 05/05/23 20:11 05/05/23 20:19 Temperature 103.3 F H Temperature Source Oral Pulse Rate 116 H 114 H Respiratory Rate 20 H 20 H Respiratory Effort Respiratory Pattern Normal Blood Pressure 116/88 H Blood Pressure Mean 97 Pulse Ox 99 Oxygen Delivery Method Room Air MDM <NICOLE Ribeiro - Last Filed: 05/05/23 21:26> MDM Radiography Diagnostic Testing: Clinical Impression(s) from Imaging Studies Chest X-Ray 05/05/23 20:21 IMPRESSION: Normal x-ray examination of the chest. Electronically Signed: Susie Todd MD at 21:42 EST , Treatment and Re-Evaluation :: Patient appears generally well, patient appears nontoxic, vital signs are stable. Presenting to the emergency department with complaints of cough, congestion, body aches, diarrhea, viral-like symptoms. Differential diagnose includes community-acquired pneumonia, viral illness such as COVID, influenza, RSV, gastroenteritis. Patient will receive breathing treatments, two-view chest x-ray, by mouth Tylenol. All radiologic examinations were read, reviewed by the emergency department attending. From these reads, a plan of care will be put in place. She will be reevaluated Patient's chest x-ray two-view inter by the ER physician was negative. Patient's influenza was positive for influenza A. This does coincide with all the patient's symptoms. At this time, patient be given Tamiflu for home. She instructed to maintain hydration, to treat her fever. All questions were answered, she was given strict return precaution. Stable for discharge. <Dr. Joya Knight, DO - Last Filed: 05/08/23 10:02> [facility] Lab Data Attestation: I reviewed the patient's lab results. Radiography Diagnostic Testing: Clinical Impression(s) from Imaging Studies Chest X-Ray 05/05/23 20:21 IMPRESSION: Normal x-ray examination of the chest. Electronically Signed: Susie Todd MD at 21:42 EST , Treatment and Re-Evaluation :: Patient appears generally well, patient appears nontoxic, vital signs are stable. Presenting to the emergency department with complaints of cough, congestion, body aches, diarrhea, viral-like symptoms. Differential diagnose includes community-acquired pneumonia, viral illness such as COVID, influenza, RSV, gastroenteritis. Patient will receive breathing treatments, two-view chest x-ray, by mouth Tylenol. All radiologic examinations were read, reviewed by the emergency department attending. From these reads, a plan of care will be put in place. She will be reevaluated Patient's chest x-ray two-view inter by the ER physician was negative. Patient's influenza was positive for influenza A. This does coincide with all the patient's symptoms. At this time, patient be given Tamiflu for home. She instructed to maintain hydration, to treat her fever. All questions were answered, she was given strict return precaution. Stable for discharge. I have personally performed a face to face assessment of the patient and have reviewed the YENI Note. I performed a substantive portion of the visit including all aspects of the following. My otto findings include: History is patient is a 37-year-old female with history of hypertension presenting with flulike illness. Notes her daughter has some similar symptoms at home but not as severe. Exam is [ ] patient is febrile and tachycardic in the emergency room. While she looks ill she does not appear toxic. Head normocephalic atraumatic. Moist mucosal membranes. Normal oropharynx. Mild nasal congestion present. Normal tympanic membranes. No nuchal rigidity. Neck is supple. Heart sounds are regular but tachycardic. Lungs are clear to auscultation bilaterally. Does have intermittent cough in the room. Abdomen soft and nontender. No peripheral edema or rash appreciated. Medical Decison Making Chest x-ray reviewed by myself as well as radiology does not show any acute infiltrate. Patient given antipyretic in the emergency room. Is found to have positive influenza A swab. This likely cause her symptoms. She has not had about 24 hours of symptoms I do not think she requires further workup at this time. Will be started on Tamiflu. Given return precautions. Counseled on fever control and maintaining hydration. Patient verbalized agreement understand this plan. Discharged home in stable condition. Other additions or changes: [None] Discharge Plan Triage Chief Complaint: Fever ED Midlevel Provider: Leonardo Barber ED Provider: Joya Knight Dx/Rx/DC Orders Clinical Impression: Influenza A Instructions: ED Influenza (Adult) Prescriptions: New oseltamivir [Tamiflu] 75 mg capsule 75 mg PO BID 5 Days Qty: 10 0RF No Action (DME) blood pressure test kit-large Kit See Rx Instructions .Route Qty: 1 0RF Rx Instructions: Check blood pressure twice a day bupropion HCl [Wellbutrin SR] 150 mg tablet sustained-release 12 hr 150 mg PO BID Qty: 60 3RF Rx Instructions: take 1 tablet daily for 3 days, then increase to twice daily amlodipine 10 mg tablet 10 mg PO DAILY Qty: 90 0RF carvedilol 25 mg tablet 25 mg PO BID Qty: 180 0RF sacubitril-valsartan 49-51 mg tablet 1 tab PO BID Qty: 180 0RF spironolactone 50 mg tablet 50 mg PO DAILY Qty: 90 0RF Farxiga 10 mg tablet 10 mg PO DAILY Qty: 90 3RF furosemide 40 mg tablet 40 mg PO DAILY Qty: 90 0RF Stand Alone Forms: ED Work / School Excuse Primary Care Provider: Ashlie Romero Referrals: Ashlie Romero MD [Primary Care Provider] - Activity Restrictions/Additional Instructions: Maintain hydration, use of Tamiflu. Disposition Disposition: Home, Self Care Discharge Date/Time: 05/05/23 21:32
[2023-05-05] MEDS: Ipratropium/Albuterol Sulfate 3 ML AMPUL.NEB INHALATION (20:04)
[2023-05-05] MEDS: Albuterol 2.5 MG/3 ML VIAL.NEB. INHALATION (20:04)
[2023-05-05] MEDS: Acetaminophen 500 MG Tablet 1000 MG PO (20:05)
[2023-05-05 20:11] VITALS: PULSE 116; RESP 20
[2023-05-05 20:19] VITALS: BP 116/88; PULSE 114; RESP 20; TEMP 39.6; O2SAT 99
--- NOTE | 2023-05-05 20:21 | RAD_ITS ---
STUDY: X-RAY CHEST REASON FOR EXAM: Female, 37 years old. cough TECHNIQUE: PA and lateral views of the chest. COMPARISON: 09/10/2021. FINDINGS: The lungs are clear and expanded. There is no demonstrated pleural abnormality. Normal size heart. Normal mediastinum and deepali. Normal visualized pulmonary arteries. Normal visualized aortic arch and descending thoracic aorta. Normal visualized thoracic spine. Normal visualized ribs, clavicles, and shoulders. There is no demonstrated abnormality of the visualized soft tissue structures of the upper abdomen. RAD/Chest PA and Lateral IMPRESSION: Normal x-ray examination of the chest. Electronically Signed: Susie Todd MD at 21:42 EST ,
[2023-05-05 21:29] VITALS: BP 133/79; PULSE 101; RESP 20; TEMP 38.3; O2SAT 100
== END 2023-05-05 21:32 | disposition home or self-care (01) ==
PROVIDERS: Emergency Provider Emergency Medicine; PCP Internal Medicine; Visit Provider Emergency Medicine
DX: J10.1 Influenza due to other identified influenza virus with other respiratory manifestations (principal); I11.0 Hypertensive heart disease with heart failure; I50.22 Chronic systolic (congestive) heart failure; Z87.891 Personal history of nicotine dependence; R19.7 Diarrhea, unspecified
CPT/HCPCS: 94640; 71046; 87631; 99282

== ENCOUNTER 2023-08-09 08:32 | Emergency (ER) | payer MEDICAID, SELFPAY ==
[2023-08-09 08:32] VITALS: BP 147/95; PULSE 106; RESP 19; TEMP 36.8; O2SAT 98
--- NOTE | 2023-08-09 09:31 | ED.RN ---
Right foot wound
--- NOTE | 2023-08-09 09:35 | ED.RN ---
Bottom of feet 08/09/23 935am. Taken by Caren Perea RN
--- NOTE | 2023-08-09 09:36 | ED.RN ---
Left foot 08/09/23 936am Taken by Caren Fraser
--- NOTE | 2023-08-09 09:37 | ED.RN ---
Bottom of Right foot 08/09/23 936am Taken Caren Perea RN
--- NOTE | 2023-08-09 10:04 | EX.ED.DYSGE1 ---
HPI History of Present Illness Chief Complaint: Wound Informant: patient Narrative Narrative: 38-year-old female presenting to the emergency room with rash on the bilateral plantar aspect of her feet. 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 She bought a new pair of boots recently as she thought they would be more comfortable. She is noticed that she has been sweating a lot more in the boots. For about a week now she has had a rash on the plantar aspect of both feet. She states that the skin is peeling and as it peels off reveals red cracked skin underneath. She notes that along the heels and the midfoot as well as along the plantar surface of the bilateral great toes. She saw her primary care doctor 2 days ago and was prescribed Mupirocin. She states that she has a burning pain in her foot particularly with walking. Patient states she is not a diabetic. She denies any dorsal foot symptoms. [facility] Medical History TIA (transient ischemic attack) Cardiology follow-up encounter Family history of breast cancer Family history of BRCA gene mutation Non compliance w medication regimen Myocardial infarct HFrEF (heart failure with reduced ejection fraction) Non-ischemic cardiomyopathy CHF (NYHA class III, ACC/AHA stage C) Cardiomyopathy Smoker Anxiety Hypertension Home Medications ?Medication ?Instructions ?Recorded ?Last Taken ?Type blood pressure test kit-large #1 ea 12/22/21 Unknown Rx oseltamivir 75 mg capsule (Tamiflu) 75 mg PO BID 5 days #10 caps 05/05/23 Unknown Rx amlodipine 10 mg tablet 10 mg PO DAILY #90 tabs 06/28/23 Unknown Rx carvedilol 25 mg tablet 25 mg PO BID #180 tabs 06/28/23 Unknown Rx dapagliflozin propanediol 10 mg 10 mg PO DAILY #90 tabs 06/28/23 Unknown Rx tablet (Farxiga) furosemide 40 mg tablet 40 mg PO DAILY #90 tabs 06/28/23 Unknown Rx sacubitril 49 mg-valsartan 51 mg 1 tab PO BID #180 tabs 06/28/23 Unknown Rx tablet spironolactone 50 mg tablet 50 mg PO DAILY #90 tabs 06/28/23 Unknown Rx bupropion HCl 300 mg 24 hr tablet, 300 mg PO QAM #30 tabs 08/07/23 Unknown Rx extended release (Wellbutrin XL) mupirocin 2 % topical ointment 1 applic topical BID #15 grams 08/07/23 Unknown Rx fluconazole 150 mg tablet 150 mg PO QWEEK 3 weeks #3 tabs 08/09/23 Unknown Rx ketoconazole 2 %-hydrocortisone 1 applic topical BID 3 weeks #30 08/09/23 Unknown Rx 2.5 % topical cream grams Allergy/AdvReac Type Severity Reaction Status Date / Time hydrocodone bitartrate (From Allergy Hives Verified 08/07/23 11:11 Vicodin) meperidine HCl (From Demerol) Allergy Hives Verified 08/07/23 11:11 Family History Mother Breast cancer Hypertension Diabetes Heart disease Grandmother Breast cancer Aunt Breast cancer Surgical History History of cardiac catheterization History of History of left heart catheterization (06/06/21) Social History household members: children housing: house current occupational status: employed 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 [employer] Smoking Status: Former smoker quit date: 03/24/22 pack-years: 3 Electronic Cigarette Use: not used alcohol intake: former substance use type: former substance user Date of last use: smoked marijuana in past do you feel safe at home: Yes ROS ROS ED Constitutional Constitutional ED: Denies chills or weight loss Eyes Eyes: Denies change in vision or diplopia ENT ENT ED: Denies ear pain, rhinorrhea or sore throat Cardiovascular Cardiovascular: Denies chest pain, orthopnea, palpitations or racing heartbeat Respiratory/Chest Respiratory/Chest: Denies cough, dyspnea or orthopnea Gastrointestinal Gastrointestinal: Denies abdominal pain, diarrhea, nausea or vomiting Genitourinary Genitourinary ED: Denies dysuria, hematuria or urinary frequency Musculoskeletal Musculoskeletal: Denies arthralgias, myalgias or neck pain Integumentary Reports rash; Denies abscess Neurologic Neurologic: Denies headache(s) or weakness Psychiatric Psychiatric: Denies anxiety, depression, suicidal ideation or suicidal thoughts Endocrine Endocrinology: Denies polydipsia, polyphagia or polyuria Allergic/Immunologic Allergic/Immunologic ED: Denies mouth swelling, tongue swelling or urticaria EXAM Physical Exam Const Vital Signs: 08/09/23 08:32 Temperature 98.2 F Temperature Source Temporal Pulse Rate 106 H Respiratory Rate 19 H Blood Pressure 147/95 H Blood Pressure Mean 112 Pulse Ox 98 Oxygen Delivery Method Room Air Positive well nourished and well developed General Appearance ED: well developed HEENT Reports normocephalic, head/scalp atraumatic and moist mucous membranes Eyes PERRL and EOMs intact bilaterally Neck no lymphadenopathy, supple and no JVD Resp normal respiratory effort and clear to auscultation bilaterally Cardio regular rate, regular rhythm and no murmurs GI normal to inspection, nondistended, normoactive bowel sounds and non-tender Palpation: soft Back/Spine no CVA tenderness and normal ROM Extremity normal to inspection General Extremety ED: Negative for edema General Extremity: Negative for edema Neuro oriented x3 and CN's II-XII intact bilaterally Sensorium / Orientation: alert Motor Exam: strength 5/5 throughout Psych mental status grossly normal Mood & Affect: Negative for depressed or tearful Skin Skin Narrative: The plantar surface of both her feet particular over the heels and midfoot demonstrate peeling skin with an erythematous skin that is cracked underneath of it. There is peeling and similar skin located on the plantar surface of the great toes. There does not appear to be surrounding erythema. There is no foul smell. I do not see any significant issues in the other toes webspaces. MDM MDM MDM Narrative Medical decision making narrative: My differential would include allergic reaction tinea pedis cellulitis something autoimmune/eczema. I will place her on Diflucan once a week for 3 weeks as well has ketoconazole cream. Been asked that she change her socks frequently avoid using the boots. Can refer her to the truck podiatry. I have her discontinue the Mupirocin. I asked nursing to obtain a photograph of the feet the place of the medical record. History & Record Review Discussion w/independent historian: Patient Discharge Plan Triage Chief Complaint: Wound ED Provider: Matthew Greenwood Dx/Rx/DC Orders Clinical Impression: Athlete's foot on left, Athlete's foot on right Instructions: ED Athlete's Foot Prescriptions: New ketoconazole-hydrocortisone 2-2.5 % cream 1 applic topical BID 21 Days Qty: 30 2RF fluconazole 150 mg tablet 150 mg PO QWEEK 21 Days Qty: 3 0RF No Action (DME) blood pressure test kit-large Kit See Rx Instructions .Route Qty: 1 0RF Rx Instructions: Check blood pressure twice a day mupirocin 2 % ointment 1 applic topical BID Qty: 15 0RF bupropion HCl [Wellbutrin XL] 300 mg tablet extended release 24 hr 300 mg PO QAM Qty: 30 1RF oseltamivir [Tamiflu] 75 mg capsule 75 mg PO BID 5 Days Qty: 10 0RF sacubitril-valsartan 49-51 mg tablet 1 tab PO BID Qty: 180 0RF spironolactone 50 mg tablet 50 mg PO DAILY Qty: 90 0RF furosemide 40 mg tablet 40 mg PO DAILY Qty: 90 0RF carvedilol 25 mg tablet 25 mg PO BID Qty: 180 0RF Farxiga 10 mg tablet 10 mg PO DAILY Qty: 90 0RF amlodipine 10 mg tablet 10 mg PO DAILY Qty: 90 0RF Primary Care Provider: Ashlie Romero Referrals: Ashlie Romero MD [Primary Care Provider] - Matthew Núñez DPM [Med Staff - Active Staff] - 1 Week if not improving Activity Restrictions/Additional Instructions: Is very important that the feet stay dry. I would recommend not wearing the boots at work I would recommend changing your socks at least twice while at work Please discontinue the Mupirocin ointment Please schedule follow-up with podiatry Print Language: Nepali Disposition Disposition: Home, Self Care Discharge Date/Time: 08/09/23 09:53
== END 2023-08-09 09:53 | disposition home or self-care (01) ==
PROVIDERS: Emergency Provider Emergency Medicine; PCP Internal Medicine; Visit Provider Emergency Medicine
DX: B35.3 Tinea pedis (principal); I50.22 Chronic systolic (congestive) heart failure; I11.0 Hypertensive heart disease with heart failure; Z87.891 Personal history of nicotine dependence; F41.9 Anxiety disorder, unspecified; Z79.899 Other long term (current) drug therapy
CPT/HCPCS: 99282